=== PATIENT | female | born 1950 | race Asian ===

== ENCOUNTER 2019-09-11 14:54 | Outpatient (CLI) | payer MEDICARE, OTHER, SELFPAY ==
--- NOTE | ~2019-09-11 | MM_ITS ---
EXAMINATION: MM screening melanie BI w josse HISTORY: Screening mammogram, family history of breast cancer in her sister. TECHNIQUE: Craniocaudal and mediolateral oblique 3-D tomosynthesis images were obtained and synthetic 2-D images were generated. CAD analysis was submitted and interpreted. COMPARISON: 08/22/2018, 08/19/2017, 08/16/2016 BREAST PARENCHYMAL COMPOSITION: The breasts are heterogeneously dense, which may obscure small masses . FINDINGS: There is no evidence of suspicious mass, calcification, or architectural distortion to sugg est malignancy in either breast. There has been no suspicious interval change. IMPRESSION: 1. No mammographic evidence of malignancy. 2. Recommend routine screening mammography in one year. BI-RADS Category 1: Negative Reviewed, dictated and finalized at location A.
== END 2019-09-11 14:55 | disposition home or self-care (01) ==
LOC: ANHIMG 15:03
PROVIDERS: PCP Emergency Medicine; Visit Provider Emergency Medicine
DX: Z12.31 Encounter for screening mammogram for malignant neoplasm of breast (principal)
CPT/HCPCS: 77063; 77067

== ENCOUNTER 2019-12-09 12:55 | Emergency (ER) | payer MEDICARE, OTHER, SELFPAY ==
--- NOTE | 2019-12-09 13:00 | ED.ALLEREA ---
HPI - Allergic Reaction General Chief complaint: Anxiety Stated complaint: allegric reaction/weakness Time Seen by Provider: 12/09/19 13:00 Source: patient and RN notes reviewed History of Present Illness HPI narrative: Patient is a 6-year-old female who presents the urgent care with complaints of difficulty breathing, tight jaw, and palpitations. Patient appears to be in distress in the lobby. Patient was taken back to the room immediately and complaining of palpitations and feeling like she is going to pass out . states that she is allergic to multiple foods including all vegetables and fruits . Patient states prior to her arrival she made potato salad and is never had an allergy to potato salad . states that they have been trying to figure out all of her allergies and over the last few years it is been almost every food imaginable . Patient states that this is the worst episode she is ever had . Patient is talking without any difficulty. Patient has been aware of the plan of care. Related Data Home Medications Medication Instructions Recorded Confirmed cholecalciferol (vitamin D3) 25 1,000 unit PO DAILY 06/15/19 mcg (1,000 unit) tablet Allergies Allergy/AdvReac Type Severity Reaction Status Date / Time caffeine AdvReac Severe VERY Verified 11/04/17 07:13 SENSITIVE, HAS RAPID HEART BEAT Review of Systems Review of Systems: Narrative: CONSTITUTIONAL: Denies fever, chills, or sweats. EYES: Denies visual changes, redness, or discharge. ENT: Denies rhinorrhea, congestion, sore throat, or otalgia. CARDIOVASCULAR: Reports of palpitations RESPIRATORY: Reports of dyspnea GASTROINTESTINAL: Denies abdominal pain, nausea, vomiting, or diarrhea. GENITOURINARY: Denies dysuria or hematuria. SKIN: Denies rash or itching. MUSCULOSKELETAL: Denies back pain, joint pain, or myalgia. NEUROLOGIC: Reports of lightheadedness All other systems reviewed are negative, except as documented in HPI. [facility] Past Medical History Medical History (Updated 12/09/19 @ 15:58 by Adarsh Pedersen MD) Vitamin D deficiency disease Surgical History Surgical History (Updated 12/09/19 @ 15:55 by Adarsh Pedersen MD) H/O tubal ligation Social History Social History Smoking status: Former smoker Smoking end date: 07/04/96 Alcohol intake: never Comments At the time of my signature, I reviewed and agree with the nursing past medical, surgical, social, and family history. There is no relevant family history pertinent to the patient complaint. Exam Narrative: Exam Narrative: GENERAL: This is a well-nourished, well-developed patient, extremely anxious and hyperventilating HEAD: normocephalic, atraumatic. EYES: PERRL. Sclera clear/white. Vision is grossly intact. EARS: External ears normal NOSE: External nose normal with no obvious nasal discharge, nares without redness, no rhinorrhea. THROAT: Mucous membranes moist, posterior pharynx clear. NECK: Neck supple, non-tender without lymphadenopathy CARDIOVASCULAR: Tachycardic RESPIRATORY: Clear to auscultation. Breath sounds equal bilaterally. No wheezes, rales, or rhonchi. SKIN: warm, intact with no suspicious lesions or rash, good texture and turgor. NEURO: awake, alert, and oriented to person, place and time. There were no obvious focal neurologic abnormalities. EXTREMITIES: No clubbing, cyanosis, or edema. Course Vital Signs Vital signs: Vital Signs Temperature 98.2 F 12/09/19 13:04 Pulse Rate 101 H 12/09/19 13:04 Respiratory Rate 16 12/09/19 13:04 Blood Pressure 162/90 H 12/09/19 13:04 Pulse Oximetry 100 12/09/19 13:04 Temperature 98.2 F 12/09/19 13:04 Pulse Rate 101 H 12/09/19 13:04 Respiratory Rate 16 12/09/19 13:04 Blood Pressure 162/90 H 12/09/19 13:04 Pulse Oximetry 100 12/09/19 13:04 Reviewed?patient is informed that they may have pre-hypertensi
[2019-12-09 13:04] VITALS: BP 162/90; PULSE 101; RESP 16; TEMP 36.8; O2SAT 100
== END 2019-12-09 13:20 | disposition short-term general hospital (02) ==
LOC: EXPCOLL 13:03
PROVIDERS: Emergency Provider Nurse Practitioner Family
DX: R06.4 Hyperventilation (principal); R68.84 Jaw pain; R00.2 Palpitations; Z87.891 Personal history of nicotine dependence
CPT/HCPCS: 99215; G0463

== ENCOUNTER 2019-12-09 13:45 | Emergency (ER) | payer MEDICARE, OTHER, SELFPAY ==
[2019-12-09] VITALS (9 sets, daily range): BP systolic 126–157; BP diastolic 84–95; PULSE 59–95; RESP 14–31; TEMP 36.6; O2SAT 95–100
--- NOTE | 2019-12-09 14:30 | ECG_ITS ---
Measurements Intervals [place] Rate: 65 P: 59 NC: 166 QRS: 6 QRSD: 108 T: 45 QT: 400 QTc: 417 Interpretive Statements SINUS RHYTHM ATRIAL PREMATURE COMPLEX INCOMPLETE RIGHT BUNDLE BRANCH BLOCK BORDERLINE ECG Electronically Signed On 12-09-2019 16:17:00 CDT by Bertin Reynolds D.O.
[2019-12-09 15:07] LABS: Basophils Absolute Auto 0.1 K/mm3 (0.0-0.1); Basophils Percent Auto 0.9 % (0.2-1.2); Eosinophils Absolute Auto 0.1 K/mm3 (0-0.3); Eosinophils Percent Auto 0.9 % (0-4.4); Hematocrit 39.3 % (37.0-47.0); Hemoglobin 12.9 g/dL (12.0-15.0); Immature Granulocyte Absolute 0.01 K/mm3 (0.00-0.031); Immature Granulocyte Percent A 0.2 % (0-0.5); Lymphocytes Absolute Auto 1.03 K/mm3 (0.9-3.2); Lymphocytes Percent Auto 18.2 % (18.3-44.2); Mean Corpuscular HGB Conc 32.8 g/dl (32-36); Mean Corpuscular Hemoglobin 29.8 pg (26-34); Mean Corpuscular Volume 90.8 fl (80-100); Monocytes Absolute Auto 0.4 K/mm3 (0.1-0.6); Monocytes Percent Auto 6.9 % (2.6-8.5); Neutrophils Absolute Auto 4.1 K/mm3 (1.3-6.7); Neutrophils Percent Auto 72.9 % (45.5-73.1); Platelet Count Result 213 k/mm3 (150-375); Red Blood Count 4.33 M/mm3 (4.2-5.4); Red Cell Distribution Width 14.2 % (11.5-14.5); White Blood Count 5.7 K/mm3 (4.5-10.0)
--- NOTE | 2019-12-09 15:48 | ED.GENADULT ---
HPI - General Adult General Chief complaint: Allergic Reaction Stated complaint: ?allergic rxn vs anxiety Time Seen by Provider: 12/09/19 14:08 History of Present Illness HPI narrative: Patient is a 69-year-old female who presents ER with concerns for allergic reaction. Patient reports she ate some homemade potato salad and then started feeling like her heart was racing. She had no chest pain. She had some mild dyspnea. She thinks now that it may be related to an anxiety attack. Patient recently had an allergic reaction to toothpaste that caused swelling of her throat and lips. She has since discontinued that toothpaste. She will be seeing an car washer in the next week to have additional allergy testing performed. She reports she is sensitive to other foods. Other people of eaten the potato salad without having any side effects or illnesses related to it. Patient symptoms resolved on their own prior to arrival at an urgent care. Today she had no rash or itching. No difficulty swallowing. No swelling of the lips. Related Data Home Medications Medication Instructions Recorded Confirmed cholecalciferol (vitamin D3) 25 1,000 unit PO DAILY 06/15/19 mcg (1,000 unit) tablet Allergies Allergy/AdvReac Type Severity Reaction Status Date / Time caffeine AdvReac Severe VERY Verified 11/04/17 07:13 SENSITIVE, HAS RAPID HEART BEAT Review of Systems Review of Systems: All systems reviewed & are unremarkable except as noted in HPI and below Constitutional: Constitutional: Denies chills, Denies fever(s) and Denies weakness ENT: Denies dysphagia, Denies nasal congestion and Denies sore throat Cardiovascular: Cardiovascular: Denies chest pain and Denies radiating jaw, neck or arm pain Respiratory: Respiratory: Denies cough, Reports dyspnea and Denies wheezing Gastrointestinal: Gastrointestinal: Denies abdominal pain, Denies nausea and Denies vomiting Neurologic: Denies focal weakness and Denies numbness Psychiatric: Psychiatric: Reports anxiety and Denies depression [facility] Past Medical History Medical History (Updated 12/09/19 @ 15:58 by Adarsh Pedersen MD) Vitamin D deficiency disease Surgical History Surgical History (Updated 12/09/19 @ 15:55 by Adarsh Pedersen MD) H/O tubal ligation Social History Social History Smoking status: Former smoker Smoking end date: 07/04/96 Alcohol intake: never Exam Narrative: Exam Narrative: GENERAL: Well-appearing, well-nourished, and in no acute distress. HEAD: Normocephalic, atraumatic. ENT: Mucous membranes moist. Uvula midline, no edema of the lips or tongue. NECK: Supple. CHEST: Clear to auscultation. No respiratory distress. Clear speech. HEART: Regular rate and rhythm. Normal peripheral pulses. ABDOMEN: Soft, nontender, nondistendeds. EXTREMITIES: Normal range of motion. No edema. SKIN: Warm, dry, no rash. NEURO: Alert and oriented x3. Course Course Emergency Course: Patient may have had an anxiety attack. No symptoms while she was here. Recommend follow-up with her PCP. Vital Signs Vital signs: Vital Signs Temperature 97.9 F 12/09/19 13:45 Pulse Rate 95 12/09/19 13:45 Respiratory Rate 14 12/09/19 13:45 Blood Pressure 157/95 H 12/09/19 13:45 Pulse Oximetry 99 12/09/19 13:45 Temperature 97.9 F 12/09/19 13:45 Pulse Rate 67 12/09/19 14:46 Respiratory Rate 16 12/09/19 14:46 Blood Pressure 127/84 12/09/19 14:45 Pulse Oximetry 98 12/09/19 14:46 Medical Decision Making Vital Signs Vital Signs: Vital Signs Temperature 97.9 F 12/09/19 13:45 Pulse Rate 95 12/09/19 13:45 Respiratory Rate 14 12/09/19 13:45 Blood Pressure 157/95 H 12/09/19 13:45 Pulse Oximetry 99 12/09/19 13:45 Temperature 97.9 F 12/09/19 13:45 Pulse Rate 67 12/09/19 14:46 Respiratory Rate 16 12/09/19 14:46 Blood Pressure 127/84 06
[2019-12-09 15:58] LABS: Blood Urea Nitrogen 15 mg/dL (7-17); Calcium 8.8 mg/dL (8.4-10.2); Carbon Dioxide 30 mmol/L (22-30); Chloride 102 mmol/L (98-107); Estimated Glomerular Filt Rate > 60; Glucose 102 mg/dL (65-105); Sodium 136 mmol/L (137-145)
== END 2019-12-09 16:50 | disposition home or self-care (01) ==
PROVIDERS: Emergency Provider Emergency Medicine
DX: R00.2 Palpitations (principal); F41.9 Anxiety disorder, unspecified; E55.9 Vitamin D deficiency, unspecified; Z87.891 Personal history of nicotine dependence; I49.1 Atrial premature depolarization; I45.10 Unspecified right bundle-branch block
CPT/HCPCS: 36415; 80048; 85025; 93005; 99283

== ENCOUNTER 2019-12-14 22:58 | Emergency (ER) | payer MEDICARE, OTHER, SELFPAY ==
--- NOTE | ~2019-12-14 | XR_ITS ---
EXAMINATION: XR chest 2V DATE: 12/14/2019 23:56 INDICATION: Chest pain. TECHNIQUE: Frontal and lateral views of the chest were obtained. COMPARISON: None. FINDINGS: The chest demonstrates clear lungs without pneumonia, pleural effusion, or pneumothorax. Th e heart size is normal. There is mild chronic anterior wedging of L1 and T11 vertebral bodies. IMPRESSION: 1. No acute cardiopulmonary disease. Reviewed, dictated and finalized at location A.
[2019-12-14 23:06] VITALS: BP 164/100; PULSE 80; RESP 17; O2SAT 97
--- NOTE | 2019-12-14 23:15 | ED.CHESTPAIN ---
HPI - Chest Pain General Chief Complaint: Chest Pain Stated Complaint: cp, left arm pain Time Seen by Provider: 12/14/19 23:13 History of Present Illness HPI narrative: 69 yo female w/ h/o anxiety presents to the ED with chest pain. Started earlier this evening. Located in the center of the chest. Associated with posterior neck pain and stiffness radiating to the left shoulder. She has been having issues with anxiety ever since having a recent allergic reaction. She was seen in the ED for this a few days ago and followed up with her PCP. She was provided with prescriptions for anxiety. She has not taken any of them for fear that she may have a bad reaction. Related Data Home Medications Medication Instructions Recorded Confirmed cholecalciferol (vitamin D3) 25 1,000 unit PO DAILY 06/15/19 mcg (1,000 unit) tablet Allergies Allergy/AdvReac Type Severity Reaction Status Date / Time caffeine AdvReac Severe VERY Verified 12/14/19 23:12 SENSITIVE, HAS RAPID HEART BEAT Review of Systems Review of Systems: All systems reviewed & are unremarkable except as noted in HPI and below Constitutional: Constitutional: Denies fever(s) Cardiovascular: Cardiovascular: Reports chest pain and Reports radiating jaw, neck or arm pain Respiratory: Respiratory: Reports dyspnea Gastrointestinal: Gastrointestinal: Denies abdominal pain Psychiatric: Psychiatric: Reports anxiety [facility] Past Medical History Medical History Vitamin D deficiency disease Family History Family History Mother Family history of lung cancer, Onset Age: 76 Sibling Diabetes mellitus Family history of cardiovascular disease Family history of malignant neoplasm of breast in first degree relative, Onset Age: 64 Father Hypertension Social History Social History Smoking status: Former smoker Smoking end date: 07/04/96 Alcohol intake: never Exam Const: General: healthy appearing, no acute distress and alert Orientation/consciousness: patient oriented x3 HENMT: Head: normal to inspection Neck: Neck: normal visual inspection and no lymphadenopathy Chest: Chest palpation & inspection: no tenderness Resp: Effort & Inspection: normal respiratory effort Auscultation: clear to auscultation bilaterally, no rales, no rhonchi and no wheezes Cardio: Jugular venous distension: no JVD Rate: regular rate Rhythm: regular rhythm Heart sounds: no murmurs GI: Inspection: non-distended GI Palp: Yes Soft to palpation and No Tenderness to palpation present (GI) Back/Spine/Pelvis: Other: tender cervical paraspinal muscles and occiput on the left Skin: General skin exam: normal color Neuro: General: patient oriented x3 and moves all extremities Speech: normal speech Extrem: General: no edema Psych: Appearance: well kempt Affect: normal affect Course Vital Signs Vital signs: Vital Signs Pulse Rate 80 12/14/19 23:06 Respiratory Rate 17 12/14/19 23:06 Blood Pressure 164/100 H 12/14/19 23:06 Pulse Oximetry 97 12/14/19 23:06 Pulse Rate 60 12/15/19 03:25 Respiratory Rate 18 12/15/19 03:25 Blood Pressure 128/85 12/15/19 03:25 Pulse Oximetry 99 12/15/19 03:25 MDM - Chest Pain MDM Narrative Medical decision making narrative: symptoms seem most consistent with anxiety. EKG unchanged. Troponin negative x1. Drawn a few hours after onset of pain. Pain relieved with 0.5 mg of ativan. Medical Records Data Attestation: I reviewed the patient's medical records. Lab Data Attestation: I reviewed the patient's lab results. Result diagrams: 12/14/19 23:44 12/15/19 01:26 Labs: Lab Results 12/14/19 12/14/19 12/15/19 Range/Units 23:44 23:44 01:26 WBC 8.3 (4.5-10.0) K/mm3 RBC 4.2
--- NOTE | 2019-12-14 23:25 | ECG_ITS ---
Measurements Intervals [place] Rate: 74 P: 66 MD: 156 QRS: -7 QRSD: 98 T: 34 QT: 398 QTc: 442 Interpretive Statements SINUS RHYTHM ATRIAL PREMATURE COMPLEX POSSIBLE LEFT ATRIAL ENLARGEMENT LOW QRS VOLTAGE IN PRECORDIAL LEADS INCOMPLETE RIGHT BUNDLE BRANCH BLOCK BORDERLINE ST-T WAVE ABNORMALITY- ANT/INF LEADS BASELINE ARTIFACT- I, III, AVL BORDERLINE ECG Electronically Signed On 12-15-2019 7:22:33 CDT by Bertin Reynolds D.O.
[2019-12-14] MEDS: ASPIRIN 81 MG CHEWABLE TABLET 324 MG PO (23:34)
[2019-12-14] MEDS: LORAZEPAM INJ 2 MG/ML VIAL 0.5 MG IV PUSH (23:36)
[2019-12-14 23:54] LABS: Basophils Absolute Auto 0.1 K/mm3 (0.0-0.1); Basophils Percent Auto 0.8 % (0.2-1.2); Eosinophils Absolute Auto 0.1 K/mm3 (0-0.3); Eosinophils Percent Auto 1.2 % (0-4.4); Hematocrit 38.5 % (37.0-47.0); Hemoglobin 12.8 g/dL (12.0-15.0); Immature Granulocyte Absolute 0.02 K/mm3 (0.00-0.031); Immature Granulocyte Percent A 0.2 % (0-0.5); Lymphocytes Absolute Auto 2.78 K/mm3 (0.9-3.2); Lymphocytes Percent Auto 33.5 % (18.3-44.2); Mean Corpuscular HGB Conc 33.2 g/dl (32-36); Mean Corpuscular Hemoglobin 30.1 pg (26-34); Mean Corpuscular Volume 90.6 fl (80-100); Mean Platelet Volume 10.7 fl (7.4-10.4); Monocytes Absolute Auto 0.6 K/mm3 (0.1-0.6); Neutrophils Absolute Auto 4.7 K/mm3 (1.3-6.7); Neutrophils Percent Auto 57.3 % (45.5-73.1); Platelet Count Result 234 k/mm3 (150-375); Red Blood Count 4.25 M/mm3 (4.2-5.4); Red Cell Distribution Width 14.3 % (11.5-14.5); White Blood Count 8.3 K/mm3 (4.5-10.0)
[2019-12-15 00:11] LABS: Prothrombin Time 13.2 Seconds (11.1-14.7)
[2019-12-15 00:12] LABS: Partial Thromboplastin Time 23.7 SECONDS (22.3-36.8)
[2019-12-15 00:15] VITALS: BP 110/70; PULSE 70; RESP 15; O2SAT 97
[2019-12-15 00:39] VITALS: PULSE 64
[2019-12-15 01:46] VITALS: BP 125/83; PULSE 59; RESP 17; O2SAT 99
[2019-12-15 01:53] LABS: Blood Urea Nitrogen 21 mg/dL (7-17); Calcium 8.5 mg/dL (8.4-10.2); Carbon Dioxide 27 mmol/L (22-30); Chloride 102 mmol/L (98-107); Estimated Glomerular Filt Rate > 60; Glucose 100 mg/dL (65-105); Potassium 3.8 mmol/L (3.4-5.0); Sodium 135 mmol/L (137-145)
[2019-12-15 02:13] LABS: Troponin I < 0.012 ng/mL (0.000-0.034)
[2019-12-15 03:25] VITALS: BP 128/85; PULSE 60; RESP 18; O2SAT 99
== END 2019-12-15 03:25 | disposition home or self-care (01) ==
PROVIDERS: Emergency Provider Emergency Medicine; PCP Emergency Medicine
DX: R07.9 Chest pain, unspecified (principal); E55.9 Vitamin D deficiency, unspecified; Z87.891 Personal history of nicotine dependence; I49.1 Atrial premature depolarization; I45.10 Unspecified right bundle-branch block; R94.31 Abnormal electrocardiogram [ECG] [EKG]
CPT/HCPCS: 36415; 71046; 80048; 84484; 85025; 85610; 85730; 93005; 96374; 99284; A9270; J2060

== ENCOUNTER 2020-02-11 08:00 | Outpatient (CLI) | payer MEDICARE, OTHER, SELFPAY ==
[2020-02-11 08:26] LABS: Alanine Aminotransferase 26 U/L (4-35); Albumin Level 3.8 g/dL (3.5-5.1); Alkaline Phosphatase 52 U/L (38-126); Anion Gap 4 mmol/L (8-16); Aspartate Amino Transferase 35 U/L (14-36); Bilirubin,Total 0.5 mg/dL (0.2-1.3); Blood Urea Nitrogen 20 mg/dL (7-17); Calcium 8.6 mg/dL (8.4-10.2); Carbon Dioxide 31 mmol/L (22-30); Chloride 104 mmol/L (98-107); Cholesterol 207 mg/dL (0-200); Estimated Glomerular Filt Rate > 60; Glucose 92 mg/dL (65-105); HDL Direct 75 mg/dL; Sodium 139 mmol/L (137-145); Triglycerides 48 mg/dL (<150)
[2020-02-11 08:37] LABS: LDL Cholesterol Direct 108 mg/dL
[2020-02-11 09:15] LABS: Vitamin D 25 Hydroxy 41.2 ng/mL
== END 2020-02-11 08:01 | disposition home or self-care (01) ==
LOC: ANHLAB 08:03
PROVIDERS: PCP Emergency Medicine; Visit Provider Emergency Medicine
DX: E78.2 Mixed hyperlipidemia (principal); E55.9 Vitamin D deficiency, unspecified
CPT/HCPCS: 36415; 80053; 80061; 82306

== ENCOUNTER 2020-04-16 00:56 | Outpatient (CLI) | payer MEDICARE, OTHER, SELFPAY ==
[2020-04-16 18:39] LABS: SARS-CoV-2 RNA PCR Negative
== END 2020-04-16 00:57 | disposition home or self-care (01) ==
LOC: ANHCOVIDDT 00:57
PROVIDERS: PCP Emergency Medicine; Visit Provider Internal Medicine Gastroenterology
DX: Z01.812 Encounter for preprocedural laboratory examination (principal); Z20.828 Contact with and (suspected) exposure to other viral communicable diseases
CPT/HCPCS: 87635; C9803; U0003

== ENCOUNTER 2020-04-18 01:47 | Day surgery (SDC) | payer MEDICARE, OTHER, SELFPAY ==
[2020-04-10 14:42] VITALS: BMI 17.9
[2020-04-18 07:18] VITALS: BP 147/91; PULSE 72; RESP 20; TEMP 36.4; O2SAT 100
[2020-04-18] MEDS: LACTATED RINGERS 1,000 ML 150 ML IV CONT (07:32)
--- NOTE | 2020-04-18 07:46 | WPDANESEPPF ---
Anes - Initial Pre Proc Eval Procedure: Operation Date: 04/18/20 08:30 Proposed Procedures p Esophagogastroduodenoscopy - Lakhwinder Michaels MD Date/Time: 04/18/20 07:46 Surgeon: Lakhwinder Michaels MD Pre Op Diagnosis: GERD, Epigastric Pain Patient Data Age: 69 Gender: F Height: 4 ft 10 in Weight: 38.8 kg Last Vital Signs Temp 97.5 F L 04/18/20 07:18 Pulse 72 04/18/20 07:18 Resp 20 04/18/20 07:18 BP 147/91 H 04/18/20 07:18 Pulse Ox 100 04/18/20 07:18 Allergies Allergy/AdvReac Type Severity Reaction Status Date / Time caffeine AdvReac Severe VERY Verified 04/18/20 07:17 SENSITIVE, HAS RAPID HEART BEAT Home Medications Medication Instructions Recorded Confirmed Type cholecalciferol (vitamin D3) 25 1,000 unit PO DAILY 06/15/19 04/18/20 History mcg (1,000 unit) tablet famotidine 20 mg tablet 20 mg PO BID 02/06/20 04/10/20 History Patient hx anesthesia problems: none Family hx anesthesia problems: none PMFSH Past Medical History Medical History (Updated 04/18/20 @ 07:42 by Frank Duarte MD) Anxiety GERD (gastroesophageal reflux disease) Vitamin D deficiency disease Surgical History Surgical History H/O tubal ligation Family History Family History Mother Family history of lung cancer, Onset Age: 76 Sibling Diabetes mellitus Family history of cardiovascular disease Family history of malignant neoplasm of breast in first degree relative, Onset Age: 64 Father Hypertension Social History Social History Smoking packs per day: 1 Smoking cigarettes per day: 20.0 Years smoked: 10 Smoking pack-years: 10.00 Smoking status: Former smoker Smoking end date: 07/04/96 Alcohol intake: never Living arrangements: with family Gender identity (if verbalized by the patient): Female Spiritual care concerns: No Anes - Eval Final PreProcedure Day of Procedure 04/18/20 07:46 Patient weight: normal Heart: regular rate and rhythm Lungs: clear to auscultation Airway: Mallampati scale class II Neurological: alert and oriented Last oral intake: >/= 8 hours ASA classification: II Emergent: no Anesthetic plan: proceed Anesthesia type and monitoring: general and standard monitoring Informed Consent: The patient's anesthetic plan and its attendant risks and benefits were discussed with the patient/family/POA. Questions were solicited and answers provided to the satisfaction of the patient/family/POA.
--- NOTE | 2020-04-18 08:03 | WPDGICN ---
Assessment and Plan Assessment and plan (1) Epigastric abdominal pain: Code(s): R10.13 - Epigastric pain Status: Acute Assessment and Plan: Patient has persistent epigastric pain. This appears to be related to peptic disease. Plan is to continue Pepcid. Proceed with EGD consider proton pump inhibitors pending results of endoscopy. Additionally her throat pain appears to be related to acid reflux based on ENT evaluation further recommendations will be given after endoscopy. (2) Throat pain: Code(s): R07.0 - Pain in throat Status: Acute GI Consult Note Consult date/time: 04/18/20 08:03 HPI: Blanka Osborn is a 69 year old female Presents for evaluation of epigastric pain. Patient reports epigastric discomfort after eating over the last 4-5 months. This is worse after eating. Somewhat improved on taking Pepcid. She also notes a throat discomfort over 4-5 months that is burning. Symptoms worsened at night. Somewhat improve after drinking milk Septra. Patient had recent ENT evaluation that suggested acid reflux. Over the last 2 months she has been treated with Pepcid. Epigastric pain persists throat burning has also persisted. Review of Systems Review of Systems: All systems reviewed & are unremarkable except as noted in HPI and below PMFSH Past Medical History Medical History (Updated 04/18/20 @ 08:05 by Lakhwinder Michaels MD) Anxiety GERD (gastroesophageal reflux disease) Vitamin D deficiency disease Surgical History Surgical History H/O tubal ligation Family History Family History Mother Family history of lung cancer, Onset Age: 76 Sibling Diabetes mellitus Family history of cardiovascular disease Family history of malignant neoplasm of breast in first degree relative, Onset Age: 64 Father Hypertension Social History Social History Smoking packs per day: 1 Smoking cigarettes per day: 20.0 Years smoked: 10 Smoking pack-years: 10.00 Smoking status: Former smoker Smoking end date: 07/04/96 Alcohol intake: never Living arrangements: with family Gender identity (if verbalized by the patient): Female Spiritual care concerns: No Meds Home Medications and Allergies Home Medications Medication Instructions Recorded Confirmed Type cholecalciferol (vitamin D3) 25 1,000 unit PO DAILY 06/15/19 04/18/20 History mcg (1,000 unit) tablet famotidine 20 mg tablet 20 mg PO BID 02/06/20 04/10/20 History Allergies Allergy/AdvReac Type Severity Reaction Status Date / Time caffeine AdvReac Severe VERY Verified 04/18/20 07:17 SENSITIVE, HAS RAPID HEART BEAT Vital Signs Vital Signs - 24 hr 04/18/20 07:18 Temperature 97.5 F L Pulse Rate 72 Respiratory Rate 20 Blood Pressure 147/91 H Pulse Oximetry 100 Exam Narrative: Exam Narrative: Physical exam reveals patient to be alert. She was thin in appearance. Vital signs are stable. HEENT exam is unremarkable. Lungs are clear to auscultation and percussion. Heart is without murmur or extra sounds. Abdominal exam bowel sounds are present soft mild midepigastric tenderness is noted. There is no masses.
[2020-04-18] MEDS: BENZOCAINE (*SP) 60 ML SPRAY CAN (HURRICAINE) 1 SPRAY MUCOUS MEM (08:33)
[2020-04-18 08:46] VITALS: BP 113/72; PULSE 72; RESP 16; O2SAT 100
[2020-04-18 08:56] VITALS: BP 129/82; PULSE 64; RESP 16; O2SAT 100
[2020-04-18 09:06] VITALS: BP 132/74; PULSE 67; RESP 16; O2SAT 100
--- NOTE | 2020-04-18 14:30 | SUR.PHASEII ---
0915 H.Pylori positive. Showed test cartridge to Dr. Michaels. Received scripts to send with patient at discharge.
== END 2020-04-18 09:56 | disposition home or self-care (01) ==
PROVIDERS: PCP Emergency Medicine; Visit Provider Internal Medicine Gastroenterology
PROC: 0DJ08ZZ Inspection of Upper Intestinal Tract, Via Natural or Artificial Opening Endoscopic (ICD-10-PCS; CPT 43235; principal; 2020-04-18 08:30)
DX: R10.13 Epigastric pain (principal); R07.0 Pain in throat; K21.9 Gastro-esophageal reflux disease without esophagitis; E55.9 Vitamin D deficiency, unspecified; F41.9 Anxiety disorder, unspecified; Z87.891 Personal history of nicotine dependence
CPT/HCPCS: 43239; 87081; J2704; J7120

== ENCOUNTER 2020-05-10 09:35 | Outpatient (NON) | payer MEDICARE, OTHER, SELFPAY ==
[2020-05-12 00:53] LABS: SARS-CoV-2 RNA PCR Negative
== END 2020-05-10 09:36 ==
LOC: ANHCOVIDDT 09:37
PROVIDERS: PCP Emergency Medicine; Visit Provider Emergency Medicine
DX: R50.9 Fever, unspecified (principal); R51.9 Headache, unspecified; Z20.828 Contact with and (suspected) exposure to other viral communicable diseases
CPT/HCPCS: 87635; C9803; U0003

== ENCOUNTER 2020-05-10 11:17 | Emergency (ER) | payer MEDICARE, OTHER, SELFPAY ==
[2020-05-10 11:32] VITALS: BP 141/99; PULSE 97; RESP 16; TEMP 37.4; O2SAT 99
--- NOTE | 2020-05-10 11:45 | ED.URI ---
HPI - URI/Sore Throat General Chief Complaint: Upper Respiratory Infection Stated Complaint: Fever/Sore Throat/Rash Time Seen by Provider: 05/10/20 11:40 Source: patient Mode of arrival: ambulatory Limitations: no limitations History of Present Illness HPI Narrative: Blanka Osborn is a 69 yo female who has PMH of GERD [facility] that started on Tuesday. She completed 2 antibiotics, amoxicillin and clarithromycin for an intra-abdominal infection and was started on omeprazole yesterday.-Started between these medications. She has them on her chest and abdomen to her face; denies any change in soaps or perfumes, has some itching MD elicited complaint: rhinorrhea Related Data Home Medications Medication Instructions Recorded Confirmed cholecalciferol (vitamin D3) 25 1,000 unit PO DAILY 06/15/19 05/10/20 mcg (1,000 unit) tablet famotidine 20 mg tablet 20 mg PO BID 02/06/20 05/10/20 omeprazole 20 mg PO DAILY 05/10/20 05/10/20 Allergies Allergy/AdvReac Type Severity Reaction Status Date / Time caffeine AdvReac Severe VERY Verified 05/10/20 11:25 SENSITIVE, HAS RAPID HEART BEAT Review of Systems Review of Systems: Narrative: CONSTITUTIONAL: Denies fever, chills, sweats. EYES: Denies visual changes, redness, discharge. ENT: Denies rhinorrhea, congestion, sore throat, otalgia. CARDIOVASCULAR: Denies chest pain, palpitations, edema. RESPIRATORY: Denies dyspnea, wheezing, cough GASTROINTESTINAL: Denies abdominal pain, nausea, vomiting, diarrhea. GENITOURINARY: Denies dysuria, hematuria, abnormal discharge SKIN: Denies rash or itching. Hives on chest and face, NEUROLOGIC: Denies numbness, or focal weakness. PSYCHIATRIC: Denies anxiety or depression. [facility] Past Medical History Medical History Anxiety GERD (gastroesophageal reflux disease) Vitamin D deficiency disease Surgical History Surgical History H/O tubal ligation Family History Family History Mother Family history of lung cancer, Onset Age: 76 Sibling Diabetes mellitus Family history of cardiovascular disease Family history of malignant neoplasm of breast in first degree relative, Onset Age: 64 Father Hypertension Social History Social History Smoking packs per day: 1 Smoking cigarettes per day: 20.0 Years smoked: 10 Smoking pack-years: 10.00 Smoking status: Former smoker Smoking end date: 07/04/96 Alcohol intake: never Gender identity (if verbalized by the patient): Female Spiritual care concerns: No Comments At time of signature, I agree with nursing past medical, surgical, social and family history. There is no relevant family history pertinent to the presenting complaint. E Exam Narrative: Exam Narrative: GENERAL: This is a well-nourished, well-developed patient, in mild distress. Face neck red HEAD: normocephalic, atraumatic. EYES: Sclera clear/white. Vision is grossly intact. EARS: External ears normal, . Hearing grossly intact. NOSE: External nose normal without nasal discharge, nares without redness, no rhinorrhea. THROAT: Mucous membranes moist, posterior pharynx airway open able to speak without difficulty NECK: Neck supple, non-tender CARDIOVASCULAR: Regular rate and rhythm without murmurs, gallops, or rubs. RESPIRATORY: Clear to auscultation. Breath sounds equal bilaterally. No wheezes, rales, or rhonchi. GASTROINTESTINAL: Abdomen soft, non-tender, SKIN: warm, intact with raised hives on neck and face-mild swelling of eyelids NEURO: awake, alert, and oriented to person, place and time. There were no obvious focal neurologic abnormalities. Steady gait EXTREMITIES: Normal range of motion. BACK: Nontender without deformity Course Cours
[2020-05-10] MEDS: diphenhydrAMINE HCl CAP 25 MG CAPSULE PO (12:07)
== END 2020-05-10 12:35 | disposition home or self-care (01) ==
PROVIDERS: Emergency Provider Nurse Practitioner; PCP Emergency Medicine
DX: L50.9 Urticaria, unspecified (principal); Z87.891 Personal history of nicotine dependence; K21.9 Gastro-esophageal reflux disease without esophagitis; E55.9 Vitamin D deficiency, unspecified
CPT/HCPCS: 87081; 87635; 87880; 96372; 99213; A9270; C9803; G0463; J1100; U0003

== ENCOUNTER 2020-05-20 13:58 | Outpatient (CLI) | payer MEDICARE, OTHER, SELFPAY ==
[2020-05-20 14:32] LABS: Basophils Percent Auto 0.5 % (0.2-1.2); Eosinophils Absolute Auto 0.2 K/mm3 (0-0.3); Eosinophils Percent Auto 2.9 % (0-4.4); Hematocrit 40.9 % (37.0-47.0); Hemoglobin 13.7 g/dL (12.0-15.0); Immature Granulocyte Absolute 0.03 K/mm3 (0.00-0.031); Immature Granulocyte Percent A 0.5 % (0-0.5); Lymphocytes Absolute Auto 1.83 K/mm3 (0.9-3.2); Lymphocytes Percent Auto 27.6 % (18.3-44.2); Mean Corpuscular HGB Conc 33.5 g/dl (32-36); Mean Corpuscular Hemoglobin 30.9 pg (26-34); Mean Corpuscular Volume 92.1 fl (80-100); Mean Platelet Volume 10.2 fl (7.4-10.4); Monocytes Absolute Auto 0.4 K/mm3 (0.1-0.6); Monocytes Percent Auto 6.3 % (2.6-8.5); Neutrophils Absolute Auto 4.1 K/mm3 (1.3-6.7); Neutrophils Percent Auto 62.2 % (45.5-73.1); Platelet Count Result 232 k/mm3 (150-375); Red Blood Count 4.44 M/mm3 (4.2-5.4); Red Cell Distribution Width 15.3 % (11.5-14.5); White Blood Count 6.6 K/mm3 (4.5-10.0)
[2020-05-20 14:45] LABS: CRP < 0.5 mg/dL (<1.0)
[2020-05-20 15:04] LABS: Erythrocyte Sedimentation Rate 13 mm/hr (0-20)
[2020-05-20 15:13] LABS: Thyroid Stimulating Hormone 0.859 uIU/mL (0.465-4.680)
[2020-05-20 18:09] LABS: Hepatitis B Core IgM Result Negative (Negative)
[2020-05-22 12:43] LABS: Triiodothryronine T3 Uptake 35 % (22-35)
== END 2020-05-20 13:59 | disposition home or self-care (01) ==
PROVIDERS: PCP Emergency Medicine; Visit Provider Emergency Medicine
DX: R10.84 Generalized abdominal pain (principal); R68.89 Other general symptoms and signs; R63.4 Abnormal weight loss; R50.9 Fever, unspecified
CPT/HCPCS: 36415; 84439; 84443; 84479; 85025; 85652; 86140; 86705; 87522

== ENCOUNTER 2020-05-22 11:17 | Outpatient (CLI) | payer MEDICARE, OTHER, SELFPAY ==
[2020-05-22 12:14] LABS: IFOB Positive Control Positive; Immunochemical Fecal Occult Bl Negative (N)
== END 2020-05-22 11:18 | disposition home or self-care (01) ==
LOC: ANHLAB 11:19
PROVIDERS: PCP Emergency Medicine; Visit Provider Emergency Medicine
DX: R50.9 Fever, unspecified (principal); R63.4 Abnormal weight loss
CPT/HCPCS: 82274

== ENCOUNTER 2020-05-23 15:57 | Outpatient (CLI) | payer MEDICARE, OTHER, SELFPAY ==
--- NOTE | ~2020-05-23 | CT_ITS ---
EXAMINATION: CT chest abdomen pelvis wo con EXAM DATE: 05/23/2020 16:16 INDICATION: R10.84 - Generalized abdominal pain . Acid reflux. TECHNIQUE: Spiral CT of the chest, abdomen and pelvis was performed without contrast. Axial, britt l and sagittal images were reviewed. The dose-length product (DLP) for this examination was 246.33 m Gy-cm. The exposure was tailored according to patient size (auto mA exposure control), and iterative reconstruction (ASIR) was used as additional dose reduction technique. There is no prior study for comparison. FINDINGS: CHEST: The lungs are clear. There are no pleural or pericardial effusions. Tracheobronchial tree is patent. There is no mediastinal, hilar or axillary lymphadenopathy. There is no pneumothorax. Heart normal in size. No evidence of coronary arterial calcification. ABDOMEN PELVIS: There are multiple renal cysts. There is a lobular liver hypodensity which could be a proteinaceous cyst but is indeterminate on this noncontrast study measuring 3.1 cm in segment 7. Gal lbladder is unremarkable. No biliary obstruction. There is 2 mm right inferior calyceal stone. No ur eteral stones or hydronephrosis. The uterus is not identified and has likely been surgically resected . The bladder is unremarkable. There is no retroperitoneal or pelvic lymphadenopathy. The appendix is normal. The stomach and small bowel are unremarkable. There is colonic redundancy w ith moderate to large amount of colonic stool. No free intraperitoneal gas. There are no osteobla stic or osteolytic lesions identified. IMPRESSION: 1. Indeterminate lobular right liver dome mass, could be proteinaceous cyst, benign or malignant his tology. Liver MRI without and with contrast would be most specific for evaluating. 2. Colonic redundancy with moderate to large amount of colonic stool. 3. Small right nephrolithiasis. Reviewed, dictated and finalized at location A. NDER BATCHER IMPRESSION: 1. Indeterminate lobular right liver dome mass, could be proteinaceous cyst, b enign or malignant histology. Liver MRI without and with contrast would be most specific for evaluating. 2. Colonic redundancy with moderate to large amount of colonic stool. 3. Small right nephrolithiasis.
== END 2020-05-23 15:58 | disposition home or self-care (01) ==
PROVIDERS: PCP Emergency Medicine; Visit Provider Emergency Medicine
DX: R10.84 Generalized abdominal pain (principal); R63.4 Abnormal weight loss; N28.1 Cyst of kidney, acquired; N20.0 Calculus of kidney; R16.0 Hepatomegaly, not elsewhere classified
CPT/HCPCS: 71250; 74176; 99213; G0463

== ENCOUNTER 2020-05-23 16:52 | Emergency (ER) | payer MEDICARE, OTHER, SELFPAY ==
[2020-05-23 17:02] VITALS: BP 149/96; PULSE 79; RESP 18; TEMP 37.4; O2SAT 97
--- NOTE | 2020-05-23 17:17 | ED.SKABFB ---
HPI - Skin/Abscess/Foreign Bdy General Chief complaint: Skin/Abscess/Foreign Body Stated complaint: Redness of Face Time Seen by Provider: 05/23/20 17:06 Source: patient, RN notes reviewed and old records reviewed Mode of arrival: ambulatory Limitations: no limitations History of Present Illness HPI narrative: Patient presents today complaining of of pruritic and burning rash to her face since yesterday, but worse since this morning. States she had a similar rash occur to her face, but to a worse degree, on 05/10/2020, and was subsequently seen at [facility] at that time, diagnosed with hives, and given a dexamethasone taper. She did finish the steroids. Patient is being worked up for multiple food allergies. States she has Benadryl at home, but has not taken any for her current symptoms. Denies shortness of breath or difficulty swallowing. Denies swelling of the lips or tongue. complaint: rash Related Data Home Medications Medication Instructions Recorded Confirmed diphenhydramine HCl [Benadryl] 25 mg PO TID 05/23/20 05/23/20 omeprazole magnesium [Prilosec OTC] 20 mg PO DAILY 05/23/20 05/23/20 Allergies Allergy/AdvReac Type Severity Reaction Status Date / Time caffeine AdvReac Severe VERY Verified 05/23/20 17:10 SENSITIVE, HAS RAPID HEART BEAT food Allergy Other Uncoded 05/23/20 17:10 Review of Systems Review of Systems: Narrative: CONSTITUTIONAL: Denies body aches, fever, chills, or sweats. EYES: Denies visual changes, redness, or discharge. ENT: Denies rhinorrhea, congestion, sore throat, or otalgia. CARDIOVASCULAR: Denies chest pain, palpitations, or edema. RESPIRATORY: Denies cough or dyspnea. GASTROINTESTINAL: Denies abdominal pain, nausea, vomiting, or diarrhea. GENITOURINARY: Denies dysuria or hematuria. SKIN: Denies wounds.+ Rash to face MUSCULOSKELETAL: Denies back pain, joint pain, or myalgia. NEUROLOGIC: Denies headache, numbness, tingling, or weakness. PSYCH: Denies depression or anxiety. [facility] Past Medical History Medical History Anxiety GERD (gastroesophageal reflux disease) Vitamin D deficiency disease Surgical History Surgical History H/O tubal ligation Family History Family History Mother Family history of lung cancer, Onset Age: 76 Sibling Diabetes mellitus Family history of cardiovascular disease Family history of malignant neoplasm of breast in first degree relative, Onset Age: 64 Father Hypertension Social History Social History Smoking packs per day: 1 Smoking cigarettes per day: 20.0 Years smoked: 10 Smoking pack-years: 10.00 Smoking status: Former smoker Smoking end date: 07/04/96 Alcohol intake: never Gender identity (if verbalized by the patient): Female Spiritual care concerns: No Comments At time of signature, I have reviewed and agree with nursing past medical, surgical, social and family history unless otherwise noted. Please see nursing chart for further information. There is no relevant family history pertinent to the presenting complaint Exam Narrative: Exam Narrative: GENERAL: Well-appearing, well-nourished, and in no acute distress. HEAD: Normocephalic, atraumatic. EYES: EOMI. No redness or drainage. Conjunctivae normal. Mildly erythematous urticarial rash to forehead, bilateral cheeks, causing mild edema of same areas. ENT: Mucous membranes pink and moist. Nares clear. No rhinorrhea. TMs normal bilaterally. Throat normal. Uvula midline. Lips and tongue are normal. NECK: Normal AROM. CHEST: No respiratory distress. EXTREMITIES: Normal range of motion. No edema. SKIN: Warm, dry. Capillary refill normal. Normal skin turgor. NEURO: No focal deficits. Alert and oriente
== END 2020-05-23 17:27 | disposition home or self-care (01) ==
PROVIDERS: Emergency Provider Nurse Practitioner; PCP Emergency Medicine
DX: L50.9 Urticaria, unspecified (principal); Z87.891 Personal history of nicotine dependence; K21.9 Gastro-esophageal reflux disease without esophagitis
CPT/HCPCS: 99213; G0463

== ENCOUNTER 2020-05-30 08:59 | Outpatient (CLI) | payer MEDICARE, OTHER, SELFPAY ==
--- NOTE | ~2020-05-30 | MR_ITS ---
EXAMINATION: MR abdomen wo/w con DATE: 05/30/2020 10:39 INDICATION: Liver mass. TECHNIQUE: Magnetic resonance imaging (MRI) of the abdomen was performed without and with 7 mL MultiH ance intravenous contrast. Sequences included coronal T2-weighted FS FSE, coronal and axial FS FIESTA , axial T2-weighted FSE, coronal LAVA-flex, axial STIR FSE, axial DWI, axial dual-echo T1-weighted FS PGR, and axial LAVA. Postcontrast sequences included coronal LAVA-flex and a time course of axial LAV A. COMPARISON: CT abdomen and pelvis 05/23/2020 FINDINGS: There are cysts in the liver measuring up to 4.5 cm. There is a 3.5 cm mass in right hepatic lobe wit h interrupted peripheral puddling of contrast, consistent with a hemangioma. The spleen, gallbladder, pancreas, and adrenal glands are normal. There are cysts in the kidneys measuring up to 5 mm on the left. There are no dilated loops of bowel. There are no pathologically enlarged lymph nodes. There is no free intraperitoneal fluid. IMPRESSION: 1. 3.5 cm hemangioma in the liver correlating with the CT abnormality. Reviewed, dictated and finalized at location A. ATRIC ORTHODONTIST
[2020-05-30 09:56] LABS: Estimated Glomerular Filt Rate > 60
== END 2020-05-30 09:00 | disposition home or self-care (01) ==
LOC: ANHIMG 09:01
PROVIDERS: PCP Emergency Medicine; Visit Provider Emergency Medicine
DX: R16.0 Hepatomegaly, not elsewhere classified (principal); D18.09 Hemangioma of other sites; K76.89 Other specified diseases of liver
CPT/HCPCS: 74183; A9577

== ENCOUNTER 2020-08-26 15:07 | Outpatient (CLI) | payer MEDICARE, OTHER, SELFPAY ==
[2020-08-26 15:37] LABS: Alanine Aminotransferase 22 U/L (4-35); Albumin Level 4.1 g/dL (3.5-5.1); Alkaline Phosphatase 56 U/L (38-126); Anion Gap 4 mmol/L (8-16); Aspartate Amino Transferase 31 U/L (14-36); Bilirubin,Total 0.3 mg/dL (0.2-1.3); Blood Urea Nitrogen 24 mg/dL (7-17); Carbon Dioxide 31 mmol/L (22-30); Chloride 105 mmol/L (98-107); Estimated Glomerular Filt Rate > 60; Glucose 104 mg/dL (65-105); Potassium 4.4 mmol/L (3.4-5.0); Sodium 140 mmol/L (137-145)
== END 2020-08-26 15:08 | disposition home or self-care (01) ==
LOC: ANHLAB 15:10
PROVIDERS: PCP Emergency Medicine; Visit Provider Emergency Medicine
DX: E78.5 Hyperlipidemia, unspecified (principal)
CPT/HCPCS: 36415; 80053

== ENCOUNTER 2020-10-13 08:40 | Outpatient (CLI) | payer MEDICARE, OTHER, SELFPAY ==
--- NOTE | ~2020-10-13 | DEXA_ITS ---
Bone Density Report Name: Blanka Osborn Age: 70 Sex: Female Ethnicity: Date of : 1950 Indication: osteopenia; monitoring treatment; height loss; hysterectomy; Referring Provider: RASHAD DUNN Study: Bone densitometry was performed. Exam Date: October 13, 2020 Accession number: [id number] Bone Density: Region BMD T-score Z-score Classification AP Spine (L1, L2, L3) 0.785 -2.1 0.0 Osteopenia Femoral Neck (Left) 0.556 -2.6 -0.8 Osteoporosis Total Hip (Left) 0.698 -2.0 -0.4 Osteopenia Total Hip Bilateral Avg 0.724 -1.8 -0.2 Osteopenia Femoral Neck (Right) 0.568 -2.5 -0.7 Osteoporosis Total Hip (Right) 0.749 -1.6 0.0 Osteopenia World Health Organization criteria for BMD impression classify patients as: Normal (T-score at or above -1.0), Osteopenia (T-score between -1.0 and -2.5), or Osteoporosis (T-score at or below -2.5). 10-year Fracture Risk: FRAX not reported because: Some T-score for Spine Total or Hip Total or Femoral Neck at or below -2.5 Treated for osteoporosis Previous Exams: Region Exam Age BMD T-score BMD Change BMD Change Date g/cm2 vs Baseline vs Previous AP Spine(L1, L2, L3) 10/13/2020 70 0.785 -2.1 0.037(5.0%)# -0.011(-1.3%) 08/16/2016 66 0.796 -2.0 0.048(6.4%)# 0.041(5.4%)* 07/26/2014 64 0.755 -2.4 0.007(0.9%)# 0.007(0.9%)# 07/19/2011 61 0.748 -2.5 Total Hip(Left) 10/13/2020 70 0.698 -2.0 -0.032(-4.4%)# -0.114(-14.0%) 08/22/2018 68 0.811 -1.1 0.082(11.2%)# 0.141(21.0%)* 08/16/2016 66 0.670 -2.2 -0.059(-8.1%)# -0.062(-8.4%)* 07/26/2014 64 0.732 -1.7 0.003(0.3%)# 0.003(0.3%)# 07/19/2011 61 0.730 -1.7 Total Hip(Right) 10/13/2020 70 0.749 -1.6 -0.007(-0.9%)# -0.091(-10.9%) 08/22/2018 68 0.841 -0.8 0.085(11.2%)# 0.121(16.9%)* 08/16/2016 66 0.719 -1.8 -0.037(-4.9%)# -0.009(-1.2%) 07/26/2014 64 0.728 -1.8 -0.028(-3.7%)# -0.028(-3.7%)# 07/19/2011 61 0.756 -1.5 *Denotes significance at 95% confidence level, LSC for AP Spine = 0.022 g/cm2, LSC for Total Hip = 0.027 g/cm2 Clinical Information Provided by Patient: Is being treated for osteoporosis Has used the following medications: Actonel (i.e. risedronate), Fosamax (i.e. alendronate), Vitamin D, Calcium Has the following medical conditions: Hysterectomy Patient maximum height was 59 Menopause Age: 47 Does not regularly consume dairy products Onset of menses at age 12 Number of children 2
--- NOTE | ~2020-10-13 | MM_ITS ---
EXAMINATION: MM screening melanie BI w josse HISTORY: Screening TECHNIQUE: Craniocaudal and mediolateral oblique 3-D tomosynthesis images were obtained and synthetic 2-D images were generated. CAD analysis was submitted and interpreted. COMPARISON: Comparison to multiple prior studies sequentially, with oldest reviewed study dated 08/14. BREAST PARENCHYMAL COMPOSITION: The breasts are heterogeneously dense, which may obscure small masses . FINDINGS: There is no evidence of suspicious mass, calcification, or architectural distortion to sugg est malignancy in either breast. There has been no suspicious interval change. IMPRESSION: 1. No mammographic evidence of malignancy. 2. Recommend routine screening mammography in one year. BI-RADS Category 1: Negative Reviewed, dictated and finalized at location A.
== END 2020-10-13 08:41 | disposition home or self-care (01) ==
LOC: ANHIMG 08:43
PROVIDERS: PCP Emergency Medicine; Visit Provider Emergency Medicine
DX: Z12.31 Encounter for screening mammogram for malignant neoplasm of breast (principal); Z78.0 Asymptomatic menopausal state; M85.88 Other specified disorders of bone density and structure, other site; M85.852 Other specified disorders of bone density and structure, left thigh; M85.851 Other specified disorders of bone density and structure, right thigh; M81.0 Age-related osteoporosis without current pathological fracture
CPT/HCPCS: 77063; 77067; 77080

== ENCOUNTER 2020-12-08 13:22 | Inpatient (IN) | payer MEDICARE, OTHER, SELFPAY ==
[2020-12-08] VITALS (7 sets, daily range): BP systolic 136–147; BP diastolic 63–99; PULSE 63–86; RESP 14–18; TEMP 36.7–37; O2SAT 99–100; BMI 18.8
--- NOTE | ~2020-12-08 | US_ITS ---
EXAMINATION: US abdomen limited DATE: 12/08/2020 15:53 INDICATION: Abdominal pain. TECHNIQUE: Multiple grayscale and Doppler ultrasound images of the abdomen were obtained. COMPARISON: MRI 05/30/2020 FINDINGS: The visualized portions of the head, body, and tail of the pancreas are normal. There are c ysts in the liver measuring up to 2.5 cm. No liver surface nodularity. The gallbladder is normal in s ize. No gallstones or gallbladder wall thickening. There is no sonographic Sue sign. The common du ct is normal and measures 3 mm. IMPRESSION: 1. No etiology for the patient's symptoms. Reviewed, dictated and finalized at location A.
--- NOTE | ~2020-12-08 | XR_ITS ---
EXAMINATION: XR chest 2V DATE: 12/08/2020 16:03 INDICATION: Hematemesis. Vomiting with facet reflux. Central chest pain. TECHNIQUE: PA and lateral views of the chest were obtained. COMPARISON: Chest radiograph dated 12/14/[address] dated 05/23/2020 FINDINGS: The lungs remain clear with no focal airspace opacities, pulmonary edema, pleural effusion or pneumot horax. The cardiomediastinal silhouette is normal. Unchanged chronic mild anterior wedging of the T11 and L1 vertebral bodies. IMPRESSION: 1. No acute cardiopulmonary disease. Reviewed, dictated and finalized at location A.
--- NOTE | ~2020-12-08 | CT_ITS ---
EXAMINATION: CT abdomen pelvis w con DATE: 12/08/2020 15:59 INDICATION: Low abdominal pain. Constipation. TECHNIQUE: Computed tomography (CT) of the abdomen and pelvis was performed with 100 mL Omnipaque 350 intravenous contrast. Automated exposure control and iterative reconstruction technique were employe d. The dose-length product was 159.46 mGy-cm. COMPARISON: CT abdomen and pelvis 05/23/2020 FINDINGS: The visualized portions of the lung bases demonstrate mild atelectasis in the left. No pleu ral effusion. The heart size is normal. No pericardial effusion. There are cysts in the liver measuri ng up to 4.2 cm. There is a 3.1 cm mass in right hepatic lobe with interrupted peripheral puddling of contrast, consistent with a hemangioma. The gallbladder, spleen, and adrenal glands are normal. Ther e is fat stranding around the pancreas, consistent with acute interstitial pancreatitis. There are cy sts in the kidneys are negative to 5 mm on the right. There is wall thickening of the transverse colo n. There is wall thickening of the gastric antrum. The appendix is normal. There is a small volume of ascites. There are no pathologically enlarged lymph nodes. There are chronic bilateral L3 pars defec ts. There is a chronic compression fracture of L1. There is severe degenerative disease at L3-L4. IMPRESSION: 1. Acute interstitial pancreatitis. 2. Wall thickening of the transverse colon and gastric antrum, consistent with inflammation, likely s econdary to pancreatitis. 3. Small volume of ascites. Reviewed, dictated and finalized at location A. IMPRESSION: 1. Acute interstitial pancreatitis. 2. Wall thickening of the transverse colon and gastric antrum, consistent with inflammation, likely secondary to pancreatitis. 3. Small volume of ascites.
--- NOTE | ~2020-12-08 | MR_ITS ---
EXAMINATION: MR MRCP wo/w con/w 3D wo ind DATE: 12/09/2020 09:36 INDICATION: Pancreatitis. TECHNIQUE: Magnetic resonance imaging (MRI) of the abdomen was performed without and with 8 mL MultiH ance intravenous contrast. Sequences included coronal T2-weighted FS FSE, coronal T2-weighted FSE, ax ial T1-weighted LAVA, coronal FS FIESTA, axial dual-echo T1-weighted SPGR, coronal lava-FLEX, sagitta l T2-weighted FSE, axial T2-weighted FSE, and axial DWI. Thick-slab T2-weighted FSE images were obtai gerri for magnetic resonance cholangiopancreatography (MRCP). Maximum intensity projection 3-D reconstr uctions of the volumetric data were created by the technologist. Postcontrast sequences included jacki nal LAVA-flex and time course of axial T1-weighted LAVA. COMPARISON: Abdomen MRI 05/30/2020, CT abdomen and pelvis 12/08/2020 FINDINGS: ABDOMEN MRI: There are cysts in the liver measuring up to 4.3 cm. There is a 3.1 cm mass in right hep atic lobe with interrupted peripheral puddling of contrast, consistent with a hemangioma. The spleen and adrenal glands are normal. There are cysts in the kidneys measuring up to 5 mm on the right. The gallbladder is normal in size. There is edema in the peritoneum and retroperitoneum including around the pancreas, consistent with acute interstitial pancreatitis. There is wall thickening of the gastri c antrum and transverse colon. There is a small volume of ascites. ABDOMEN MRCP: The common duct is normal in size and measures 6 mm. No choledocholithiasis is identifi ed. IMPRESSION: 1. Acute interstitial pancreatitis. No choledocholithiasis. 2. Wall thickening of the transverse colon and gastric antrum, consistent with inflammation, likely s econdary to pancreatitis. 3. Small volume of ascites. Reviewed, dictated and finalized at location A. IMPRESSION: 1. Acute interstitial pancreatitis. No choledocholithiasis. 2. Wall thickening of the transverse colon and gastric antrum, consistent with inflammation, likely secondary to pancreatitis. 3. Small volume of ascites.
[2020-12-08 14:27] LABS: Basophils Percent Auto 0.4 % (0.2-1.2); Eosinophils Percent Auto 0.4 % (0-4.4); Hematocrit 43.3 % (37.0-47.0); Hemoglobin 14.1 g/dL (12.0-15.0); Immature Granulocyte Absolute 0.06 K/mm3 (0.00-0.031); Immature Granulocyte Percent A 0.6 % (0-0.5); Lymphocytes Absolute Auto 1.18 K/mm3 (0.9-3.2); Lymphocytes Percent Auto 10.9 % (18.3-44.2); Mean Corpuscular HGB Conc 32.6 g/dl (32-36); Mean Corpuscular Hemoglobin 29.8 pg (26-34); Mean Corpuscular Volume 91.5 fl (80-100); Mean Platelet Volume 10.2 fl (7.4-10.4); Monocytes Absolute Auto 0.6 K/mm3 (0.1-0.6); Monocytes Percent Auto 5.7 % (2.6-8.5); Neutrophils Absolute Auto 8.9 K/mm3 (1.3-6.7); Platelet Count Result 252 k/mm3 (150-375); Red Blood Count 4.73 M/mm3 (4.2-5.4); Red Cell Distribution Width 14.9 % (11.5-14.5); White Blood Count 10.8 K/mm3 (4.5-10.0)
--- NOTE | 2020-12-08 14:37 | ED.GENADULT ---
HPI - General Adult General Chief complaint: Abdominal Pain Stated complaint: abd pain Time Seen by Provider: 12/08/20 14:37 Source: patient and family Mode of arrival: ambulatory Limitations: no limitations History of Present Illness HPI narrative: Patient is a 70-year-old female with a history of acid reflux who presents for evaluation of epigastric abdominal pain. Pain is been constant over the past week and a half since she stopped taking her antiacid. Patient typically Follows with Dr. Michaels, states that she ran out of her antacid medication and since that time has had almost constant upper abdominal pain. Pain is described as sharp, cramping in nature. No radiation to the back. She does report a burning sensation in her chest and throat. She denies jaw pain, shoulder pain, diaphoresis. She does report nausea. She had an episode of emesis today that had some blood streaking in it which caused her to worry and wanted to seek care in the emergency department. She reports abdominal bloating and constipation. She does have history of abdominal hysterectomy. No history of bowel obstruction. Related Data Home Medications Medication Instructions Recorded Confirmed omeprazole magnesium [Prilosec OTC] 20 mg PO DAILY 05/23/20 05/23/20 cholecalciferol (vitamin D3) 25 1,000 unit PO DAILY tablet 06/11/20 mcg (1,000 unit) tablet Allergies Allergy/AdvReac Type Severity Reaction Status Date / Time caffeine AdvReac Severe VERY Verified 05/23/20 17:10 SENSITIVE, HAS RAPID HEART BEAT food Allergy Other Uncoded 05/23/20 17:10 Review of Systems Review of Systems: Narrative: CONSTITUTIONAL: Denies fever, chills, or sweats. EYES: Denies visual changes, redness, or discharge. ENT: Denies rhinorrhea, congestion, sore throat, or otalgia. CARDIOVASCULAR: Denies chest pain, palpitations, or edema. RESPIRATORY: Denies cough or dyspnea. GASTROINTESTINAL: Reports abdominal pain, nausea, episode of emesis earlier today, reports constipation GENITOURINARY: Denies dysuria or hematuria. SKIN: Denies rash or itching. MUSCULOSKELETAL: Denies back pain, joint pain, or myalgia. NEUROLOGIC: Denies headache, numbness, or weakness. [facility] Past Medical History Medical History Anxiety GERD (gastroesophageal reflux disease) Vitamin D deficiency disease Surgical History Surgical History H/O tubal ligation Family History Family History Mother Family history of lung cancer, Onset Age: 76 Sibling Diabetes mellitus Family history of cardiovascular disease Family history of malignant neoplasm of breast in first degree relative, Onset Age: 64 Father Hypertension Social History Social History Smoking packs per day: 1 Smoking cigarettes per day: 20.0 Years smoked: 10 Smoking pack-years: 10.00 Smoking status: Former smoker Smoking end date: 07/04/96 Alcohol intake: never Gender identity (if verbalized by the patient): Female Spiritual care concerns: No Exam Narrative: Exam Narrative: GENERAL: Awake, alert, conversant HEAD: Normocephalic, atraumatic. EYES: PERRLA and EOMI. ENT: Nares clear, no rhinorrhea or epistaxis. Mucous membranes moist. NECK: Supple. CHEST: No respiratory distress, breathing even and non labored HEART: Regular rate, sinus rhythm ABDOMEN: Mild distention, tenderness throughout, mostly periumbilical and epigastric tenderness EXTREMITIES: Normal range of motion. No edema. SKIN: Warm, dry, no rash. NEURO:No focal deficits. Alert and oriented x3 Course Vital Signs Vital signs: Vital Signs Temperature 37.0 C 12/08/20 13:28 Pulse Rate 74 12/08/20 13:28 Respiratory Rate 18 12/08/20 13:28 Blood Pressure 143/99 H 12/08/20 13:28
[2020-12-08 14:39] LABS: Add Urine Microscopic? YES; Appearance Urine Cloudy (Clear); Bilirubin Urine Negative (Negative); Blood Urine Negative (Negative); Calcium Oxalate Crystals Urine Present /hpf; Color Urine Yellow (Yellow); Glucose Urine UA Negative (Negative); Ketones Urine 1+ mg/dL (Negative); Leukocyte Esterase Ur Negative LEU/UL (Negative); Mucus Urine Rare /lpf; Nitrate Urine Negative (Negative); Protein Urine 2+ mg/dL (Negative); Specific Grav Ur 1.021 (1.001-1.035); Urobilinogen Urine Negative mg/dL (<2.0); WBC Urine 0-3 /hpf
[2020-12-08 14:41] LABS: Alanine Aminotransferase 38 U/L (4-35); Albumin Level 4.2 g/dL (3.5-5.1); Alkaline Phosphatase 61 U/L (38-126); Anion Gap 8 mmol/L (8-16); Aspartate Amino Transferase 92 U/L (14-36); Bilirubin,Total 0.5 mg/dL (0.2-1.3); Blood Urea Nitrogen 15 mg/dL (7-17); Calcium 9.2 mg/dL (8.4-10.2); Carbon Dioxide 27 mmol/L (22-30); Chloride 102 mmol/L (98-107); Estimated Glomerular Filt Rate > 60; Glucose 117 mg/dL (65-105); Potassium 3.9 mmol/L (3.4-5.0); Sodium 137 mmol/L (137-145)
--- NOTE | 2020-12-08 15:15 | ECG_ITS ---
Measurements Intervals [place] Rate: 80 P: 76 RI: 168 QRS: -58 QRSD: 94 T: -43 QT: 370 QTc: 427 Interpretive Statements SINUS RHYTHM INCOMPLETE RIGHT BUNDLE BRANCH BLOCK LOW QRS VOLTAGE IN PRECORDIAL LEADS LEFT ANTERIOR FASCICULAR BLOCK BORDERLINE ST-T WAVE ABNORMALITY- ANTEROLAT/INF LEADS BASELINE ARTIFACT- I, II, III, AVR, AVL, AVF ABNORMAL ECG Electronically Signed On 12-08-2020 21:08:53 CDT by Bertin Reynolds D.O.
[2020-12-08 15:32] LABS: Lipase 17301 U/L (23-300)
[2020-12-08] MEDS: ONDANSETRON INJ 4 MG/2 ML VIAL IV PUSH (16:11)
[2020-12-08] MEDS: MORPHINE SULFATE (*CRX) 4 MG/ML INJ IV PUSH (16:11)
[2020-12-08] MEDS: SODIUM CHLORIDE 0.9% IV 1,000 ML 999 ML IV CONT (16:11)
[2020-12-08] MEDS: FAMOTIDINE 20 MG/2 ML VIAL IV PUSH (16:32)
[2020-12-08 17:04] LABS: Troponin I < 0.012 ng/mL (0.000-0.034)
--- NOTE | 2020-12-08 21:00 | ADMGEN ---
This patient, Blanka Osborn, was admitted to Medical Room 347-01. Patient/family oriented to hospital policies and general routines including ID bracelet, bed and alarms, visiting hours, pain management, procedures, bathroom and other care routines, personal items, smoking policy, room service/diet, and visiting hours. Information on how to activate the Rapid Response Team has been discussed. Patient/Family are encouraged to report perceived risks to care and to ask questions if they do not understand what they are told or what they should do.
[2020-12-08] MEDS: SODIUM CHLORIDE 0.9% IV 1,000 ML 125 ML IV CONT (22:31)
--- NOTE | 2020-12-08 23:27 | PM.IMHP ---
H&P: HPI History of Present Illness Date/Time: 12/08/20 23:27Christina is a 70-year-old female patient who has a past medical history of a and GERD. The patient stated that she has seen a GI specialist here in the past. She has been taking omeprazole for 6 months and just recently ran out of her medication as she has completed a 6 month course. The patient still continues to complain of acid reflux. It looks like Dr. Gil did colonoscopy on 11/04/2017 and she had a polyp removed at that time. However the patient stated she has not been scoped since then. The patient stated that the abdominal pain that she had today is different from her acid reflux. The patient stated she has had abdominal pain That comes and goes. There is no relation to food or activity. The patient stated it was more of a crampy feeling. She had no emesis or diarrhea. The patient has some discomfort in her epigastric pain today. The patient was seen by Dr. alvarado in the past and therefore Dr. alvarado was consulted. No jaw pain or chest pain. There was a abnormal EKG and cardiology was also consulted as well. Her lipase was noted to be 17,301. the patient denies having any cholesterol problems or any alcohol history. The patient stated she does not drink any alcohol at all. Troponin was negative. Abdominal ultrasound shows no etiology for patient's symptoms. Abdominal pelvis CT shows acute interstitial pancreatitis. Wall thickening of the transverse colon and gastric atrum, consistent with inflammation, likely secondary to pancreatitis. Small volume of ascites. Chest x-ray shows no acute coronary pulmonary disease. EKG was showing sinus rhythm with some nonspecific ST changes inverted T-waves in V4, V5 V6 lead to 3 and borderline elevation aVL. Compared to previous EKG there changes present. This is per ED physician documentation. The patient was started on IV fluids Zosyn morphine and Pepcid. The patient is being admitted to inpatient services on the date of service 12/08/2020. Chief Complaint: Abdominal pain Review of Systems Review of Systems: All systems reviewed & are unremarkable except as noted in HPI and below Constitutional: Constitutional: Reports as per HPI and Reports no additional constitutional complaints Eyes: Eyes: Reports as per HPI and Reports no additional eye complaints ENT: Reports system reviewed and no additional complaints, except as documented and Reports Normal hearing present Cardiovascular: Cardiovascular: Reports no additional cardiovascular complaints Respiratory: Respiratory: Reports no additional respiratory complaints and Reports no additional respiratory complaints Gastrointestinal: Gastrointestinal: Reports as per HPI and Reports no additional gastrointestinal complaints Musculoskeletal: Musculoskeletal: Reports no additional musculoskeletal complaints Integumentary/Breasts: Skin/Breast: Reports system reviewed and no additional complaints, except as docu and Reports as per HPI Neurologic: Reports system reviewed and no additional complaints, except as documented, Reports as per HPI and Reports Normal hearing present Psychiatric: Psychiatric: Reports no additional psychiatric complaints and Reports as per HPI Endocrine: Endocrine: Reports no additional endocrine complaints Hematologic/Lymphatic: Hematologic/Lymphatic: Reports no additional hematologic/lymphatic complaints Allergic/Immunologic: Allergic/Immunologic: Reports no additional allergic/immunologic complaints [facility] Past Medical History Medical History (Updated 12/08/20 @ 23:36 by Shyla Choi NP) Anxiety Fever Food additives allergy status GERD (gastroesophageal reflux disease) Headache Macular edema left eye Multiple food allergies Other screening mammogram Palpitations Throat pain Trigger finger of left thumb Vitamin D deficiency disease Surgical History Surgical History (Updated 12/08/20 @ 23:37 by Shyla Choi NP) H/O cataract
[2020-12-09 05:56] LABS: Basophils Absolute Auto 0.1 K/mm3 (0.0-0.1); Basophils Percent Auto 0.7 % (0.2-1.2); Eosinophils Absolute Auto 0.1 K/mm3 (0-0.3); Hematocrit 40.8 % (37.0-47.0); Hemoglobin 13.3 g/dL (12.0-15.0); Immature Granulocyte Absolute 0.02 K/mm3 (0.00-0.031); Immature Granulocyte Percent A 0.2 % (0-0.5); Lymphocytes Absolute Auto 2.38 K/mm3 (0.9-3.2); Lymphocytes Percent Auto 29.6 % (18.3-44.2); Mean Corpuscular HGB Conc 32.6 g/dl (32-36); Mean Corpuscular Hemoglobin 29.3 pg (26-34); Mean Corpuscular Volume 89.9 fl (80-100); Mean Platelet Volume 10.4 fl (7.4-10.4); Monocytes Absolute Auto 0.5 K/mm3 (0.1-0.6); Monocytes Percent Auto 6.2 % (2.6-8.5); Neutrophils Percent Auto 62.3 % (45.5-73.1); Platelet Count Result 234 k/mm3 (150-375); Red Blood Count 4.54 M/mm3 (4.2-5.4)
[2020-12-09 06:06] LABS: Alanine Aminotransferase 27 U/L (4-35); Albumin Level 3.8 g/dL (3.5-5.1); Alkaline Phosphatase 53 U/L (38-126); Anion Gap 7 mmol/L (8-16); Aspartate Amino Transferase 42 U/L (14-36); Bilirubin,Total 0.7 mg/dL (0.2-1.3); Blood Urea Nitrogen 11 mg/dL (7-17); Calcium 8.3 mg/dL (8.4-10.2); Carbon Dioxide 25 mmol/L (22-30); Chloride 110 mmol/L (98-107); Cholesterol 216 mg/dL (0-200); Estimated Glomerular Filt Rate > 60; Glucose 81 mg/dL (65-105); HDL Direct 78 mg/dL; Lipase 1858 U/L (23-300); Sodium 142 mmol/L (137-145); Triglycerides 72 mg/dL (<150)
[2020-12-09 06:16] LABS: LDL Cholesterol Direct 95 mg/dL
[2020-12-09 06:20] VITALS: BP 118/68; PULSE 101; RESP 16; TEMP 36.8; O2SAT 95
[2020-12-09] MEDS: SODIUM CHLORIDE 0.9% IV 1,000 ML 125 ML IV CONT (06:31)
[2020-12-09] MEDS: FAMOTIDINE 20 MG/2 ML VIAL IV PUSH ×2 (08:29→20:44)
--- NOTE | 2020-12-09 09:00 | PM.CNCAR ---
Assessment and Plan Assessment and plan (1) Abnormal EKG: Code(s): R94.31 - Abnormal electrocardiogram [ECG] [EKG] <DEVON Sanchez - Last Filed: 12/09/20 17:45> Status: Acute <DEVON Sanchez - Last Filed: 12/09/20 17:45> Assessment and Plan: EKG upon admission showed nonspecific ST abnormalities - somewhat worse when compared to EKG from December 2019. Initial troponin was negative She is not currently experiencing any chest pain and her abdominal pain is improving. Will obtain troponin with a.m. labs and repeat a 12 lead EKG. Will obtain echocardiogram <DEVON Sanchez - Last Filed: 12/09/20 17:45> Additional Plan Attending addendum: I have personally seen and examined this patient at bedside. Agree with above documented plan of care as outlined. Patient is a pleasant 70-year-old female with a history of GERD presented with worsening abdominal pain and acid reflux symptoms with complaint of brain discomfort primarily noted with meals slightly improved with omeprazole which she took for 6 months then discontinued 1 week prior to admission. day prior to admission she noted a burning heaviness sensation typical of her GERD symptoms with a burning discomfort in her throat not worse with activity, position. This has resolved without recurrence. Initial troponins were negative. EKG revealed subtle nonspecific ST abnormalities slightly worse compared to prior tracings. She denies exertional dyspnea, chest pain. She has no history of CAD, hypertension, CHF. She had a treadmill stress EKG study performed 2016 she exercised over 7 minutes with a [place] treadmill score +7 no ischemic EKG changes or symptoms. 2D echo at that time was also unremarkable without significant valvular pathology, preserved EF of 71%. She is feeling much better overall as she presented with marked elevation in amylase and lipase consistent with idiopathic pancreatitis. MRCP revealed acute interstitial pancreatitis, etiology remains unclear. She has no complaints at this time. Exam: Thin female no apparent distress alert and oriented x3 breathing comfortably speaking full sentences. Exam nonfocal. Neck is supple no JVD or carotid bruits. Lungs clear to auscultation bilaterally. Cardiac exam regular rate and rhythm normal S1-S2, physiologic split S2 with respirations, grade 1/6 early systolic murmur. Abdominal exam soft nontender nondistended. Positive bowel sounds throughout. Extremities no edema clubbing or cyanosis neurologic cranial nerves grossly intact psychiatric mood, appropriate musculoskeletal muscle strength and tone intact. impression/plan of care: Atypical chest pain most likely secondary to GERD negative troponin, abnormal EKG with further subtle nonspecific changes. GERD symptoms resolved, pancreatitis improving with supportive therapy. Check troponin in a.m. with morning labs. Repeat 12 lead EKG tomorrow morning. 2D echocardiogram to assess LV function, wall motion. If no recurrent symptoms and above workup negative may follow up with her PCP. If recurrent chest discomfort thought not to related to GERD and or not responsive to PPI or H2 blockers consider outpatient ischemic evaluation and follow-up with us in the office. patient verbalized understanding and agreed with the plan of care. All questions answered to her satisfaction. <Bertin Rojo MD - Last Filed: 12/09/20 17:02> History of Present Illness History of Present Illness Consult date/time: 12/09/20 09:00 This is 70-year-old female with a medical history of GERD diagnosed in 2019 and anxiety. She comes to the hospital with complaints abdominal pain. She states that she has had acid reflux for some time and was taking a six-month course of omeprazole that ended about 1 week ago. She states that this is when she began noticing upper stomach pain. She describes the pain as a general discomfort, bloating and
--- NOTE | 2020-12-09 12:27 | WPDGICN ---
Assessment and Plan Assessment and plan (1) Acute pancreatitis: Qualifiers: Acute pancreatitis complication: no infection or necrosis Pancreatitis type: other Qualified Code(s): K85.80 - Other acute pancreatitis without necrosis or infection Code(s): K85.90 - Acute pancreatitis without necrosis or infection, unspecified Status: Acute Assessment and Plan: Patient with pancreatitis elevated by elevated lipase, patient also with interstitial pancreatitis evident on CT scan. This appears to be idiopathic. Patient has no alcohol use, and no evidence for gallstone. This is unlikely to be related to current medication use. Enzymes have already begun to increase patient be has begun to feel better with an increased appetite. Plan is to slowly implemented diet to begin with liquids and advance slowly to a low-fat diet. Pain control will continue we will continue to monitor her conservatively. (2) GERD (gastroesophageal reflux disease): Qualifiers: Esophagitis presence: without esophagitis Qualified Code(s): K21.9 - Gastro-esophageal reflux disease without esophagitis Code(s): K21.9 - Gastro-esophageal reflux disease without esophagitis Status: Acute Assessment and Plan: Patient with a history of GE reflux disease EGD last fall was unremarkable. Patient now on omeprazole but feels that this may be making her constipated. Will try pantoprazole or Pepcid in the interim. (3) History of colon polyps: Code(s): Z86.010 - Personal history of colonic polyps Status: Acute Assessment and Plan: Patient has a history of colon polyps by endoscopy in 2018. Plan is for follow-up colonoscopy anticipate this to be done 2022. (4) Liver mass: Code(s): R16.0 - Hepatomegaly, not elsewhere classified Status: Acute Assessment and Plan: CT scan performed in the emergency room suggest hemangioma of the liver. This should not be biopsied. Likely incidental no additional workup felt warranted at this time. GI Consult Note Consult date/time: 12/09/20 12:27 HPI: Blanka Osborn is a 70 year old female Seen in evaluation at the request of the hospitalist. Patient reports 3-4 day history abdominal pain predominantly the epigastric area. Pain has intensified along with poor appetite prompting her to come to the emergency room yesterday. CT scan of the abdomen was performed consistent with pancreatitis. Marked elevation of serum lipase was identified. Ultrasound revealed no evidence of gallstones. Patient denies alcohol intake. Patient has never had pancreatitis before. She reports no recent change in medications. No dietary indiscretion. Her family history is noncontributory. Patient does report prior colonoscopy that showed colon polyps 2018. She has been treated for GE reflux disease. Prior EGD suggested this with no other pathology performed last year. She has done well on omeprazole since time. She states today the pain is improved quite a bit since yesterday. her appetite is beginning to improve. Review of Systems Review of Systems: All systems reviewed & are unremarkable except as noted in HPI and below PMFSH Past Medical History Medical History (Updated 12/09/20 @ 12:30 by Lakhwinder Michaels MD) Anxiety Fever Food additives allergy status GERD (gastroesophageal reflux disease) Headache Macular edema left eye Multiple food allergies Other screening mammogram Palpitations Throat pain Trigger finger of left thumb Vitamin D deficiency disease Surgical History Surgical History (Updated 12/08/20 @ 23:37 by Shyla Choi NP) H/O cataract removal with insertion of prosthetic lens left eye H/O colonoscopy with polypectomy H/O: hysterectomy Family History Family History Mother Family history of lung cancer, Onset Age: 76 Sibling Diabetes mellitus Family hi
[2020-12-09 14:00] VITALS: BP 120/67; PULSE 92; RESP 18; TEMP 36.8; O2SAT 95
--- NOTE | 2020-12-09 14:15 | PM.IMPN ---
Progress Note: A&P Assessment and Plan (1) Acute pancreatitis: Qualifiers: Acute pancreatitis complication: no infection or necrosis Pancreatitis type: other Qualified Code(s): K85.80 - Other acute pancreatitis without necrosis or infection Code(s): K85.90 - Acute pancreatitis without necrosis or infection, unspecified Status: Acute Assessment and Plan: Differential includes idiopathic pancreatitis verses pancreatitis from her omeprazole -lipase is trending down and the pain is improving -will start clear liquids tonight -MRCP does not show any stones to be the cause. Patient does not drink alcohol -will decrease IV fluids and increase diet as tolerated -GI consulted, I appreciate their additional recommendations (2) Abnormal EKG: Code(s): R94.31 - Abnormal electrocardiogram [ECG] [EKG] Status: Acute Assessment and Plan: Noted by the ER physician - Cardiology has been consulted. -The patient does not have any chest pain. (3) GERD (gastroesophageal reflux disease): Qualifiers: Esophagitis presence: without esophagitis Qualified Code(s): K21.9 - Gastro-esophageal reflux disease without esophagitis Code(s): K21.9 - Gastro-esophageal reflux disease without esophagitis Status: Acute Assessment and Plan: Continue Pepcid Time Spent With Patient Time with patient: 25 - 35 minutes Subjective Date/time seen: 12/09/20 14:15 Interval history: Pt is a 70-year-old female here for pancreatitis. Patient was seen today and states her pain is much better. She is now having pain in her lower quadrants but thinks it has improved. She is ready to try clear liquids. She has not been passing gas or having bowel movements. She feels a bit constipated. She denies nausea, vomiting, fevers, chills, chest pain, shortness of breath, cough, or leg swelling. She does not drink alcohol. Review of Systems Review of Systems: All systems reviewed & are unremarkable except as noted in HPI and below Exam Narrative: Exam Narrative: General: Well developed well nourished patient in NAD HEENT: normocephalic Neck: supple Neuro: Alert and oriented x4 CV:RRR Resp:CTA Abd: Soft, non distended. Pain to palpation to the umbilicus area. No pain to the epigastric area. Positive bowel sounds Extremities: No swelling, erythema, or pain to palpation. Objective Data Vital Signs Vital Signs: Vital Signs - 24 hr 06/07/21 16:16 12/08/20 17:18 12/08/20 18:59 Temperature Pulse Rate 86 78 65 Respiratory Rate 14 18 18 Blood Pressure 145/92 H 147/88 H 137/81 Pulse Oximetry 99 99 99 12/08/20 19:45 12/08/20 20:45 12/08/20 22:42 Temperature 98.1 F Pulse Rate 63 63 77 Respiratory Rate 16 18 14 Blood Pressure 145/71 H 137/63 136/72 Pulse Oximetry 99 99 100 12/09/20 06:20 Temperature 98.2 F Pulse Rate 101 H Respiratory Rate 16 Blood Pressure 118/68 Pulse Oximetry 95 Intake/Output Intake/Output: Intake & Output 12/06/20 12/07/20 12/08/20 12/09/20 23:59 23:59 23:59 23:59 Intake Total 1000 1000 Output Total 600 Balance 1000 400 Meds/Results Medications: Active Medications Generic Name Dose Route Start Last Admin Trade Name Freq PRN Reason Stop Dose Admin Acetaminophen 650 mg 12/09/20 14:10 Acetaminophen 325 Mg Tablet PO Q6H PRN Mild Pain (1-3) or Fever Hydrocodone Bitart/Acetaminophen 1 tab 12/09/20 14:10 Hydrocodone/Acetaminophen (*Crx) 5-325 Mg Tablet PO Q6H PRN Pain Rated 4-6 Famotidine 20 mg 12/09/20 09:00 12/09/20 08:29 Famotidine 20 Mg/2 Ml Vial IV PUSH 20 mg Q12HR SAMUEL Administration Sodium Chloride 1,000 mls @ 75 mls/hr 12/08/20 16:40 12/09/20 06:31 Normal Saline Iv IV CONT 125 mls/hr .[id number] SAMUEL Administration Morphine Sulfate 2 mg 12/09/20 14:12 Morphine Sulfate (*Crx) 4 Mg/Ml Inj IV PUSH Q2H PRN Pain Rated 7-10 Ondansetron H
[2020-12-09] MEDS: SODIUM CHLORIDE 0.9% IV 1,000 ML 75 ML IV CONT (16:44)
[2020-12-09 20:39] VITALS: BP 134/84; PULSE 71; RESP 18; TEMP 36.6; O2SAT 98
[2020-12-10] MEDS: ACETAMINOPHEN 325 MG TABLET 650 MG PO ×2 (03:37→19:29)
[2020-12-10 05:45] VITALS: BP 107/63; PULSE 61; RESP 16; TEMP 36.4; O2SAT 98
[2020-12-10 06:01] LABS: Alanine Aminotransferase 17 U/L (4-35); Albumin Level 2.9 g/dL (3.5-5.1); Alkaline Phosphatase 40 U/L (38-126); Aspartate Amino Transferase 29 U/L (14-36); Bilirubin,Total 0.8 mg/dL (0.2-1.3); Lipase 233 U/L (23-300)
[2020-12-10 06:09] LABS: Troponin I < 0.012 ng/mL (0.000-0.034)
--- NOTE | 2020-12-10 07:00 | ECG_ITS ---
Measurements Intervals [place] Rate: 70 P: 69 [place]: 161 QRS: 2 QRSD: 91 T: 49 QT: 395 QTc: 428 Interpretive Statements SINUS RHYTHM LOW QRS VOLTAGE IN PRECORDIAL LEADS INCOMPLETE RIGHT BUNDLE BRANCH BLOCK BORDERLINE T WAVE ABNORMALITY- ANTEROLAT/INF LEADS BORDERLINE ECG Electronically Signed On 12-10-2020 8:17:43 CDT by Bertin Reynolds D.O.
[2020-12-10] MEDS: SODIUM CHLORIDE 0.9% IV 1,000 ML 75 ML IV CONT (07:24)
--- NOTE | 2020-12-10 08:04 | WPDGIPROGNO ---
Progress Note: A&P Assessment and Plan (1) Acute pancreatitis: Qualifiers: Acute pancreatitis complication: no infection or necrosis Pancreatitis type: other Qualified Code(s): K85.80 - Other acute pancreatitis without necrosis or infection Code(s): K85.90 - Acute pancreatitis without necrosis or infection, unspecified Status: Acute Assessment and Plan: Patient has acute pancreatitis. Lipase has returned to normal. Most likely this is idiopathic. I do not believe it is related to omeprazlle. (2) History of colon polyps: Code(s): Z86.010 - Personal history of colonic polyps Status: Acute Assessment and Plan: Because of history of colon polyps follow-up colonoscopy at 5 year intervals advised. Patient has recent colonoscopy performed (3) Abdominal pain: Qualifiers: Abdominal location: generalized Qualified Code(s): R10.84 - Generalized abdominal pain Code(s): R10.9 - Unspecified abdominal pain Status: Acute Assessment and Plan: abdominal pain initially from pancreatitis may have a component related to her constipation. (4) Constipation: Code(s): K59.00 - Constipation, unspecified Status: Acute Assessment and Plan: Constipation noted etiology unclear. She relates that to omeprazole for this reason meds will be changed Pepcid. I doubt if omeprazole as he explanation however. Continue she has not tried laxatives. Suggest milk a magnesia or MiraLax on a regular basis. Subjective Date/time seen: 12/10/20 08:04 Patient alert this morning. Complains of constipation. She no longer has upper abdominal pain. She states she has been constipated for several months since starting omeprazole. Now on Pepcid intravenously. Review of Systems Review of Systems: All systems reviewed & are unremarkable except as noted in HPI and below Exam Narrative: Exam Narrative: Physical exam reveals patient be alert. Afebrile. Anicteric. Vital signs stable. Lungs are clear. Heart without murmur. Abdomen bowel sounds present soft she notices discomfort in the low abdomen. Objective Data Vital Signs Vital Signs: Vital Signs - 24 hr 12/09/20 14:00 12/09/20 20:39 12/10/20 05:45 Temperature 98.2 F 98 F 97.5 F L Pulse Rate 92 71 61 Respiratory Rate 18 18 16 Blood Pressure 120/67 134/84 107/63 Pulse Oximetry 95 98 98 Intake/Output Intake/Output: Intake & Output 12/07/20 12/08/20 12/09/20 12/10/20 23:59 23:59 23:59 23:59 Intake Total 1000 2700 1400 Output Total 1000 600 Balance 1000 1700 800 Meds/Results Medications: Active Medications Generic Name Dose Route Start Last Admin Trade Name Freq PRN Reason Stop Dose Admin Acetaminophen 650 mg 12/09/20 14:10 12/10/20 03:37 Acetaminophen 325 Mg Tablet PO 650 mg Q6H PRN Administration Mild Pain (1-3) or Fever Hydrocodone Bitart/Acetaminophen 1 tab 12/09/20 14:10 Hydrocodone/Acetaminophen (*Crx) 5-325 Mg Tablet PO Q6H PRN Pain Rated 4-6 Famotidine 20 mg 12/09/20 09:00 12/09/20 20:44 Famotidine 20 Mg/2 Ml Vial IV PUSH 20 mg Q12HR SAMUEL Administration Sodium Chloride 1,000 mls @ 75 mls/hr 12/08/20 16:40 12/10/20 07:24 Normal Saline Iv IV CONT 75 mls/hr .[id number] SAMUEL Administration Morphine Sulfate 2 mg 12/09/20 14:12 Morphine Sulfate (*Crx) 4 Mg/Ml Inj IV PUSH Q2H PRN Pain Rated 7-10 Ondansetron HCl 4 mg 12/08/20 16:37 Ondansetron Inj 4 Mg/2 Ml Vial IV PUSH Q4H PRN Nausea Radiology Results: ITS Impressions Abdomen Ultrasound 12/08/20 15:56 IMPRESSION: 1. No etiology for the patient's symptoms. Abdomen/Pelvis CT 12/08/20 16:01 IMPRESSION: 1. Acute interstitial pancreatitis. 2. Wall thickening of the transverse colon and gastric antrum, consistent with inflammation, likely secondary to pancreatitis. 3. Small volume of ascites. Chest X-Ray 12/08/20 16:0
[2020-12-10] MEDS: polyethylene glycoL 3350 17 GM POWD.PACK PO (08:19)
[2020-12-10] MEDS: FAMOTIDINE 20 MG/2 ML VIAL IV PUSH ×2 (08:19→20:14)
[2020-12-10 14:00] VITALS: BP 148/79; PULSE 70; RESP 18; TEMP 36.2; O2SAT 98
--- NOTE | 2020-12-10 14:34 | PM.IMPN ---
Progress Note: A&P Assessment and Plan (1) Acute pancreatitis: Qualifiers: Acute pancreatitis complication: no infection or necrosis Pancreatitis type: other Qualified Code(s): K85.80 - Other acute pancreatitis without necrosis or infection Code(s): K85.90 - Acute pancreatitis without necrosis or infection, unspecified Status: Acute Assessment and Plan: Differential includes idiopathic pancreatitis verses pancreatitis from her omeprazole -patient was improving but her low-fat diet caused her to have more pain today. I will refer back down to a full liquid diet and see how she does -she has no fevers or tachycardia and her WBC was normal yesterday. i'll see how she does overnight and if she continues to worsen may consider re-scanning. I think she just didn't tolerate the advancement in her diet. -lipase is actually normal today but was drawn before her pain started -MRCP does not show any stones to be the cause. Patient does not drink alcohol -will stop IV fluids -GI consulted, I appreciate their additional recommendations -nelly's criteria 1 on admission and still 1 (although not complete since no abg but pt has not been hypoxic) (2) Abnormal EKG: Code(s): R94.31 - Abnormal electrocardiogram [ECG] [EKG] Status: Acute Assessment and Plan: Noted by the ER physician - Cardiology has been consulted. -The patient does not have any chest pain -echo pending (3) GERD (gastroesophageal reflux disease): Qualifiers: Esophagitis presence: without esophagitis Qualified Code(s): K21.9 - Gastro-esophageal reflux disease without esophagitis Code(s): K21.9 - Gastro-esophageal reflux disease without esophagitis Status: Acute Assessment and Plan: Continue Pepcid Subjective Date/time seen: 12/10/20 14:34 Interval history: Pt is a 70-year-old female here for pancreatitis. Patient was seen today and was doing well and advance to a low-fat diet (consisting of mashed potatoes and fish) for lunch but then started having epigastric pain again. She states this feels exactly like what brought her into the emergency room. She says the pain is a 4/10 and does not want pain medications at this time but will let us know if she changes her mind. She has some mild nausea but does not want Zofran. She is still not had a bowel movement and feels constipated. She denies shortness of breath, chest pain, fevers or chills. Exam Narrative: Exam Narrative: General: Well developed well nourished patient in NAD HEENT: normocephalic Neck: supple Neuro: Alert and oriented x4 CV:RRR Resp:Crackles to the bases Abd: Soft, non distended. Pain to palpation to the epigastric area. Positive bowel sounds. No ecchymosis of the umbilicus or flanks. Extremities: No swelling, erythema, or pain to palpation. Objective Data Vital Signs Vital Signs: Vital Signs - 24 hr 12/09/20 20:39 12/10/20 05:45 Temperature 98 F 97.5 F L Pulse Rate 71 61 Respiratory Rate 18 16 Blood Pressure 134/84 107/63 Pulse Oximetry 98 98 Intake/Output Intake/Output: Intake & Output 12/07/20 12/08/20 12/09/20 12/10/20 23:59 23:59 23:59 23:59 Intake Total 1000 2700 2150 Output Total 1000 600 Balance 1000 1700 1550 Meds/Results Medications: Active Medications Generic Name Dose Route Start Last Admin Trade Name Freq PRN Reason Stop Dose Admin Acetaminophen 650 mg 12/09/20 14:10 12/10/20 03:37 Acetaminophen 325 Mg Tablet PO 650 mg Q6H PRN Administration Mild Pain (1-3) or Fever Hydrocodone Bitart/Acetaminophen 1 tab 12/09/20 14:10 Hydrocodone/Acetaminophen (*Crx) 5-325 Mg Tablet PO Q6H PRN Pain Rated 4-6 Famotidine 20 mg 12/09/20 09:00 12/10/20 08:19 Famotidine 20 Mg/2 Ml Vial IV PUSH 20 mg Q12HR SAMUEL Administration Magnesium Hydroxide 30 ml 12/10/20 14:33 Magnesium Hydroxide Susp 30 Ml Udc PO 12/10/20 14:34 ONCE
[2020-12-10] MEDS: MAGNESIUM HYDROXIDE SUSP 30 ML UDC PO (15:11)
--- NOTE | 2020-12-10 15:46 | PM.PNCARD ---
Progress Note: A&P Assessment and Plan (1) Abnormal EKG: Code(s): R94.31 - Abnormal electrocardiogram [ECG] [EKG] <DEVON Sanchez - Last Filed: 12/10/20 15:53> Status: Acute <DEVON Sanchez - Last Filed: 12/10/20 15:53> Assessment and Plan: EKG upon admission showed nonspecific ST abnormalities - somewhat worse when compared to EKG from December 2019. Initial troponin was negative She is not currently experiencing any chest pain. troponin with a.m. labs - negative Will obtain echocardiogram - results pending <DEVON Sanchez - Last Filed: 12/10/20 15:53> Additional Plan Attending addendum: I have personally seen and examined this patient at bedside. Agree with above documented plan of care as outlined. Patient was feeling well earlier today but developed some nausea and abdominal discomfort after lunch. Patient will not be discharged as a result. Echocardiogram has yet to be obtained. Repeat troponin negative, repeat EKG similar to previous tracing. No recurrent chest pain. This has resolved without recurrence. She is feeling much better overall as she presented with marked elevation in amylase and lipase consistent with idiopathic pancreatitis. MRCP revealed acute interstitial pancreatitis, etiology remains unclear. She has no complaints at this time. Exam: Thin female no apparent distress alert and oriented x3 breathing comfortably speaking full sentences. Exam nonfocal. Lungs clear to auscultation bilaterally. Cardiac exam regular rate and rhythm normal S1-S2, physiologic split S2 with respirations, grade 1/6 early systolic murmur. Abdominal exam soft nontender nondistended. Positive bowel sounds throughout. Extremities no edema clubbing or cyanosis neurologic cranial nerves grossly intact psychiatric mood, appropriate musculoskeletal muscle strength and tone intact. impression/plan of care: Resolved atypical chest pain most likely secondary to GERD negative troponin, abnormal EKG with further subtle nonspecific changes. GERD symptoms resolved, pancreatitis improving with supportive therapy. Trop I neg, EKG abnormal largely unchanged. Echo pending. Will review Echo when available. Anticipate outpatient follow up. Do not plan on ischemic evaluation at this time. <Bertin Rojo MD - Last Filed: 12/10/20 17:42> Subjective Date/time seen: 12/10/20 15:46 <DEVON Sanchez - Last Filed: 12/10/20 15:53> Interval history: Cardiology follow-up for chest pain Date of service 12/10/2020: Patient is feeling much worse today. She states that after she ate this morning she began having abdominal pain and has been nauseous and vomiting this afternoon. She denies any chest pain but she says she just feels like she needs to throw up. <DEVON Sanchez - Last Filed: 12/10/20 15:53> Review of Systems Review of Systems: All systems reviewed & are unremarkable except as noted in HPI and below <DEVON Sanchez - Last Filed: 12/10/20 15:53> Constitutional: Constitutional: Denies fatigue, Denies lethargy, Denies weakness and Reports weight loss <DEVON Sanchez - Last Filed: 12/10/20 15:53> Eyes: Eyes: Denies change in vision <DEVON Sanchez - Last Filed: 12/10/20 15:53> ENT: Reports Normal hearing present <DEVON Sanchez - Last Filed: 12/10/20 15:53> Cardiovascular: Cardiovascular: Denies chest pain, Denies pedal edema, Denies palpitations and Denies dyspnea <DEVON Sanchez - Last Filed: 12/10/20 15:53> Respiratory: Respiratory: Denies dyspnea <DEVON Sanchez - Last Filed: 12/10/20 15:53> Gastrointestinal: Gastrointestinal: Reports abdominal pain, Reports bloating, Reports constipation, Reports heartburn and Reports hematemesis <DEVON Sanchez - Last Filed: 12/10/20 15:53> Musculoskeletal: Musculoskeletal: Denies abnormal gait and Reports back pain <Rebeca Cordero APN
[2020-12-10 20:16] VITALS: BP 138/75; PULSE 66; RESP 16; TEMP 37.2; O2SAT 99
[2020-12-11 06:06] LABS: Hemoglobin 11.5 g/dL (12.0-15.0); Mean Corpuscular HGB Conc 32.9 g/dl (32-36); Mean Corpuscular Hemoglobin 29.4 pg (26-34); Mean Corpuscular Volume 89.5 fl (80-100); Mean Platelet Volume 10.5 fl (7.4-10.4); Platelet Count Result 198 k/mm3 (150-375); Red Blood Count 3.91 M/mm3 (4.2-5.4); Red Cell Distribution Width 14.6 % (11.5-14.5); White Blood Count 8.3 K/mm3 (4.5-10.0)
[2020-12-11 06:15] LABS: Alanine Aminotransferase 16 U/L (4-35); Albumin Level 3.2 g/dL (3.5-5.1); Alkaline Phosphatase 43 U/L (38-126); Anion Gap 5 mmol/L (8-16); Aspartate Amino Transferase 31 U/L (14-36); Bilirubin,Total 0.7 mg/dL (0.2-1.3); Blood Urea Nitrogen 6 mg/dL (7-17); Calcium 7.9 mg/dL (8.4-10.2); Carbon Dioxide 30 mmol/L (22-30); Chloride 105 mmol/L (98-107); Estimated Glomerular Filt Rate > 60; Glucose 83 mg/dL (65-105); Lipase 1387 U/L (23-300); Potassium 3.1 mmol/L (3.4-5.0); Sodium 140 mmol/L (137-145)
--- NOTE | 2020-12-11 07:46 | WPDGIPROGNO ---
Progress Note: A&P Assessment and Plan (1) Acute pancreatitis: Qualifiers: Acute pancreatitis complication: no infection or necrosis Pancreatitis type: other Qualified Code(s): K85.80 - Other acute pancreatitis without necrosis or infection Code(s): K85.90 - Acute pancreatitis without necrosis or infection, unspecified Status: Acute Assessment and Plan: Pancreatitis improving appears to be idiopathic. Had slight relapse yesterday on restarting diet. Would once again goes slow with advancing diet. (2) History of colon polyps: Code(s): Z86.010 - Personal history of colonic polyps Status: Acute Assessment and Plan: Colon polyps by endoscopy several years ago. Follow-up colonoscopy at 5 year intervals advise long-term. (3) GERD (gastroesophageal reflux disease): Qualifiers: Esophagitis presence: without esophagitis Qualified Code(s): K21.9 - Gastro-esophageal reflux disease without esophagitis Code(s): K21.9 - Gastro-esophageal reflux disease without esophagitis Status: Acute Assessment and Plan: Patient has GE reflux symptoms appears stable at present. We will maintain her on Pepcid. Family maintained his omeprazole contributed to her constipation. (4) Liver mass: Code(s): R16.0 - Hepatomegaly, not elsewhere classified Status: Acute Assessment and Plan: Hemangioma suggested by CT scanning. No additional workup warranted at this time. (5) Constipation: Code(s): K59.00 - Constipation, unspecified Status: Acute Assessment and Plan: Constipation improved on taking laxatives yesterday. Patient advised to take milk of magnesia or MiraLax on an as-needed basis. She had not previously tried any laxatives. Subjective Date/time seen: 12/11/20 07:46 Patient feels better today. Yesterday had increased abdominal pain on trying solid diet. Lipase noted to increase again. Apparently did not tolerate more solid food. Patient had good bowel movement after taking laxatives. She feels much improved once again today. Would suggest advancing slowly to a low-fat diet. Will leave this to the discretion of primary care service. Review of Systems Review of Systems: All systems reviewed & are unremarkable except as noted in HPI and below Exam Narrative: Exam Narrative: Patient comfortable at rest. Vital signs stable. HEENT exam reveals no icterus. Lungs are clear. Heart without murmur. Abdomen bowel sounds present soft no nontender with no organomegaly evident. Objective Data Vital Signs Vital Signs: Vital Signs - 24 hr 12/10/20 14:00 12/10/20 20:16 Temperature 97.2 F L 98.9 F Pulse Rate 70 66 Respiratory Rate 18 16 Blood Pressure 148/79 H 138/75 Pulse Oximetry 98 99 Intake/Output Intake/Output: Intake & Output 12/08/20 12/09/20 12/10/20 12/11/20 23:59 23:59 23:59 23:59 Intake Total 1000 2700 3230 500 Output Total 1000 1600 Balance 1000 1700 1630 500 Meds/Results Medications: Active Medications Generic Name Dose Route Start Last Admin Trade Name Freq PRN Reason Stop Dose Admin Acetaminophen 650 mg 12/09/20 14:10 12/10/20 19:29 Acetaminophen 325 Mg Tablet PO 650 mg Q6H PRN Administration Mild Pain (1-3) or Fever Hydrocodone Bitart/Acetaminophen 1 tab 12/09/20 14:10 Hydrocodone/Acetaminophen (*Crx) 5-325 Mg Tablet PO Q6H PRN Pain Rated 4-6 Famotidine 20 mg 12/09/20 09:00 12/10/20 20:14 Famotidine 20 Mg/2 Ml Vial IV PUSH 20 mg Q12HR SAMUEL Administration Morphine Sulfate 2 mg 12/09/20 14:12 Morphine Sulfate (*Crx) 4 Mg/Ml Inj IV PUSH Q2H PRN Pain Rated 7-10 Ondansetron HCl 4 mg 12/08/20 16:37 Ondansetron Inj 4 Mg/2 Ml Vial IV PUSH Q4H PRN Nausea Polyethylene Glycol 17 gm 12/10/20 09:00 12/10/20 08:19 Polyethylene Glycol 3350 17 Gm Powd.Pack PO 17 gm QAM SAMUEL Administration Radiology
--- NOTE | 2020-12-11 08:00 | ECHO_ITS ---
Patient Info Name: Blanka Osborn Age: 70 years : 1950 Gender: Female Ht: 58 in Wt: 90 lbs BSA: 1.29 m2 HR: 62 bpm BP: 138 / 75 mmHg Heart Rhythm: Sinus Rhythm Technical Quality: Good Exam Date: 12/11/2020 10:09 AM Exam Location: [facility] Patient Status: Inpatient Admit Date: 12/08/2020 Staff Ordering Physician: Bertin Rojo MD Director [employer]: Alex Sue RDCS, RT Attending Provider: Ximena Eduardo PA-C Referring Physician: Alia NORRIS; Exam Type: CA echo doppler color flow Study Info Indications R07.9 - Chest pain, unspecified Complete two-dimensional, color flow and Doppler transthoracic echocardiogram is performed. Strain analysis performed. Summary 1. Complete two-dimensional, color flow and Doppler transthoracic echocardiogram is performed. 2. Left ventricular systolic function is normal, estimated at 65-70%. 3. There is no increased left ventricular wall thickness. 4. The left ventricular diastolic function is grade I diastolic dysfunction. 5. There is no mitral valve regurgitation. 6. There is mild tricuspid valve regurgitation. 7. No pulmonary hypertension, estimated pulmonary arterial systolic pressure is 29 mmHg. Left Ventricle Left ventricular chamber dimension is normal. Left ventricular systolic function is normal, estimated at 65-70%. There is no increased left ventricular wall thickness. The left ventricular diastolic function is grade I diastolic dysfunction. Global longitudinal strain is normal at -21 %. Right Ventricle Right ventricular chamber dimension is normal. Right ventricular systolic function is normal. Left Atria Left atrial chamber dimension is normal. Right Atria Right atrial chamber dimension is normal. Aortic Valve The aortic valve is trileaflet. There is mild aortic valve sclerosis. There is no aortic valve stenosis. There is no aortic valve regurgitation. Pulmonic Valve The pulmonic valve is not well visualized. Mitral Valve The mitral valve has normal leaflets. There is no mitral valve regurgitation. The mitral valve annulus is mildly calcified. Tricuspid Valve The tricuspid valve leaflets are normal. There is mild tricuspid valve regurgitation. No pulmonary hypertension, estimated pulmonary arterial systolic pressure is 29 mmHg. Pericardium/Pleural The pericardium appears normal. There is no pericardial effusion. Inferior Vena Cava Normal inferior vena cava with >50% collapse upon inspiration consistent with normal right atrial pressure, 5 mmHg. Aorta The aortic root size at the sinus of Valsalva is normal. Left Ventricular Outflow Tract Name Value Normal LVOT 2D LVOT Diameter 1.8 cm LVOT Doppler LVOT Peak Gradient 4 mmHg LVOT Mean Gradient 2 mmHg LVOT VTI 21 cm LVOT VTI/AV VTI Ratio 0.8 LVOT Stroke Volume 54 ml LVOT CO 3.5 l/min LVOT CI 2.7 l/min/m2 Mitral Valve
[2020-12-11] MEDS: polyethylene glycoL 3350 17 GM POWD.PACK PO (08:48)
[2020-12-11] MEDS: FAMOTIDINE 20 MG/2 ML VIAL IV PUSH (08:48)
[2020-12-11] MEDS: POTASSIUM CHLORIDE 20 MEQ TABLET 40 MEQ PO (11:34)
--- NOTE | 2020-12-11 13:20 | PM.DS ---
DS: Admitting Diagnosis Admitting Diagnosis Admitting Diagnosis: pancreatitis DS: Discharge Diagnosis Discharge Diagnosis (1) Acute pancreatitis: Qualifiers: Acute pancreatitis complication: no infection or necrosis Pancreatitis type: other Qualified Code(s): K85.80 - Other acute pancreatitis without necrosis or infection Code(s): K85.90 - Acute pancreatitis without necrosis or infection, unspecified Status: Acute Assessment and Plan: Differential includes idiopathic pancreatitis verses pancreatitis from her omeprazole -patient's pain had improved the day of discharge and she was able to tolerate a low-fat diet -lipase was elevated the day of discharge but I suspect these will return normal as the patient is improving -she has no fevers or tachycardia and her WBC is normal. No signs of worsening pancreatitis -MRCP 12/09/20 does not show any stones to be the cause. Patient does not drink alcohol -nelly's criteria 1 on admission and still 1 day of discharge (although not complete since no abg but pt has not been hypoxic) (2) Abnormal EKG: Code(s): R94.31 - Abnormal electrocardiogram [ECG] [EKG] Status: Acute Assessment and Plan: Noted by the ER physician - Cardiology has been consulted. -The patient does not have any chest pain -echo monitored -follow-up cardiology outpatient (3) GERD (gastroesophageal reflux disease): Qualifiers: Esophagitis presence: without esophagitis Qualified Code(s): K21.9 - Gastro-esophageal reflux disease without esophagitis Code(s): K21.9 - Gastro-esophageal reflux disease without esophagitis Status: Acute Assessment and Plan: Continue Pepcid DS: Summary Hospital Course Hospital Course: Patient is 70-year-old female who presented emergency room for epigastric pain with vomiting. Vitals in the ER were temperature 37.0? C, pulse 74, respiratory rate 18, blood pressure 143/99, pulse ox 100 on room air. Initial white blood cell count 10.8. BMP relatively within normal limits. Troponin negative. Lipase 17,301. UA not suggestive of urinary tract infection. Abdominal pelvis CT showed acute interstitial pancreatitis with wall thickening of the transverse colon and gastric antrum consistent with inflammation likely secondary to pancreatitis. She has had a small volume of ascites. Chest x-ray was negative. Abdominal ultrasound showed no etiology for patient's symptoms. Patient was admitted to the hospital service and started on IV fluids and monitored. Her abdominal pain initially improved pretty quickly and her diet was advanced. During that time, she got sick with the low-fat diet and her lipase, which was trending down, actually went up. She was taken back down to full liquids and had bowel rest throughout that night. The next day she was able to eat a low-fat diet without any pain. She was walking around the room and felt ready to go home. She did have some constipation which was relieved with MiraLax as well as milk a magnesia. She did have new EKG findings (compared to an old EKG) with flipped T-waves in the lateral leads without any chest pain and her troponins were negative x3. Echocardiogram was done which did not show any acute pathology but did show grade 1 diastolic dysfunction and a normal EF. Cardiology was consulted and are planning on following up with her outpatient. Patient was educated about the worrisome signs and symptoms come back to emergency room for and was discharged in stable condition. She plans to follow-up with her primary care physician 1-2 weeks about this stay. Status at Discharge Functional status at discharge: independent ambulation Overall status at discharge: patient is back to baseline Time Spent with Patient Time attestation: Total time spent providing and/or coordinating discharge services:36 min Time spent: Greater than 30 minutes Exam Narrative: Exam Narrative: Gen
== END 2020-12-11 16:40 | disposition home or self-care (01) | DRG 440 ==
LOC: ANHED 17:17 → ANH3MED 23:02 → ANH3MEDSUR 12-12 15:09
PROVIDERS: Internal Medicine Cardiovascular Disease; Nurse Practitioner; Admitting Provider Family Medicine; Emergency Provider Emergency Medicine; PCP Emergency Medicine; Visit Provider Physician Assistant
DX: K85.80 Other acute pancreatitis without necrosis or infection (principal); K21.9 Gastro-esophageal reflux disease without esophagitis; K59.00 Constipation, unspecified; R07.89 Other chest pain; R94.31 Abnormal electrocardiogram [ECG] [EKG]; R16.0 Hepatomegaly, not elsewhere classified; Z79.899 Other long term (current) drug therapy; Z86.010 Personal history of colon polyps; Z87.891 Personal history of nicotine dependence
CPT/HCPCS: 36415; 71046; 74177; 74183; 76376; 76705; 80048; 80053; 80061; 80076; 81001; 83690; 84484; 85025; 85027; 93005; 93306; 96374; 96375; 99285; A9270; A9577; J2270; J2405; J7030; Q9967

== ENCOUNTER 2020-12-14 23:33 | Inpatient (IN) | payer MEDICARE, OTHER, SELFPAY ==
--- NOTE | ~2020-12-14 | CT_ITS ---
EXAMINATION: CT abdomen pelvis w con EXAM DATE: 12/15/2020 00:38 INDICATION: Epigastric abdominal pain history of pancreatitis . TECHNIQUE: Spiral CT of the abdomen and pelvis was performed following intravenous injection of 100 m L Omnipaque 350. Axial, coronal and sagittal images of the abdomen and pelvis were reviewed. The do se-length product (DLP) for this examination was 169.00 mGy-cm. The exposure was tailored according to patient size (auto mA exposure control), and iterative reconstruction (ASIR) was used as additiona l dose reduction technique. Comparison is made to prior examination from 12/08/2020. FINDINGS: There is inflammation within the retroperitoneum, mesentery and portal triad. The pancreas has homogeneous enhancement. Small amount of pericholecystic and perihepatic fluid. There is a liver lesion with peripheral nodular enhancement, hemangioma measuring up to about 4 cm. Numerous liver cys ts. Spleen and adrenal glands are unremarkable. Gallbladder is moderately distended. No calcified cho lelithiasis. Portal and splenic veins are patent. Kidneys enhance symmetrically. There is no hydro nephrosis. The uterus is not identified and has likely been surgically resected. The bladder is un remarkable. There is no retroperitoneal or pelvic lymphadenopathy. There is mild scattered arterio sclerotic disease. There are no findings to suggest appendicitis. Patient has moderately distended stomach with air-flu id level and gastroesophageal reflux, There is moderate amount of colonic stool. There is mild sigmo id colonic diverticulosis. There is no adjacent inflammatory change to suggest diverticulitis. Prev iously seen transverse colonic edema remains, consistent with colitis. No free intraperitoneal gas. The heart is normal in size. There are no pericardial or pleural effusions. The lung bases are u nremarkable. There are no osteoblastic or osteolytic lesions identified. Chronic bilateral L3 pars d efects with grade 1 anterolisthesis L3 on L4. IMPRESSION: 1. Progression of retroperitoneal, mesenteric, periportal inflammation. Small perihepatic, perichole cystic ascites. Probably sequela from acute pancreatitis. 2. Persistent transverse colonic wall edema, could be reactive from pancreatic inflammation or colit is. 3. Distended but otherwise unremarkable gallbladder. 4. Distended stomach with gastroesophageal reflux, esophagitis. 5. Liver hemangioma. Reviewed, dictated and finalized at location B. IMPRESSION: 1. Progression of retroperitoneal, mesenteric, periportal inflammation. Small perihepatic, pericholecystic ascites. Probably sequela from acute pancreatitis. 2. Persistent transverse colonic wall edema, could be reactive from pancreatic inflammation or colitis. 3. Distended but otherwise unremarkable gallbladder. 4. Distended stomach with gastroesophageal reflux, esophagitis. 5. Liver hemangioma.
[2020-12-14 23:41] VITALS: BP 167/97; PULSE 86; RESP 18; TEMP 37; O2SAT 99
[2020-12-14 23:58] LABS: Basophils Percent Auto 0.4 % (0.2-1.2); Eosinophils Absolute Auto 0.1 K/mm3 (0-0.3); Eosinophils Percent Auto 1.5 % (0-4.4); Hematocrit 41.1 % (37.0-47.0); Hemoglobin 13.6 g/dL (12.0-15.0); Immature Granulocyte Absolute 0.03 K/mm3 (0.00-0.031); Immature Granulocyte Percent A 0.4 % (0-0.5); Lymphocytes Absolute Auto 2.19 K/mm3 (0.9-3.2); Lymphocytes Percent Auto 25.9 % (18.3-44.2); Mean Corpuscular HGB Conc 33.1 g/dl (32-36); Mean Corpuscular Hemoglobin 29.9 pg (26-34); Mean Corpuscular Volume 90.3 fl (80-100); Mean Platelet Volume 10.2 fl (7.4-10.4); Monocytes Absolute Auto 0.6 K/mm3 (0.1-0.6); Monocytes Percent Auto 6.5 % (2.6-8.5); Neutrophils Absolute Auto 5.5 K/mm3 (1.3-6.7); Neutrophils Percent Auto 65.3 % (45.5-73.1); Platelet Count Result 260 k/mm3 (150-375); Red Blood Count 4.55 M/mm3 (4.2-5.4); Red Cell Distribution Width 14.6 % (11.5-14.5); White Blood Count 8.4 K/mm3 (4.5-10.0)
[2020-12-15] VITALS (7 sets, daily range): BP systolic 107–132; BP diastolic 67–93; PULSE 56–117; RESP 16–18; TEMP 36.2–36.6; O2SAT 96–100; BMI 18.6; BMI 19.3
[2020-12-15] MEDS: ONDANSETRON INJ 4 MG/2 ML VIAL IV PUSH (00:08)
[2020-12-15] MEDS: SODIUM CHLORIDE 0.9% IV 1,000 ML 999 ML IV CONT (00:08)
[2020-12-15] MEDS: PANTOPRAZOLE SODIUM IV 40 MG VIAL IV PUSH (00:08)
[2020-12-15] MEDS: MORPHINE SULFATE (*CRX) 4 MG/ML INJ IV PUSH (00:09)
[2020-12-15 00:10] LABS: Lactic Acid Reflex 1.2 mmol/L (0.7-2.1)
[2020-12-15 00:19] LABS: Alanine Aminotransferase 22 U/L (4-35); Albumin Level 4.2 g/dL (3.5-5.1); Alkaline Phosphatase 52 U/L (38-126); Anion Gap 8 mmol/L (8-16); Aspartate Amino Transferase 47 U/L (14-36); Bilirubin,Total 0.4 mg/dL (0.2-1.3); Blood Urea Nitrogen 18 mg/dL (7-17); Calcium 9.6 mg/dL (8.4-10.2); Carbon Dioxide 34 mmol/L (22-30); Chloride 98 mmol/L (98-107); Estimated Glomerular Filt Rate > 60; Glucose 138 mg/dL (65-105); Potassium 3.2 mmol/L (3.4-5.0); Sodium 140 mmol/L (137-145)
[2020-12-15 00:41] LABS: Lipase 18703 U/L (23-300)
--- NOTE | 2020-12-15 00:41 | ED.GENADULT ---
HPI - General Adult General Chief complaint: Abdominal Pain Stated complaint: abd pain/ n/v Time Seen by Provider: 12/14/20 23:35 History of Present Illness HPI narrative: Patient 70-year-old female presents emerged department chief complaint of epigastric pain. The patient reports she was recently admitted to the hospital for pancreatitis was discharged home states has been home for couple days now started to slowly advance her diet and now started having severe epigastric pain similar to whenever her pancreatitis was flared up the other day. Patient denies fever denies chills reports she has nausea with this denies diarrhea. Related Data Home Medications Medication Instructions Recorded Confirmed cholecalciferol (vitamin D3) 25 1,000 unit PO DAILY tablet 06/11/20 12/08/20 mcg (1,000 unit) tablet Allergies Allergy/AdvReac Type Severity Reaction Status Date / Time caffeine AdvReac Severe VERY Verified 12/15/20 00:12 SENSITIVE, HAS RAPID HEART BEAT food Allergy Other Uncoded 12/15/20 00:12 Review of Systems Review of Systems: Narrative: A 10 system review of systems was completed on the patient and is negative except for what is stated in the HPI. Nursing and ancillary documentation was reviewed. [facility] [place] Past Medical History Medical History Anxiety Fever Food additives allergy status GERD (gastroesophageal reflux disease) Headache Macular edema left eye Multiple food allergies Other screening mammogram Palpitations Throat pain Trigger finger of left thumb Vitamin D deficiency disease Surgical History Surgical History H/O cataract removal with insertion of prosthetic lens left eye H/O colonoscopy with polypectomy H/O: hysterectomy Family History Family History Mother Family history of lung cancer, Onset Age: 76 Sibling Diabetes mellitus Family history of cardiovascular disease Family history of malignant neoplasm of breast in first degree relative, Onset Age: 64 Father Hypertension Social History Social History Social History: the patient lives with her . She has 2 children. 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 She is to smoke many years ago. No alcohol or illicit drugs. 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 The patient is a full code. Smoking packs per day: 1 Smoking cigarettes per day: 20.0 Years smoked: 10 Smoking pack-years: 10.00 Smoking status: Former smoker Tobacco type: cigarettes Alcohol intake: never Substance use: never Gender identity (if verbalized by the patient): Female Spiritual care concerns: No Exam Narrative: Exam Narrative: GENERAL: Well-appearing, well-nourished, and in no acute distress. HEAD: Normocephalic, atraumatic. EYES: PERRLA and EOMI. ENT: Nares clear, no rhinorrhea or epistaxis. Mucous membranes moist. NECK: Supple. CHEST: Clear to auscultation. No respiratory distress. HEART: Regular rate and rhythm. No murmur heard. Normal peripheral pulses. ABDOMEN: Soft, tender to palpation in the epigastric region, nondistended, normal active bowel sounds. EXTREMITIES: Normal range of motion. No edema. SKIN: Warm, dry, no rash. NEURO: No focal deficits. Alert and oriented x3. PSYCH: Normal mood and affect. Course Vital Signs Vital signs: Vital Signs Temperature 37.0 C 12/14/20 23:41 Pulse Rate 86 12/14/20 23:41 Respiratory Rate 18 12/14/20 23:41 Blood Pressure 167/97 H 12/14/20 23:41 Pulse Oximetry 99 12/14/20 23:41 Temperature 37.0 C 12/14/20 23:41 Pulse Rate 86 12/14/20 23:41 Respiratory Rate 18 12/14/20 23:41 Blood Pressure 167/97 H 12/14/20 23:41 Pulse Oximetry
[2020-12-15 00:58] LABS: Add Urine Microscopic? YES; Appearance Urine Clear (Clear); Bacteria Urine Trace /hpf; Bilirubin Urine Negative (Negative); Blood Urine Negative (Negative); Color Urine Yellow (Yellow); Glucose Urine UA Negative (Negative); Ketones Urine Negative (Negative); Leukocyte Esterase Ur 3+ LEU/UL (Negative); Mucus Urine Rare /lpf; Nitrate Urine Negative (Negative); Protein Urine 1+ mg/dL (Negative); Squamous Epithelial Cell Urine Rare /hpf (Few); Urobilinogen Urine Negative mg/dL (<2.0); WBC Urine 21-30 /hpf
[2020-12-15 01:02] LABS: Specific Grav Ur 1.057 (1.001-1.035)
--- NOTE | 2020-12-15 02:22 | PM.IMHP ---
H&P: HPI History of Present Illness Date/Time: 12/15/20 02:22 Chief Complaint: NAUSEA AND VOMITING Narrative: This is a 70-year-old female with known significant past medical history however patient was recently discharged from [facility] where she was admitted for acute pancreatitis and discharged home patient has been doing well up until today when after suppertime she had nausea and vomiting with severe epigastric pain burning sensation in the retrosternal area as well, has been having diarrhea once a day for the last 2 days or so, she denies any fevers chills or rigors however has been feeling cold, she denies any pain or burning with urination, no cough no sputum production no shortness of breath. [place] [address], urinalysis was significant for numerous wbc's present. Patient has been admitted to general medical floor. Review of Systems Review of Systems: Narrative: Nausea vomiting epigastric pain heartburn diarrhea Constitutional: Constitutional: Denies chills, Denies fever(s) and Denies malaise Eyes: Eyes: Denies change in vision ENT: Denies nasal congestion, Denies nasal discharge and Denies nasal obstruction Cardiovascular: Cardiovascular: Denies irregular heart rhythm, Denies radiating jaw, neck or arm pain, Denies palpitations and Denies dyspnea on exertion Respiratory: Respiratory: Denies cough and Denies dyspnea Gastrointestinal: Gastrointestinal: Reports abdominal pain, Reports heartburn, Reports diarrhea, Reports nausea and Reports vomiting Genitourinary: Genitourinary: Denies dysuria Musculoskeletal: Musculoskeletal: Reports no additional musculoskeletal complaints Integumentary/Breasts: Skin/Breast: Reports system reviewed and no additional complaints, except as docu Neurologic: Reports system reviewed and no additional complaints, except as documented Psychiatric: Psychiatric: Reports no additional psychiatric complaints Endocrine: Endocrine: Reports no additional endocrine complaints Hematologic/Lymphatic: Hematologic/Lymphatic: Reports no additional hematologic/lymphatic complaints Allergic/Immunologic: Allergic/Immunologic: Reports no additional allergic/immunologic complaints PMFSH Past Medical History Medical History Anxiety Fever Food additives allergy status GERD (gastroesophageal reflux disease) Headache Macular edema left eye Multiple food allergies Other screening mammogram Palpitations Throat pain Trigger finger of left thumb Vitamin D deficiency disease Surgical History Surgical History H/O cataract removal with insertion of prosthetic lens left eye H/O colonoscopy with polypectomy H/O: hysterectomy Family History Family History Mother Family history of lung cancer, Onset Age: 76 Sibling Diabetes mellitus Family history of cardiovascular disease Family history of malignant neoplasm of breast in first degree relative, Onset Age: 64 Father Hypertension Social History Social History Social History: the patient lives with her . She has 2 children. 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 She is to smoke many years ago. No alcohol or illicit drugs. No marijuana patient's is a durable power tax attorney for healthcare. The patient is a full code. Smoking packs per day: 1 Smoking cigarettes per day: 20.0 Years smoked: 10 Smoking pack-years: 10.00 Smoking status: Former smoker Tobacco type: cigarettes Alcohol intake: never Substance use: never Gender identity (if verbalized by the patient): Female Spiritual care concerns: No Meds Home Medications and Allergies Home Medications Medication Instructions Recorde
--- NOTE | 2020-12-15 02:41 | PC.NURSE ---
This patient, Blanka Osborn, was admitted to 3 Med Surg Room 302-01 @02:42. Report taken from Edwin GARNER in ED. Patient/family oriented to hospital policies and general routines including ID bracelet, bed and alarms, visiting hours, pain management, procedures, bathroom and other care routines, personal items, smoking policy, room service/diet, and visiting hours. Information on how to activate the Rapid Response Team has been discussed. Patient/Family are encouraged to report perceived risks to care and to ask questions if they do not understand what they are told or what they should do.
[2020-12-15] MEDS: LACTATED RINGERS 1,000 ML 75 ML IV CONT ×2 (03:04→18:14)
[2020-12-15 06:33] LABS: Basophils Percent Auto 0.4 % (0.2-1.2); Eosinophils Absolute Auto 0.1 K/mm3 (0-0.3); Hematocrit 31.6 % (37.0-47.0); Hemoglobin 10.6 g/dL (12.0-15.0); Immature Granulocyte Absolute 0.02 K/mm3 (0.00-0.031); Immature Granulocyte Percent A 0.3 % (0-0.5); Lymphocytes Absolute Auto 1.55 K/mm3 (0.9-3.2); Lymphocytes Percent Auto 22.6 % (18.3-44.2); Mean Corpuscular HGB Conc 33.5 g/dl (32-36); Mean Corpuscular Hemoglobin 29.9 pg (26-34); Mean Platelet Volume 10.6 fl (7.4-10.4); Monocytes Absolute Auto 0.3 K/mm3 (0.1-0.6); Monocytes Percent Auto 4.4 % (2.6-8.5); Neutrophils Absolute Auto 4.9 K/mm3 (1.3-6.7); Neutrophils Percent Auto 71.3 % (45.5-73.1); Platelet Count Result 213 k/mm3 (150-375); Red Blood Count 3.55 M/mm3 (4.2-5.4); Red Cell Distribution Width 14.7 % (11.5-14.5); White Blood Count 6.9 K/mm3 (4.5-10.0)
[2020-12-15 06:51] LABS: Anion Gap 7 mmol/L (8-16); Blood Urea Nitrogen 15 mg/dL (7-17); Calcium 7.9 mg/dL (8.4-10.2); Carbon Dioxide 26 mmol/L (22-30); Chloride 106 mmol/L (98-107); Estimated Glomerular Filt Rate > 60; Glucose 101 mg/dL (65-105); Sodium 139 mmol/L (137-145)
[2020-12-15 06:52] LABS: Magnesium 1.9 mg/dL (1.6-2.3); Triglycerides 61 mg/dL (<150)
[2020-12-15 07:20] LABS: Lipase 5179 U/L (23-300)
[2020-12-15] MEDS: FAMOTIDINE 20 MG/2 ML VIAL IV PUSH (08:33)
--- NOTE | 2020-12-15 13:14 | PCNSR ---
On 12/15/20, the student,Venessa Maddxo, provided care and completed [facility] documentation on this patient. I have reviewed the student's documentation and agree with the findings.
[2020-12-15] MEDS: ENOXAPARIN 40 MG/0.4 ML SYRINGE SUB-Q (13:15)
--- NOTE | 2020-12-15 13:34 | PM.IMPN ---
Progress Note: A&P Assessment and Plan (1) Acute pancreatitis: Qualifiers: Acute pancreatitis complication: unspecified Pancreatitis type: other Qualified Code(s): K85.80 - Other acute pancreatitis without necrosis or infection Code(s): K85.90 - Acute pancreatitis without necrosis or infection, unspecified Status: Acute Assessment and Plan: CT shows progression of retroperitoneal, mesenteric, and periportal inflammation with small perihepatic and pericholecystic ascites, likely sequela from acute pancreatitis. LFTs reviewed and are unremarkable with the exception of mildly elevated AST at 47. MRCP and RUQ US at last hospitalization [place]. [place] [address] at presentation, improved today at 5000. Tolerating clear liquids. Will place consult to gastroenterology given recurrence of acute pancreatitis Continue clear liquid diet as tolerated Continue gentle IV fluids Analgesics and antiemetics available as needed. Trend lipase (2) Acute UTI: Code(s): N39.0 - Urinary tract infection, site not specified Status: Acute Assessment and Plan: Urinalysis abnormal at presentation and she is symptomatic. No fever or leukocytosis. Continue IV Rocephin Urine cultures pending. Await results and tailor antibiotics accordingly (3) Hematemesis: Code(s): K92.0 - Hematemesis Status: Acute Assessment and Plan: New onset hematemesis as of 12/14. No episodes today. Concern for duodenal ulcer vs carlos-anton tear given recent N/V. Appreciate gastroenterology consultation. She will likely benefit from EGD Switch to protonix BID (4) GERD (gastroesophageal reflux disease): Qualifiers: Esophagitis presence: without esophagitis Qualified Code(s): K21.9 - Gastro-esophageal reflux disease without esophagitis Code(s): K21.9 - Gastro-esophageal reflux disease without esophagitis Status: Acute Assessment and Plan: Currently asymptomatic but with new onset hematemesis Protonix bid as above (5) Normocytic anemia: Code(s): D64.9 - Anemia, unspecified Status: Acute Assessment and Plan: Hgb was 13.6 at presentation with decline down to 10.6. Suspect acute blood loss given recent hematemesis as noted above. Also suspect dilutional component given IV fluid hydration. Vital signs are stable and no evidence of ongoing blood loss Will repeat H&H this afternoon to ensure remaining stable. Transfuse as needed to stable Hgb >7.0 (6) Liver mass: Code(s): R16.0 - Hepatomegaly, not elsewhere classified Status: Acute Assessment and Plan: Hemangioma noted on CT a/p. This has been imaged previously with MRI in May 2020. Subjective Date/time seen: 12/15/20 13:34 Interval history: Date of service: 12/15/20 Blanka Osborn is a 70 year old female with a history of GERD, anxiety, and recent hospitalization from 12/08-12/11 for pancreatitis who is seen in follow up for recurrent episode of pancreatitis. She is feeling better today. Her abdominal pain has improved. She denies nausea or vomiting today. She is doing fine with clear liquids. She notes that yesterday she had 4 episodes of dark bloody emesis and estimates approximately 5 tsp of blood. She has not had any further episodes today. She denies GERD symptoms. She has been having diarrhea the past few days with her last episode last night. She denies melena or hematochezia. She denies SOB, cough, chest pain. No dizziness or lightheadedness. Denies headache or body aches. She also endorses suprapubic discomfort and low back pain. She is no longer having dysuria and denies urgency, frequency, or hematuria. Review of Systems Review of Systems: All systems reviewed & are unremarkable except as noted in HPI and below Exam Narrative: Exam Narrative: Ms. Osborn is a well-nourished, well-appearing 70-year-old female who is lying supine in bed.
[2020-12-15 15:35] LABS: Hematocrit 32.4 % (37.0-47.0); Hemoglobin 10.5 g/dL (12.0-15.0)
--- NOTE | 2020-12-15 16:12 | WPDGICN ---
Assessment and Plan Assessment and plan (1) Acute pancreatitis: Qualifiers: Acute pancreatitis complication: unspecified Pancreatitis type: other Qualified Code(s): K85.80 - Other acute pancreatitis without necrosis or infection Code(s): K85.90 - Acute pancreatitis without necrosis or infection, unspecified Status: Acute Assessment and Plan: Patient appears to have a relapse of acute pancreatitis. No specific precipitating factors identified. She does not drink and no gallstones have been identified. Plan is for supportive care. An EGD will be performed to exclude ulcer disease contributing to her pancreatitis. (2) Hematemesis: Code(s): K92.0 - Hematemesis Status: Acute Assessment and Plan: Patient notes that she vomited small clot of blood. Plan is for EGD to assess more thoroughly. She does have a known history of esophagitis. EGD will assess the status of this as well as exclude ulcers that may contribute to pancreatitis. (3) History of colon polyps: Code(s): Z86.010 - Personal history of colonic polyps Status: Acute Assessment and Plan: Patient has a history of colon polyps. Recent colonoscopy was performed plan is for follow-up colonoscopy at 5 year intervals. (4) GERD (gastroesophageal reflux disease): Qualifiers: Esophagitis presence: without esophagitis Qualified Code(s): K21.9 - Gastro-esophageal reflux disease without esophagitis Code(s): K21.9 - Gastro-esophageal reflux disease without esophagitis Status: Acute (5) Liver mass: Code(s): R16.0 - Hepatomegaly, not elsewhere classified Status: Acute Assessment and Plan: Benign hemangioma identified by CT scan. No additional workup warranted at this time. GI Consult Note Consult date/time: 12/15/20 16:12 HPI: Blanka Osborn is a 70 year old female Seen in evaluation at the request of hospitalist service. Patient recently hospitalized with idiopathic pancreatitis. She was allowed to go home. Over the last 3 days however began to develop upper abdominal pain associated with vomiting. She presented the emergency room last evening noted once again have very large elevated lipase level. CT scan consistent with pancreatitis patient has had several episodes of pancreatitis. MRCP performed last week revealed no evidence of choledocholithiasis no evidence of gallstones and a normal appearing gallbladder. Patient reports that emesis included blood clots. Patient does have past medical history of GE reflux disease for which she has been on proton pump inhibitor therapy. At the time of admission significant pyuria raise the question of underlying urinary tract infection. Patient has been treated for acid reflux and has felt constipated on starting omeprazole therefore she was discharged on Pepcid. Review of Systems Review of Systems: All systems reviewed & are unremarkable except as noted in HPI and below PMFSH Past Medical History Medical History Anxiety Fever Food additives allergy status GERD (gastroesophageal reflux disease) Headache Macular edema left eye Multiple food allergies Other screening mammogram Palpitations Throat pain Trigger finger of left thumb Vitamin D deficiency disease Surgical History Surgical History H/O cataract removal with insertion of prosthetic lens left eye H/O colonoscopy with polypectomy H/O: hysterectomy Family History Family History Mother Family history of lung cancer, Onset Age: 76 Sibling Diabetes mellitus Family history of cardiovascular disease Family history of malignant neoplasm of breast in first degree relative, Onset Age: 64 Father Hypertension Social History Social History (Reviewed 12/15/20 @
[2020-12-15] MEDS: PANTOPRAZOLE 40 MG TABLET PO (20:09)
[2020-12-15 22:40] LABS: Hematocrit 35.2 % (37.0-47.0); Hemoglobin 11.4 g/dL (12.0-15.0)
[2020-12-16] VITALS (7 sets, daily range): BP systolic 118–145; BP diastolic 76–89; PULSE 54–76; RESP 16–20; TEMP 36.3–36.9; O2SAT 98–100
[2020-12-16] MEDS: LACTATED RINGERS 1,000 ML 75 ML IV CONT ×2 (05:20→20:57)
[2020-12-16 06:15] LABS: Basophils Percent Auto 0.7 % (0.2-1.2); Eosinophils Absolute Auto 0.2 K/mm3 (0-0.3); Eosinophils Percent Auto 5.2 % (0-4.4); Hematocrit 32.4 % (37.0-47.0); Hemoglobin 10.5 g/dL (12.0-15.0); Immature Granulocyte Absolute 0.01 K/mm3 (0.00-0.031); Immature Granulocyte Percent A 0.2 % (0-0.5); Lymphocytes Absolute Auto 1.43 K/mm3 (0.9-3.2); Lymphocytes Percent Auto 32.3 % (18.3-44.2); Mean Corpuscular HGB Conc 32.4 g/dl (32-36); Mean Corpuscular Hemoglobin 29.8 pg (26-34); Mean Platelet Volume 10.5 fl (7.4-10.4); Monocytes Absolute Auto 0.4 K/mm3 (0.1-0.6); Monocytes Percent Auto 8.8 % (2.6-8.5); Neutrophils Absolute Auto 2.3 K/mm3 (1.3-6.7); Neutrophils Percent Auto 52.8 % (45.5-73.1); Platelet Count Result 190 k/mm3 (150-375); Red Blood Count 3.52 M/mm3 (4.2-5.4); Red Cell Distribution Width 14.8 % (11.5-14.5); White Blood Count 4.4 K/mm3 (4.5-10.0)
[2020-12-16 06:32] LABS: Anion Gap 4 mmol/L (8-16); Blood Urea Nitrogen 5 mg/dL (7-17); Calcium 8.5 mg/dL (8.4-10.2); Carbon Dioxide 30 mmol/L (22-30); Chloride 106 mmol/L (98-107); Estimated Glomerular Filt Rate > 60; Glucose 87 mg/dL (65-105); Lipase 321 U/L (23-300); Potassium 3.4 mmol/L (3.4-5.0); Sodium 140 mmol/L (137-145)
--- NOTE | 2020-12-16 08:02 | WPDANESEPPF ---
Anes - Initial Pre Proc Eval Procedure: Operation Date: 12/16/20 13:30 Proposed Procedures p Esophagogastroduodenoscopy - Lakhwinder Michaels MD Date/Time: 12/16/20 08:02 Surgeon: Rosita Ontiveros PA-C Pre Op Diagnosis: Acute Pancreatitis, UTI Patient Data Age: 70 Gender: F Height: 1.47 m Weight: 41.9 kg Last Vital Signs Temp 36.4 C L 12/16/20 05:49 Pulse 54 L 12/16/20 05:49 Resp 18 12/16/20 05:49 BP 129/76 12/16/20 05:49 Pulse Ox 99 12/16/20 05:49 Allergies Allergy/AdvReac Type Severity Reaction Status Date / Time caffeine AdvReac Severe VERY Verified 12/16/20 12:02 SENSITIVE, HAS RAPID HEART BEAT food Allergy Other Uncoded 12/16/20 12:02 Home Medications Medication Instructions Recorded Confirmed Type cholecalciferol (vitamin D3) 25 1,000 unit PO DAILY tablet 06/11/20 12/15/20 History mcg (1,000 unit) tablet famotidine [Pepcid] 20 mg PO DAILY #30 tablet 12/11/20 12/15/20 Rx polyethylene glycol 3350 [Miralax] 17 g PO QAM PRN 12/15/20 12/15/20 History Laboratory Tests 12/15/20 12/15/20 12/16/20 15:02 22:21 05:55 WBC 4.4 K/mm3 L K/mm3 (4.5-10.0) RBC 3.52 M/mm3 L M/mm3 (4.2-5.4) Hgb 10.5 g/dL L g/dL 11.4 g/dL L g/dL 10.5 g/dL L g/dL (12.0-15.0) (12.0-15.0) (12.0-15.0) Hct 32.4 % L % 35.2 % L % 32.4 % L % (37.0-47.0) (37.0-47.0) (37.0-47.0) MCV 92.0 fl fl (80-100) MCH 29.8 pg pg (26-34) MCHC 32.4 g/dl g/dl (32-36) RDW 14.8 % H % (11.5-14.5) Plt Count 190 k/mm3 k/mm3 (150-375) MPV 10.5 fl H fl (7.4-10.4) Immature Gran % (Auto) 0.2 % % (0-0.5) Neut % (Auto) 52.8 % % (45.5-73.1) Lymph % (Auto) 32.3 % % (18.3-44.2) [place] % (Auto) 8.8 % H % (2.6-8.5) Eos % (Auto) 5.2 % H % (0-4.4) Baso % (Auto) 0.7 % % (0.2-1.2) Lymph # (Auto) 1.43 K/mm3 K/mm3 (0.9-3.2) [place] # (Auto) 0.4 K/mm3 K/mm3 (0.1-0.6) Eos # (Auto) 0.2 K/mm3 K/mm3 (0-0.3) Baso # (Auto) 0.0 K/mm3 K/mm3 (0.0-0.1) Abs Immat Gran (auto) 0.01 K/mm3 K/mm3 (0.00-0.031) Absolute Neuts (auto) 2.3 K/mm3 K/mm3 (1.3-6.7) Absolute Nucleated RBC 0.0 K/mm3 K/mm3 (0.0-0.012) Nucleated RBC % 0.0 % % (0.0-0.2) Sodium Potassium Chloride Carbon Dioxide Anion Gap BUN Creatinine Estim Creat Clear Calc Estimated GFR Glucose Calcium Lipase 12/16/20 05:55 WBC RBC Hgb Hct MCV MCH MCHC RDW Plt Count MPV Immature Gran % (Auto) Neut % (Auto) Lymph % (Auto) [place] % (Auto) Eos % (Auto) Baso % (Auto) Lymph # (Auto) [place] # (Auto) Eos # (Auto) Baso # (Auto) Abs Immat Gran (auto) Absolute Neuts (auto) Absolute Nucleated RBC Nucleated RBC % Sodium 140 mmol/L mmol/L (137-145) Potassium 3.4 mmol/L mmol/L (3.4-5.0) Chloride 106 mmol/L mmol/L (98-107) Carbon Dioxide 30 mmol/L mmol/L (22-30) Anion Gap 4 mmol/L L mmol/L (8-16) BUN 5 mg/dL L D mg/dL (7-17) Creatinine 0.70 mg/dL mg/dL (0.7-1.0) Estim Creat Clear Calc Not Reportable Estimated GFR > 60 (59 - ) Glucose 87 mg/dL mg/dL (65-105) Calcium 8.5 mg/dL mg/dL (8.4-10.2) Lipase 321 U/L H U/L (23-300) Patient hx anesthesia problems: none Family hx anesthesia problems: none PMFSH Past Medical History Medical History Anxiety Fever Food additives allergy status GERD (gastroesophageal reflux disease) Headache Macular edema left eye Multiple food allergies Other screening mammogram
--- NOTE | 2020-12-16 11:47 | PC.NURSE ---
To GI lab per maty. IV #20 RT FA, SL. Report given via telephone to PATSY Hernandez @ [id number].
[2020-12-16] MEDS: LACTATED RINGERS 1,000 ML 150 ML IV CONT (12:11)
[2020-12-16] MEDS: SIMETHICONE ORAL SUSPENSION 20 MG/0.3 ML 30 ML BOTTLE 0.6 ML PO (13:12)
[2020-12-16] MEDS: PANTOPRAZOLE 40 MG TABLET PO ×2 (14:20→20:57)
--- NOTE | 2020-12-16 14:33 | PC.NURSE ---
Report from PATSY Mansfield @ [id number]. Patient return to room @ 3975.
--- NOTE | 2020-12-16 15:49 | PM.IMPN ---
Progress Note: A&P Assessment and Plan (1) Acute pancreatitis: Qualifiers: Acute pancreatitis complication: unspecified Pancreatitis type: other Qualified Code(s): K85.80 - Other acute pancreatitis without necrosis or infection Code(s): K85.90 - Acute pancreatitis without necrosis or infection, unspecified Status: Acute Assessment and Plan: CT shows progression of retroperitoneal, mesenteric, and periportal inflammation with small perihepatic and pericholecystic ascites, likely sequela from acute pancreatitis. LFTs reviewed and are unremarkable with the exception of mildly elevated AST at 47. MRCP and RUQ US at last hospitalization [place]. [place] [address] at presentation, improved today at 321. Tolerating clear liquids. Will place consult to gastroenterology given recurrence of acute pancreatitis EGD showed gastic ulcer and gastritis Continue clear liquid diet as tolerated Continue gentle IV fluids Analgesics and antiemetics available as needed. Trend lipase (2) Acute UTI: Code(s): N39.0 - Urinary tract infection, site not specified Status: Acute Assessment and Plan: Urinalysis abnormal at presentation and she is symptomatic. No fever or leukocytosis. Continue IV Rocephin Urine cultures showed growth of normal lyly indicating contamination No complaints of urinary dysfunction (3) Hematemesis: Code(s): K92.0 - Hematemesis Status: Acute Assessment and Plan: New onset hematemesis as of 12/14. No episodes today. Concern for duodenal ulcer vs carlos-anton tear given recent N/V. Appreciate gastroenterology consultation. EGD Today Switch to protonix BID (4) GERD (gastroesophageal reflux disease): Qualifiers: Esophagitis presence: without esophagitis Qualified Code(s): K21.9 - Gastro-esophageal reflux disease without esophagitis Code(s): K21.9 - Gastro-esophageal reflux disease without esophagitis Status: Acute Assessment and Plan: Currently asymptomatic but with new onset hematemesis Protonix bid as above (5) Normocytic anemia: Code(s): D64.9 - Anemia, unspecified Status: Acute Assessment and Plan: Hgb was 13.6 at presentation with decline down to 10.6. Suspect acute blood loss given recent hematemesis as noted above. Also suspect dilutional component given IV fluid hydration. Vital signs are stable and no evidence of ongoing blood loss Will repeat H&H this afternoon to ensure remaining stable. Transfuse as needed to stable Hgb >7.0 (6) Liver mass: Code(s): R16.0 - Hepatomegaly, not elsewhere classified Status: Acute Assessment and Plan: Hemangioma noted on CT a/p. This has been imaged previously with MRI in May 2020. Subjective Date/time seen: 12/16/20 15:49 Blanka Osborn is a 70 year old female with a history of GERD, anxiety, and recent hospitalization from 12/08-12/11 for pancreatitis who is seen in follow up for recurrent episode of pancreatitis. Patient is better today, however, she is complaining of being hungry but she had an EGD done today that showed gastritis and a gastric ulcer. Patient is to start on pantoprazole 40mg BID. Patient stated that she is having a little bit of pain but not as bad as before. She did say that she has not had a BM in 2-3 days, but stated that she thinks it is because she has not had anything to eat. She denies chest pain, shortness of breath, nausea, vomiting, numbness and tingling, headache, lightheadedness, dizziness, and syncope or falls. Review of Systems Review of Systems: All systems reviewed & are unremarkable except as noted in HPI and below Exam Const: General: cooperative, healthy appearing, no acute distress, well developed, alert and awake Nutritional Appearance: well nourished Orientation/consciousness: patient oriented x3 Limitations: no limitations HENMT: Head: kain
[2020-12-17 05:31] VITALS: BP 121/68; PULSE 84; RESP 20; TEMP 36.7; O2SAT 97
[2020-12-17 06:08] LABS: Basophils Percent Auto 0.6 % (0.2-1.2); Eosinophils Absolute Auto 0.2 K/mm3 (0-0.3); Eosinophils Percent Auto 4.3 % (0-4.4); Hematocrit 32.6 % (37.0-47.0); Immature Granulocyte Absolute 0.01 K/mm3 (0.00-0.031); Immature Granulocyte Percent A 0.2 % (0-0.5); Lymphocytes Percent Auto 33.1 % (18.3-44.2); Mean Corpuscular HGB Conc 33.7 g/dl (32-36); Mean Corpuscular Hemoglobin 30.1 pg (26-34); Mean Corpuscular Volume 89.1 fl (80-100); Mean Platelet Volume 10.5 fl (7.4-10.4); Monocytes Absolute Auto 0.4 K/mm3 (0.1-0.6); Monocytes Percent Auto 7.9 % (2.6-8.5); Neutrophils Absolute Auto 2.6 K/mm3 (1.3-6.7); Neutrophils Percent Auto 53.9 % (45.5-73.1); Platelet Count Result 215 k/mm3 (150-375); Red Blood Count 3.66 M/mm3 (4.2-5.4); Red Cell Distribution Width 14.5 % (11.5-14.5); White Blood Count 4.8 K/mm3 (4.5-10.0)
[2020-12-17 06:29] LABS: Alanine Aminotransferase 14 U/L (4-35); Albumin Level 2.9 g/dL (3.5-5.1); Alkaline Phosphatase 36 U/L (38-126); Anion Gap 4 mmol/L (8-16); Aspartate Amino Transferase 24 U/L (14-36); Bilirubin,Total 0.2 mg/dL (0.2-1.3); Blood Urea Nitrogen 5 mg/dL (7-17); Calcium 8.4 mg/dL (8.4-10.2); Carbon Dioxide 30 mmol/L (22-30); Chloride 105 mmol/L (98-107); Estimated Glomerular Filt Rate > 60; Glucose 87 mg/dL (65-105); Lipase 207 U/L (23-300); Potassium 3.5 mmol/L (3.4-5.0); Sodium 139 mmol/L (137-145)
[2020-12-17] MEDS: PANTOPRAZOLE 40 MG TABLET PO ×2 (08:38→20:50)
--- NOTE | 2020-12-17 10:40 | WPDGIPROGNO ---
Progress Note: A&P Assessment and Plan (1) Acute pancreatitis: Qualifiers: Acute pancreatitis complication: unspecified Pancreatitis type: other Qualified Code(s): K85.80 - Other acute pancreatitis without necrosis or infection Code(s): K85.90 - Acute pancreatitis without necrosis or infection, unspecified Status: Acute Assessment and Plan: Patient with acute pancreatitis. lipase improving. CT scan suggests some additional inflammation at the time of admission to the hospital plate. Plan to slowly advance diet. (2) Constipation: Code(s): K59.00 - Constipation, unspecified Status: Acute Assessment and Plan: Patient complains of constipation. She may benefit from suppositories to assess with bowel movements. Otherwise MiraLax is suggested when she can tolerate a diet. (3) Gastric peptic ulcer: Code(s): K25.9 - Gastric ulcer, unspecified as acute or chronic, without hemorrhage or perforation Status: Acute Assessment and Plan: Gastric ulcerations are newly identified since 6 months ago when she had her last EGD. Histology pending. Plan is to continue proton pump inhibitor pending histology. Follow-up EGD in 2 months is suggested if Ulcers are benign. Patient should avoid nonsteroidal anti-inflammatory agents. When she is able to tolerate a diet a bland diet would be preferred. (4) Acute UTI: Code(s): N39.0 - Urinary tract infection, site not specified Status: Acute Subjective Date/time seen: 12/17/20 10:40 Patient continues to note some epigastric discomfort. Complains of constipation. No bleeding described. Poor appetite. Review of Systems Review of Systems: All systems reviewed & are unremarkable except as noted in HPI and below Exam Narrative: Exam Narrative: Physical exam reveals her to be alert. HEENT exam reveals no icterus. Lungs are clear. Heart without murmur. Abdomen Flat scaphoid bowel sounds present mild epigastric tenderness. No masses noted. Objective Data Vital Signs Vital Signs: Vital Signs - 24 hr 12/16/20 12:07 12/16/20 13:21 12/16/20 13:31 Temperature 97.4 F L Pulse Rate 62 64 62 Respiratory Rate 16 20 18 Blood Pressure 145/80 H 132/88 141/89 H Pulse Oximetry 98 100 100 12/16/20 13:41 12/16/20 14:00 12/16/20 21:57 Temperature 98.2 F 98.5 F Pulse Rate 60 60 76 Respiratory Rate 18 18 18 Blood Pressure 130/87 142/84 H 118/78 Pulse Oximetry 100 100 98 12/17/20 05:31 Temperature 98.0 F Pulse Rate 84 Respiratory Rate 20 Blood Pressure 121/68 Pulse Oximetry 97 Intake/Output Intake/Output: Intake & Output 12/14/20 12/15/20 12/16/20 12/17/20 23:59 23:59 23:59 23:59 Intake Total 3560 3000 350 Output Total 1100 Balance 3560 1900 350 Meds/Results Medications: Active Medications Generic Name Dose Route Start Last Admin Trade Name Freq PRN Reason Stop Dose Admin Ceftriaxone Sodium/Dextrose 1 gm in 50 mls @ 100 mls/hr 12/15/20 21:00 12/16/20 21:27 Rocephin 1 Gm/D5w 50 Ml IVPB Infused HS SAMUEL Infusion Lactated Ringer's 1,000 mls @ 75 mls/hr 12/15/20 02:55 12/16/20 20:57 Lr - Lactated Ringers Iv IV CONT 75 mls/hr .[id number] SAMUEL Administration Ondansetron HCl 4 mg 12/15/20 01:23 Ondansetron Inj 4 Mg/2 Ml Vial IV PUSH Q4H PRN Nausea Pantoprazole Sodium 40 mg 12/15/20 21:00 12/17/20 08:38 Pantoprazole 40 Mg Tablet PO 40 mg Q12HR SAMUEL Administration Simethicone 0.6 ml 12/16/20 13:12 12/16/20 13:12 Simethicone Oral Suspension 20 Mg/0.3 Ml 30 Ml Bottle PO 0.6 ml ONCE PRN Administration Gas Discomfort Radiology Results: ITS Impressions Abdomen/Pelvis CT 12/15/20 08:48 IMPRESSION: 1. Progression of retroperitoneal, mesenteric, periportal inflammation. Small perihepatic, pericholecystic ascites. Probably sequela from acute pancreatitis. 2. Persistent transverse colonic wall edema, could be reactive from p
[2020-12-17 14:00] VITALS: BP 109/73; PULSE 71; RESP 16; TEMP 36.8; O2SAT 91
--- NOTE | 2020-12-17 15:01 | PM.IMPN ---
Progress Note: A&P Assessment and Plan (1) Acute pancreatitis: Qualifiers: Acute pancreatitis complication: unspecified Pancreatitis type: other Qualified Code(s): K85.80 - Other acute pancreatitis without necrosis or infection Code(s): K85.90 - Acute pancreatitis without necrosis or infection, unspecified Status: Acute Assessment and Plan: CT shows progression of retroperitoneal, mesenteric, and periportal inflammation with small perihepatic and pericholecystic ascites, likely sequela from acute pancreatitis. LFTs reviewed and are unremarkable with the exception of mildly elevated AST at 47. MRCP and RUQ US at last hospitalization [place]. [place] [address] at presentation, improved today at 207. Diet advanced to bland diet. Tolerating ok Will place consult to gastroenterology given recurrence of acute pancreatitis EGD showed gastic ulcer and gastritis Continue clear liquid diet as tolerated Continue gentle IV fluids Analgesics and antiemetics available as needed. Trend lipase (2) Acute UTI: Code(s): N39.0 - Urinary tract infection, site not specified Status: Acute Assessment and Plan: Urinalysis abnormal at presentation and she is symptomatic. No fever or leukocytosis. Continue IV Rocephin Urine cultures showed growth of normal lyly indicating contamination No complaints of urinary dysfunction (3) Hematemesis: Code(s): K92.0 - Hematemesis Status: Acute Assessment and Plan: New onset hematemesis as of 12/14. No episodes today. Concern for duodenal ulcer vs carlos-anton tear given recent N/V. Appreciate gastroenterology consultation. EGD Today Switch to protonix BID (4) GERD (gastroesophageal reflux disease): Qualifiers: Esophagitis presence: without esophagitis Qualified Code(s): K21.9 - Gastro-esophageal reflux disease without esophagitis Code(s): K21.9 - Gastro-esophageal reflux disease without esophagitis Status: Acute Assessment and Plan: Currently asymptomatic but with new onset hematemesis Protonix bid as above (5) Normocytic anemia: Code(s): D64.9 - Anemia, unspecified Status: Acute Assessment and Plan: Hgb was 13.6 at presentation with decline down to 10.6. Suspect acute blood loss given recent hematemesis as noted above. Also suspect dilutional component given IV fluid hydration. Vital signs are stable and no evidence of ongoing blood loss Will repeat H&H this afternoon to ensure remaining stable. Transfuse as needed to stable Hgb >7.0 (6) Liver mass: Code(s): R16.0 - Hepatomegaly, not elsewhere classified Status: Acute Assessment and Plan: Hemangioma noted on CT a/p. This has been imaged previously with MRI in May 2020. Subjective Date/time seen: 12/17/20 13:45 Blanka Osborn is a 70 year old female with a history of GERD, anxiety, and recent hospitalization from 12/08-12/11 for pancreatitis who is seen in follow up for recurrent episode of pancreatitis. Patient is better today, her diet was tolerated and she is tolerating it so-so. She did eat a good amount of the tray, but she did have episodes of nausea and felt that the food was coming back up. She did ask about more frequent small meals. It was explained that she would need to order the food that she wants then keep some of it back to eat later. She still has not had a bowel movement and she said that her pain is a bit worse today, which she described as cramping and rates it about a 6. She denies chest pain, shortness of breath, nausea, vomiting, numbness and tingling, headache, lightheadedness, dizziness, and syncope or falls. Review of Systems Review of Systems: All systems reviewed & are unremarkable except as noted in HPI and below Exam Const: General: cooperative, healthy appearing, comfortable, no acute distress, well developed, alert, awake
[2020-12-17] MEDS: polyethylene glycoL 3350 17 GM POWD.PACK PO (18:35)
[2020-12-17] MEDS: LACTATED RINGERS 1,000 ML 75 ML IV CONT (18:38)
[2020-12-17] MEDS: ONDANSETRON INJ 4 MG/2 ML VIAL IV PUSH (19:29)
[2020-12-17 22:00] VITALS: BP 112/82; PULSE 77; RESP 16; TEMP 36.7; O2SAT 99
[2020-12-18] MEDS: BELLADONNA ALK/PHENOB ELIX 10 ML, MAG HYDROX/ALUMINUM HYD/SIMETH 30 ML, LIDOCAINE HCL 2... PO (01:46)
[2020-12-18 06:00] VITALS: BP 124/72; PULSE 60; RESP 18; TEMP 36.8; O2SAT 100
[2020-12-18 06:07] LABS: Basophils Percent Auto 0.3 % (0.2-1.2); Eosinophils Absolute Auto 0.1 K/mm3 (0-0.3); Eosinophils Percent Auto 1.4 % (0-4.4); Hematocrit 33.6 % (37.0-47.0); Hemoglobin 11.2 g/dL (12.0-15.0); Immature Granulocyte Absolute 0.01 K/mm3 (0.00-0.031); Immature Granulocyte Percent A 0.2 % (0-0.5); Lymphocytes Absolute Auto 1.91 K/mm3 (0.9-3.2); Lymphocytes Percent Auto 29.1 % (18.3-44.2); Mean Corpuscular HGB Conc 33.3 g/dl (32-36); Mean Corpuscular Hemoglobin 29.9 pg (26-34); Mean Corpuscular Volume 89.6 fl (80-100); Mean Platelet Volume 10.3 fl (7.4-10.4); Monocytes Absolute Auto 0.4 K/mm3 (0.1-0.6); Monocytes Percent Auto 6.6 % (2.6-8.5); Neutrophils Absolute Auto 4.1 K/mm3 (1.3-6.7); Neutrophils Percent Auto 62.4 % (45.5-73.1); Platelet Count Result 231 k/mm3 (150-375); Red Blood Count 3.75 M/mm3 (4.2-5.4); Red Cell Distribution Width 14.6 % (11.5-14.5); White Blood Count 6.6 K/mm3 (4.5-10.0)
[2020-12-18 06:38] LABS: Alanine Aminotransferase 14 U/L (4-35); Albumin Level 3.3 g/dL (3.5-5.1); Alkaline Phosphatase 38 U/L (38-126); Anion Gap 7 mmol/L (8-16); Aspartate Amino Transferase 25 U/L (14-36); Bilirubin,Total 0.2 mg/dL (0.2-1.3); Blood Urea Nitrogen 10 mg/dL (7-17); Calcium 8.6 mg/dL (8.4-10.2); Carbon Dioxide 30 mmol/L (22-30); Chloride 104 mmol/L (98-107); Estimated Glomerular Filt Rate > 60; Glucose 96 mg/dL (65-105); Potassium 3.3 mmol/L (3.4-5.0); Sodium 141 mmol/L (137-145)
[2020-12-18 07:39] LABS: Lipase 4031 U/L (23-300)
[2020-12-18] MEDS: PANTOPRAZOLE 40 MG TABLET PO (08:29)
[2020-12-18] MEDS: LACTATED RINGERS 1,000 ML 75 ML IV CONT ×2 (08:32→21:31)
--- NOTE | 2020-12-18 11:14 | WPDGIPROGNO ---
Progress Note: A&P Assessment and Plan (1) Gastric ulcer: Code(s): K25.9 - Gastric ulcer, unspecified as acute or chronic, without hemorrhage or perforation Status: Acute Assessment and Plan: I discussed histology of the gastric ulcerations with pathology. Pathology reports cancer cells in this biopsy specimen. Additional stains to be performed to determine whether gastric primary versus metastatic disease. CT scan reveals progression of what appears to be pancreatitis. I wonder if this could really be tumor. She has had 3 CT scans over the last 6 months in new finding identified. No thickening in the upper part of the stomach where the ulcerations were identified. Plan is to seek consultation from Oncology. (2) Acute pancreatitis: Qualifiers: Acute pancreatitis complication: unspecified Pancreatitis type: other Qualified Code(s): K85.80 - Other acute pancreatitis without necrosis or infection Code(s): K85.90 - Acute pancreatitis without necrosis or infection, unspecified Status: Acute Assessment and Plan: Lipase elevated again this morning. Had normalized yesterday. This appears to correlate with patient's increased abdominal pain. (3) Acute UTI: Code(s): N39.0 - Urinary tract infection, site not specified Status: Acute Assessment and Plan: Patient remains on ceftriaxone antibiotic therapy (4) Constipation: Code(s): K59.00 - Constipation, unspecified Status: Acute Assessment and Plan: Patient has had some complaints of constipation. Bowel habits appear improved with current laxative therapy. Subjective Date/time seen: 12/18/20 1 Patient reports that additional pain throughout the night last night. Relieved with GI cocktail. Review of Systems Review of Systems: All systems reviewed & are unremarkable except as noted in HPI and below Exam Narrative: Exam Narrative: Physical exam reveals patient be alert. Abdomen is soft mild discomfort in the upper abdomen. No masses palpable. Objective Data Vital Signs Vital Signs: Vital Signs - 24 hr 12/17/20 14:00 12/17/20 22:00 12/18/20 06:00 Temperature 98.2 F 98.1 F 98.3 F Pulse Rate 71 77 60 Respiratory Rate 16 16 18 Blood Pressure 109/73 112/82 124/72 Pulse Oximetry 91 99 100 Intake/Output Intake/Output: Intake & Output 12/15/20 12/16/20 12/17/20 12/18/20 23:59 23:59 23:59 23:59 Intake Total 3560 3000 1840 1440 Output Total 1100 Balance 3560 1900 1840 1440 Meds/Results Medications: Active Medications Generic Name Dose Route Start Last Admin Trade Name Freq PRN Reason Stop Dose Admin Ceftriaxone Sodium/Dextrose 1 gm in 50 mls @ 100 mls/hr 12/15/20 21:00 12/17/20 21:21 Rocephin 1 Gm/D5w 50 Ml IVPB Infused HS SAMUEL Infusion Lactated Ringer's 1,000 mls @ 75 mls/hr 12/15/20 02:55 12/18/20 08:32 Lr - Lactated Ringers Iv IV CONT 75 mls/hr .[id number] SAMUEL Administration Ondansetron HCl 4 mg 12/15/20 01:23 12/17/20 19:29 Ondansetron Inj 4 Mg/2 Ml Vial IV PUSH 4 mg Q4H PRN Administration Nausea Pantoprazole Sodium 40 mg 12/15/20 21:00 12/18/20 08:29 Pantoprazole 40 Mg Tablet PO 40 mg Q12HR SAMUEL Administration Polyethylene Glycol 17 gm 12/17/20 10:48 12/17/20 18:35 Polyethylene Glycol 3350 17 Gm Powd.Pack PO 17 gm QAM PRN Administration Constipation Simethicone 0.6 ml 12/16/20 13:12 12/16/20 13:12 Simethicone Oral Suspension 20 Mg/0.3 Ml 30 Ml Bottle PO 0.6 ml ONCE PRN Administration Gas Discomfort Radiology Results: ITS Impressions Abdomen/Pelvis CT 12/15/20 08:48 IMPRESSION: 1. Progression of retroperitoneal, mesenteric, periportal inflammation. Small perihepatic, pericholecystic ascites. Probably sequela from acute pancreatitis. 2. Persistent transverse colonic wall edema, could be reactive from pancreatic inflammation or colitis. 3. Distended but otherwise unremarkable g
--- NOTE | 2020-12-18 11:24 | PCNFU ---
Nutrition Follow-Up Complete: Nutrition Diagnosis: Altered GI function related to stomach pains as evidenced by a diagnosis of acute pancreatitis. Nutrition Goal: Have patient meet estimated nutritional needs. Goal is in progress, patient is currently trying to find foods that does not upset her stomach. Nutrition recommendation: Continue easing into the [place], Low Fiber diet. Recommend trying the Ensure clear once per day. Last recorded weight is 41.9 kg. Bowel Motility: Last documented on 12/15. Labs Reviewed: Hgb (11.2), Hct (33.6), Alb (3.3), K (3.3) Meds Noted: Miralax, Protonix, Simethicone, Lactated Ringer @75, Zofran Additional Notes: Skin is within normal limits, no causes of concern documented. Patient has been on the [place] diet since yesterday (12/17) and dinner did not go well. Patient has had stomach issues and pain since. Patient did not eat breakfast today, she will try having some food for lunch. Recommend trying the Ensure clear (240 calories and 8 grams of protein) once per day. Will follow up in 5 days.
--- NOTE | 2020-12-18 11:43 | PCNSR ---
On 12/18/20, the student, Venessa Maddox, provided care and completed [facility] documentation on this patient. I have reviewed the student's documentation and agree with the findings.
--- NOTE | 2020-12-18 12:18 | PM.IMPN ---
Progress Note: A&P Assessment and Plan (1) Acute pancreatitis: Qualifiers: Acute pancreatitis complication: unspecified Pancreatitis type: other Qualified Code(s): K85.80 - Other acute pancreatitis without necrosis or infection Code(s): K85.90 - Acute pancreatitis without necrosis or infection, unspecified Status: Acute Assessment and Plan: CT shows progression of retroperitoneal, mesenteric, and periportal inflammation with small perihepatic and pericholecystic ascites, likely sequela from acute pancreatitis. LFTs reviewed and are unremarkable with the exception of mildly elevated AST at 25. MRCP and RUQ US at last hospitalization [place]. [place] [address] consult to gastroenterology given recurrence of acute pancreatitis EGD showed gastic ulcer and gastritis Lipase is back up to [address] patient back to NPO Continue gentle IV fluids Analgesics and antiemetics available as needed. Trend lipase (2) Acute UTI: Code(s): N39.0 - Urinary tract infection, site not specified Status: Acute Assessment and Plan: Urinalysis abnormal at presentation and she is symptomatic. No fever or leukocytosis. Continue IV Rocephin Urine cultures showed growth of normal lyly indicating contamination No complaints of urinary dysfunction (3) Hematemesis: Code(s): K92.0 - Hematemesis Status: Acute Assessment and Plan: New onset hematemesis as of 12/14. No episodes today. Concern for duodenal ulcer vs carlos-anton tear given recent N/V. Appreciate gastroenterology consultation. EGD Today Switch to protonix BID (4) GERD (gastroesophageal reflux disease): Qualifiers: Esophagitis presence: without esophagitis Qualified Code(s): K21.9 - Gastro-esophageal reflux disease without esophagitis Code(s): K21.9 - Gastro-esophageal reflux disease without esophagitis Status: Acute Assessment and Plan: Currently asymptomatic but with new onset hematemesis Protonix bid as above (5) Normocytic anemia: Code(s): D64.9 - Anemia, unspecified Status: Acute Assessment and Plan: Hgb was 13.6 at presentation with decline down to 10.6. Suspect acute blood loss given recent hematemesis as noted above. Also suspect dilutional component given IV fluid hydration. Vital signs are stable and no evidence of ongoing blood loss Will repeat H&H this afternoon to ensure remaining stable. Transfuse as needed to stable Hgb >7.0 (6) Liver mass: Code(s): R16.0 - Hepatomegaly, not elsewhere classified Status: Acute Assessment and Plan: Hemangioma noted on CT a/p. This has been imaged previously with MRI in May 2020. (7) Stomach cancer: Code(s): C16.9 - Malignant neoplasm of stomach, unspecified Status: Acute Assessment and Plan: Biopsy and pathology found possible cancer cells Dr. Green consulted thank you Pathology still pending Subjective Date/time seen: 12/18/20 11:45 Blanka Osborn is a 70 year old female with a history of GERD, anxiety, and recent hospitalization from 12/08-12/11 for pancreatitis who is seen in follow up for recurrent episode of pancreatitis. Patient stated that she had a rough night. She stated that she was up vomiting, and was very nauseous throughout the night. She said that it was yellow and all of the food that she ate. She also stated that she still has not had a bowel movement. The oxygen therapy teacher did order her a GI cocktail which she did get. She did say that it helped a little bit. She also stated that she is having pain in her stomach that she rated about a 7 that was crampy in nature. She did say that her appetite is declining and that she has lost a lot of weight since she has been in the hospital for all this time. Her stated that she has lived a healthy lifestyle for all of her life an
[2020-12-18] MEDS: BISACODYL 5 MG TABLET EC PO (12:30)
[2020-12-18] MEDS: POTASSIUM CHLORIDE 20 MEQ TABLET 40 MEQ PO (12:31)
--- NOTE | 2020-12-18 12:39 | PDONCCN ---
HPI - Date of Consult Date/Time: 12/18/20 12:39 Requesting Physician: DEVON Barros Primary Care Provider: Robert Aguirre MD - Consult Narrative Reason for consult: Likely gastric cancer Narrative: Blanka Osborn is a 70 year old female who has a migraine from [place] and had been in good health except history of gastro oesophageal reflux disease. Patient has been dealing with 6 months history of heartburn. She was taking omeprazole was today without much relief in her symptoms. She has been eating poorly due to heartburn and lost maybe 5-10 lb weight. She also has some constipation and abdominal discomfort. CT scan done on December 15 showed progression of retroperitoneal, mesenteric and periportal inflammation and small perihepatic ascites. These findings were worrisome for acute pancreatitis. Serum lipase was found to be elevated. EGD was performed on December 15 that showed multiple superficial acute ulceration in the gastric cardia and the body of the stomach. Biopsies were taken and pathology is pending. Review of Systems - Review of Systems All systems reviewed & are unremarkable except as noted in HPI and bel - Neurologic Reports system reviewed and no additional complaints, except as documented PMFSH Medical History: Medical History (Last Reviewed 12/15/20 @ 16:14 by Lakhwinder Michaels MD) Anxiety Fever Food additives allergy status GERD (gastroesophageal reflux disease) Headache Macular edema left eye Multiple food allergies Other screening mammogram Palpitations Throat pain Trigger finger of left thumb Vitamin D deficiency disease Surgical History: Surgical History (Last Reviewed 12/15/20 @ 00:42 by Nacho Francis MD) H/O cataract removal with insertion of prosthetic lens left eye H/O colonoscopy with polypectomy H/O: hysterectomy Family History: Family History (Last Reviewed 12/15/20 @ 02:54 by Flower Gonzalez RN) Mother Family history of lung cancer, Onset Age: 76 Sibling Diabetes mellitus Family history of cardiovascular disease Family history of malignant neoplasm of breast in first degree relative, Onset Age: 64 Father Hypertension - Social History Social History: Social History (Last Reviewed 12/15/20 @ 00:42 by Nacho Francis MD) Gender Identity: Gender identity (if verbalized by the patient): Female Alcohol Use: Alcohol intake: never Substance Use: Substance use: never Others: Spiritual care concerns: No Smoking Status: Smoking status: Former smoker Tobacco type: cigarettes Smoking Pack-years: Smoking packs per day: 1 Smoking cigarettes per day: 20.0 Years smoked: 10 Smoking pack-years: 10.00 Comments: Additional smoking assessment comments: quit 25 years ago Meds Home Medications Medication Instructions Recorded Confirmed Type cholecalciferol (vitamin D3) 25 1,000 unit PO DAILY tablet 06/11/20 12/15/20 History mcg (1,000 unit) tablet famotidine [Pepcid] 20 mg PO DAILY #30 tablet 12/11/20 12/15/20 Rx polyethylene glycol 3350 [Miralax] 17 g PO QAM PRN 12/15/20 12/15/20 History Allergies Allergy/AdvReac Type Severity Reaction Status Date / Time caffeine AdvReac Severe VERY Verified 12/16/20 12:02 SENSITIVE, HAS RAPID HEART BEAT food Allergy Other Uncoded 12/16/20 12:02 Results - Labs CBC & Chem 7: 12/18/20 05:31 12/18/20 05:31 Labs: Short CBC 12/18/20 Range/Units 05:31 WBC 6.6 (4.5-10.0) K/mm3 Hgb 11.2 L (12.0-15.0) g/dL Hct 33.6 L (37.0-47.0) % Plt Count 231 (150-375) k/mm3 BMP 12/18/20 05:31 Sodium 141 Potassium 3.3 L Chloride 104 Carbon Dioxide 30 BUN 10 D Creatinine 0.70 Glucose 96 Calcium 8.6 Liver Function 12/18/20 Range/Units 05:31 Total Bilirubin 0.2 (0.2-1.3) mg/dL AST 25 (14-36) U/L ALT 14 (4-35) U/L Alkaline Phosphat
[2020-12-18 14:00] VITALS: BP 109/79; PULSE 64; RESP 20; TEMP 37.1; O2SAT 97
[2020-12-18] MEDS: PANTOPRAZOLE SODIUM IV 40 MG VIAL IV PUSH (21:31)
[2020-12-18 21:58] VITALS: BP 132/80; PULSE 56; RESP 16; TEMP 36.9; O2SAT 100
[2020-12-19 06:00] VITALS: BP 121/77; PULSE 60; RESP 14; TEMP 36.6; O2SAT 100
[2020-12-19] MEDS: PANTOPRAZOLE SODIUM IV 40 MG VIAL IV PUSH ×2 (08:05→23:27)
[2020-12-19 08:48] LABS: Hematocrit 35.8 % (37.0-47.0); Hemoglobin 11.5 g/dL (12.0-15.0); Mean Corpuscular HGB Conc 32.1 g/dl (32-36); Mean Corpuscular Hemoglobin 29.6 pg (26-34); Mean Platelet Volume 10.4 fl (7.4-10.4); Platelet Count Result 225 k/mm3 (150-375); Red Blood Count 3.89 M/mm3 (4.2-5.4); Red Cell Distribution Width 14.7 % (11.5-14.5)
[2020-12-19 08:58] LABS: Alanine Aminotransferase 18 U/L (4-35); Albumin Level 3.3 g/dL (3.5-5.1); Alkaline Phosphatase 44 U/L (38-126); Anion Gap 10 mmol/L (8-16); Aspartate Amino Transferase 34 U/L (14-36); Bilirubin,Total 0.5 mg/dL (0.2-1.3); Blood Urea Nitrogen 9 mg/dL (7-17); Calcium 8.5 mg/dL (8.4-10.2); Carbon Dioxide 24 mmol/L (22-30); Chloride 104 mmol/L (98-107); Estimated Glomerular Filt Rate > 60; Glucose 60 mg/dL (65-105); Lipase 282 U/L (23-300); Potassium 3.9 mmol/L (3.4-5.0); Sodium 138 mmol/L (137-145)
--- NOTE | 2020-12-19 09:28 | P.PNIM_ITS ---
Progress Note: A&P Assessment and Plan (1) Acute pancreatitis: Qualifiers: Acute pancreatitis complication: unspecified Pancreatitis type: other Qualified Code(s): K85.80 - Other acute pancreatitis without necrosis or infection Code(s): K85.90 - Acute pancreatitis without necrosis or infection, unspecified Status: Acute Assessment and Plan: CT shows progression of retroperitoneal, mesenteric, and periportal inflammation with small perihepatic and pericholecystic ascites, likely sequela from acute pancreatitis. LFTs reviewed and are unremarkable with the exception of mildly elevated AST at 25. MRCP and RUQ US at last hospitalization [place] [address] at presentation. * Will place consult to gastroenterology given recurrence of acute pancreatitis * EGD showed gastic ulcer and gastritis * Lipase has decreased to 282 * Will place patient back to clear liquids * Continue gentle IV fluids * Analgesics and antiemetics available as needed. * Trend lipase (2) Acute UTI: Code(s): N39.0 - Urinary tract infection, site not specified Status: Acute Assessment and Plan: Urinalysis abnormal at presentation and she is symptomatic. No fever or leukocytosis. * Continue IV Rocephin day 4, will consider stopping tomorrow as she will have completed a five day course * Urine cultures showed growth of normal lyly indicating contamination * No complaints of urinary dysfunction (3) Hematemesis: Code(s): K92.0 - Hematemesis Status: Acute Assessment and Plan: New onset hematemesis as of 12/14. No episodes today. Concern for duodenal ulcer vs carlos-anton tear given recent N/V. * Appreciate gastroenterology consultation. * EGD Today * Switch to protonix BID (4) GERD (gastroesophageal reflux disease): Qualifiers: Esophagitis presence: without esophagitis Qualified Code(s): K21.9 - Gastro-esophageal reflux disease without esophagitis Code(s): K21.9 - Gastro-esophageal reflux disease without esophagitis Status: Acute Assessment and Plan: Currently asymptomatic but with new onset hematemesis * Protonix bid as above (5) Normocytic anemia: Code(s): D64.9 - Anemia, unspecified Status: Acute Assessment and Plan: Hgb was 13.6 at presentation with decline down to 10.6. Suspect acute blood loss given recent hematemesis as noted above. Also suspect dilutional component given IV fluid hydration. Vital signs are stable and no evidence of ongoing blood loss * Will repeat H&H this afternoon to ensure remaining stable. * Transfuse as needed to stable Hgb >7.0 (6) Liver mass: Code(s): R16.0 - Hepatomegaly, not elsewhere classified Status: Acute Assessment and Plan: Hemangioma noted on CT a/p. This has been imaged previously with MRI in May 2020. (7) Stomach cancer: Code(s): C16.9 - Malignant neoplasm of stomach, unspecified Status: Acute Assessment and Plan: * Biopsy and pathology found possible cancer cells * Dr. Green consulted thank you * Pathology still pending (8) Coping style affecting medical condition: Code(s): F54 - Psychological and behavioral factors associated with disorders or diseases classified elsewhere Status: Acute Assessment and Plan: * Patient was found to be crying yesterday * Lipase tending up * Wants to be transferred to [facility] * Pt not getting any sleep
--- NOTE | 2020-12-19 09:28 | PM.IMPN ---
Progress Note: A&P Assessment and Plan (1) Acute pancreatitis: Qualifiers: Acute pancreatitis complication: unspecified Pancreatitis type: other Qualified Code(s): K85.80 - Other acute pancreatitis without necrosis or infection Code(s): K85.90 - Acute pancreatitis without necrosis or infection, unspecified Status: Acute Assessment and Plan: CT shows progression of retroperitoneal, mesenteric, and periportal inflammation with small perihepatic and pericholecystic ascites, likely sequela from acute pancreatitis. LFTs reviewed and are unremarkable with the exception of mildly elevated AST at 25. MRCP and RUQ US at last hospitalization [place] [address] consult to gastroenterology given recurrence of acute pancreatitis EGD showed gastic ulcer and gastritis Lipase has decreased to [address] patient back to clear liquids Continue gentle IV fluids Analgesics and antiemetics available as needed. Trend lipase (2) Acute UTI: Code(s): N39.0 - Urinary tract infection, site not specified Status: Acute Assessment and Plan: Urinalysis abnormal at presentation and she is symptomatic. No fever or leukocytosis. Continue IV Rocephin day 4, will consider stopping tomorrow as she will have completed a five day course Urine cultures showed growth of normal lyly indicating contamination No complaints of urinary dysfunction (3) Hematemesis: Code(s): K92.0 - Hematemesis Status: Acute Assessment and Plan: New onset hematemesis as of 12/14. No episodes today. Concern for duodenal ulcer vs carlos-anton tear given recent N/V. Appreciate gastroenterology consultation. EGD Today Switch to protonix BID (4) GERD (gastroesophageal reflux disease): Qualifiers: Esophagitis presence: without esophagitis Qualified Code(s): K21.9 - Gastro-esophageal reflux disease without esophagitis Code(s): K21.9 - Gastro-esophageal reflux disease without esophagitis Status: Acute Assessment and Plan: Currently asymptomatic but with new onset hematemesis Protonix bid as above (5) Normocytic anemia: Code(s): D64.9 - Anemia, unspecified Status: Acute Assessment and Plan: Hgb was 13.6 at presentation with decline down to 10.6. Suspect acute blood loss given recent hematemesis as noted above. Also suspect dilutional component given IV fluid hydration. Vital signs are stable and no evidence of ongoing blood loss Will repeat H&H this afternoon to ensure remaining stable. Transfuse as needed to stable Hgb >7.0 (6) Liver mass: Code(s): R16.0 - Hepatomegaly, not elsewhere classified Status: Acute Assessment and Plan: Hemangioma noted on CT a/p. This has been imaged previously with MRI in May 2020. (7) Stomach cancer: Code(s): C16.9 - Malignant neoplasm of stomach, unspecified Status: Acute Assessment and Plan: Biopsy and pathology found possible cancer cells Dr. Green consulted thank you Pathology still pending (8) Coping style affecting medical condition: Code(s): F54 - Psychological and behavioral factors associated with disorders or diseases classified elsewhere Status: Acute Assessment and Plan: Patient was found to be crying yesterday Lipase tending up Wants to be transferred to [facility] not getting any sleep Subjective Date/time seen: 12/19/20 08:15 Interval history: Date of service: 12/15/20 Blanka Osborn is a 70 year old female with a history of GERD, anxiety, and recent hospitalization from 12/08-12/11 for pancreatitis who is seen in follow up for recurrent episode of pancreatitis. Today she stated that she is doing better. She did not have any episodes of nausea or vomiting over night. She did state that she was having some pain in the lower abdomen. She also s
[2020-12-19 10:29] LABS: Glucose Point of Care 60 mg/dl (65-105)
--- NOTE | 2020-12-19 10:52 | WPDGIPROGNO ---
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 Appreciate Oncology input. Patient has less pain with current medications plan is to continue PPI and Carafate. Advance diet as tolerated. Discharge with oncology follow-up. (2) Acute pancreatitis: Qualifiers: Acute pancreatitis complication: unspecified Pancreatitis type: other Qualified Code(s): K85.80 - Other acute pancreatitis without necrosis or infection Code(s): K85.90 - Acute pancreatitis without necrosis or infection, unspecified Status: Acute Assessment and Plan: Patient with acute pancreatitis. She appears to have had several relapses over last several months. Agree with CA 19-9 level. We want to ensure this is not related to her carcinoma. Lipase normal again today. Hopefully we can advance diet. (3) Acute UTI: Code(s): N39.0 - Urinary tract infection, site not specified Status: Acute Assessment and Plan: Patient treated with antibiotics no residual symptoms noted. (4) Constipation: Code(s): K59.00 - Constipation, unspecified Status: Acute Assessment and Plan: Patient has had some constipation recently stool softeners MiraLax suggested as needed. Subjective Date/time seen: 12/19/20 10:52 Patient states that abdominal pain has improved today. Has started clear liquid diet. She would like to advance diet as tolerated. Review of Systems Review of Systems: All systems reviewed & are unremarkable except as noted in HPI and below Exam Narrative: Exam Narrative: Physical exam patient is alert comfortable sitting in bed. HEENT exam reveals no icterus. Lungs are clear. Heart without murmur. Abdomen bowel sounds present soft nontender no organomegaly evident. Objective Data Vital Signs Vital Signs: Vital Signs - 24 hr 12/18/20 14:00 12/18/20 21:58 12/19/20 06:00 Temperature 98.7 F 98.4 F 98 F Pulse Rate 64 56 L 60 Respiratory Rate 20 16 14 Blood Pressure 109/79 132/80 121/77 Pulse Oximetry 97 100 100 Intake/Output Intake/Output: Intake & Output 12/16/20 12/17/20 12/18/20 12/19/20 23:59 23:59 23:59 23:59 Intake Total 3000 1840 3065 0 Output Total 1100 780 Balance 1900 1840 2285 0 Meds/Results Medications: Active Medications Generic Name Dose Route Start Last Admin Trade Name Freq PRN Reason Stop Dose Admin Ceftriaxone Sodium/Dextrose 1 gm in 50 mls @ 100 mls/hr 12/15/20 21:00 12/18/20 22:01 Rocephin 1 Gm/D5w 50 Ml IVPB Infused HS SAMUEL Infusion Lactated Ringer's 1,000 mls @ 75 mls/hr 12/15/20 02:55 12/18/20 21:31 Lr - Lactated Ringers Iv IV CONT 75 mls/hr .[id number] SAMUEL Administration Ondansetron HCl 4 mg 12/15/20 01:23 12/17/20 19:29 Ondansetron Inj 4 Mg/2 Ml Vial IV PUSH 4 mg Q4H PRN Administration Nausea Pantoprazole Sodium 40 mg 12/18/20 21:00 12/19/20 08:05 Pantoprazole Sodium Iv 40 Mg Vial IV PUSH 40 mg Q12HR SAMUEL Administration Simethicone 0.6 ml 12/16/20 13:12 12/16/20 13:12 Simethicone Oral Suspension 20 Mg/0.3 Ml 30 Ml Bottle PO 0.6 ml ONCE PRN Administration Gas Discomfort Radiology Results: ITS Impressions Abdomen/Pelvis CT 12/15/20 08:48 IMPRESSION: 1. Progression of retroperitoneal, mesenteric, periportal inflammation. Small perihepatic, pericholecystic ascites. Probably sequela from acute pancreatitis. 2. Persistent transverse colonic wall edema, could be reactive from pancreatic inflammation or colitis. 3. Distended but otherwise unremarkable gallbladder. 4. Distended stomach with gastroesophageal reflux, esophagitis. 5. Liver hemangioma. Labs Labs: Laboratory Results - last 24 hr 12/19/20 12/19/20 12/19/20 08:21 08:21 10:27 WBC 6.0 RBC 3.89 L Hgb 11.5 L Hct 35.8
[2020-12-19] MEDS: DEXTROSE 50% 25 GM/50 ML SYRINGE IV PUSH (11:39)
[2020-12-19 12:43] LABS: Glucose Point of Care 175 mg/dl (65-105)
[2020-12-19 14:00] VITALS: BP 123/76; PULSE 73; RESP 14; TEMP 36.4; O2SAT 98
[2020-12-19] MEDS: LACTATED RINGERS 1,000 ML 75 ML IV CONT (15:14)
[2020-12-19 21:00] VITALS: PULSE 59; RESP 18; O2SAT 100
[2020-12-19 22:00] VITALS: BP 126/76; PULSE 59; RESP 18; TEMP 36.7; O2SAT 100
[2020-12-20 05:46] VITALS: BP 124/77; PULSE 60; RESP 18; TEMP 36.7; O2SAT 99
[2020-12-20 06:11] LABS: Hematocrit 32.9 % (37.0-47.0); Hemoglobin 10.7 g/dL (12.0-15.0); Mean Corpuscular HGB Conc 32.5 g/dl (32-36); Mean Corpuscular Hemoglobin 29.3 pg (26-34); Mean Corpuscular Volume 90.1 fl (80-100); Mean Platelet Volume 10.2 fl (7.4-10.4); Platelet Count Result 214 k/mm3 (150-375); Red Blood Count 3.65 M/mm3 (4.2-5.4); Red Cell Distribution Width 14.6 % (11.5-14.5); White Blood Count 5.5 K/mm3 (4.5-10.0)
[2020-12-20 06:22] LABS: Alanine Aminotransferase 15 U/L (4-35); Albumin Level 2.9 g/dL (3.5-5.1); Alkaline Phosphatase 38 U/L (38-126); Anion Gap 6 mmol/L (8-16); Aspartate Amino Transferase 26 U/L (14-36); Bilirubin,Total 0.2 mg/dL (0.2-1.3); Blood Urea Nitrogen 5 mg/dL (7-17); Calcium 8.3 mg/dL (8.4-10.2); Carbon Dioxide 27 mmol/L (22-30); Chloride 105 mmol/L (98-107); Estimated Glomerular Filt Rate > 60; Glucose 86 mg/dL (65-105); Lipase 204 U/L (23-300); Potassium 3.6 mmol/L (3.4-5.0); Sodium 138 mmol/L (137-145)
[2020-12-20] MEDS: PANTOPRAZOLE SODIUM IV 40 MG VIAL IV PUSH ×2 (07:53→21:54)
[2020-12-20 08:00] VITALS: O2SAT 100
--- NOTE | 2020-12-20 09:20 | WPDGIPROGNO ---
Progress Note: A&P Assessment and Plan (1) Stomach cancer: Code(s): C16.9 - Malignant neoplasm of stomach, unspecified Status: Acute Assessment and Plan: she is aware of the diagnosis of gastric cancer. Awaiting follow-up of Oncology input (2) Acute pancreatitis: Qualifiers: Acute pancreatitis complication: unspecified Pancreatitis type: other Qualified Code(s): K85.80 - Other acute pancreatitis without necrosis or infection Code(s): K85.90 - Acute pancreatitis without necrosis or infection, unspecified Status: Acute Assessment and Plan: her lipase remains normal. She is not having any pain this morning that is new. She wants to be cautious about advancing her diet Subjective Date/time seen: 12/20/20 09:20 She is feeling pretty good today. Last night his stomach was upset and she did not want to eat. She is going to try clear liquids this morning. I asked her about advancing the diet she would like to try full liquids this evening. Denies any new abdominal pain or other symptoms Review of Systems Review of Systems: All systems reviewed & are unremarkable except as noted in HPI and below Exam Const: General: cooperative and alert GI: GI Palp: No abdominal tenderness and Yes Soft to palpation Objective Data Vital Signs Vital Signs: Vital Signs - 24 hr 12/19/20 14:00 12/19/20 21:00 12/19/20 22:00 Temperature 36.4 C 36.7 C Pulse Rate 73 59 L 59 L Respiratory Rate 14 18 18 Blood Pressure 123/76 126/76 Pulse Oximetry 98 100 100 12/20/20 05:46 Temperature 36.7 C Pulse Rate 60 Respiratory Rate 18 Blood Pressure 124/77 Pulse Oximetry 99 Intake/Output Intake/Output: Intake & Output 12/17/20 12/18/20 12/19/20 12/20/20 23:59 23:59 23:59 23:59 Intake Total 1840 3065 1720 1250 Output Total 780 Balance 1840 2285 1720 1250 Meds/Results Medications: Active Medications Generic Name Dose Route Start Last Admin Trade Name Freq PRN Reason Stop Dose Admin Ceftriaxone Sodium/Dextrose 1 gm in 50 mls @ 100 mls/hr 12/15/20 21:00 12/20/20 00:05 Rocephin 1 Gm/D5w 50 Ml IVPB Infused HS SAMUEL Infusion Lactated Ringer's 1,000 mls @ 75 mls/hr 12/15/20 02:55 12/20/20 07:53 Lr - Lactated Ringers Iv IV CONT 75 mls/hr .[id number] SAMUEL Administration Ondansetron HCl 4 mg 12/15/20 01:23 12/17/20 19:29 Ondansetron Inj 4 Mg/2 Ml Vial IV PUSH 4 mg Q4H PRN Administration Nausea Pantoprazole Sodium 40 mg 12/18/20 21:00 12/20/20 07:53 Pantoprazole Sodium Iv 40 Mg Vial IV PUSH 40 mg Q12HR SAMUEL Administration Simethicone 0.6 ml 12/16/20 13:12 12/16/20 13:12 Simethicone Oral Suspension 20 Mg/0.3 Ml 30 Ml Bottle PO 0.6 ml ONCE PRN Administration Gas Discomfort Radiology Results: ITS Impressions Abdomen/Pelvis CT 12/15/20 08:48 IMPRESSION: 1. Progression of retroperitoneal, mesenteric, periportal inflammation. Small perihepatic, pericholecystic ascites. Probably sequela from acute pancreatitis. 2. Persistent transverse colonic wall edema, could be reactive from pancreatic inflammation or colitis. 3. Distended but otherwise unremarkable gallbladder. 4. Distended stomach with gastroesophageal reflux, esophagitis. 5. Liver hemangioma. Labs Labs: Laboratory Results - last 24 hr 12/19/20 12/19/20 12/20/20 10:27 12:40 05:49 WBC 5.5 RBC 3.65 L Hgb 10.7 L Hct 32.9 L MCV 90.1 MCH 29.3 MCHC 32.5 RDW 14.6 H Plt Count 214 MPV 10.2 Sodium Potassium Chloride Carbon Dioxide Anion Gap BUN Creatinine Estim Creat Clear Calc Estimated GFR Glucose POC Capillary Glucose 60 L 175 H Calcium Total Bilirubin AST ALT Alkaline Phosphatase Total Protein Albumin Lipase 12/20/20 05:49 WBC RBC Hgb Hct MCV MCH MCHC RDW Plt Count MPV Sodium 138 Potassium 3.6 Chloride 105
--- NOTE | 2020-12-20 12:52 | P.PNIM_ITS ---
Progress Note: A&P Assessment and Plan (1) Acute pancreatitis: Qualifiers: Acute pancreatitis complication: unspecified Pancreatitis type: other Qualified Code(s): K85.80 - Other acute pancreatitis without necrosis or infection Code(s): K85.90 - Acute pancreatitis without necrosis or infection, unspecified Status: Acute Assessment and Plan: CT shows progression of retroperitoneal, mesenteric, and periportal inflammation with small perihepatic and pericholecystic ascites, likely sequela from acute pancreatitis. LFTs reviewed and are unremarkable with the exception of mildly elevated AST at 25. MRCP and RUQ US at last hospitalization [place] [address] at presentation. * Will place consult to gastroenterology given recurrence of acute pancreatitis * EGD showed gastic ulcer and gastritis * Lipase has decreased to 204 * Will place patient back to clear liquids and advance to full liquids for lunch * Fluids on hold for now * Analgesics and antiemetics available as needed. (2) Acute UTI: Code(s): N39.0 - Urinary tract infection, site not specified Status: Acute Assessment and Plan: Urinalysis abnormal at presentation and she is symptomatic. No fever or leukocytosis. * Continue IV Rocephin day 5, Will DC today * Patient has no complaints of burning or pain when urinating * Urine cultures showed growth of normal lyly indicating contamination * No complaints of urinary dysfunction (3) Hematemesis: Code(s): K92.0 - Hematemesis Status: Acute Assessment and Plan: New onset hematemesis as of 12/14. No episodes today. Concern for duodenal ulcer vs carlos-anton tear given recent N/V. * Appreciate gastroenterology consultation. * EGD Today * Switch to protonix BID (4) GERD (gastroesophageal reflux disease): Qualifiers: Esophagitis presence: without esophagitis Qualified Code(s): K21.9 - Gastro-esophageal reflux disease without esophagitis Code(s): K21.9 - Gastro-esophageal reflux disease without esophagitis Status: Acute Assessment and Plan: Currently asymptomatic but with new onset hematemesis * Protonix bid as above (5) Normocytic anemia: Code(s): D64.9 - Anemia, unspecified Status: Acute Assessment and Plan: Hgb was 13.6 at presentation with decline down to 10.6. Suspect acute blood loss given recent hematemesis as noted above. Also suspect dilutional component given IV fluid hydration. Vital signs are stable and no evidence of ongoing blood loss * Will repeat H&H this afternoon to ensure remaining stable. * Transfuse as needed to stable Hgb >7.0 (6) Liver mass: Code(s): R16.0 - Hepatomegaly, not elsewhere classified Status: Acute Assessment and Plan: Hemangioma noted on CT a/p. This has been imaged previously with MRI in May 2020. (7) Stomach cancer: Code(s): C16.9 - Malignant neoplasm of stomach, unspecified Status: Acute Assessment and Plan: * Biopsy and pathology found possible cancer cells * Dr. rGeen consulted thank you * Pathology still pending (8) Coping style affecting medical condition: Code(s): F54 - Psychological and behavioral factors associated with disorders or diseases classified elsewhere Status: Acute Assessment and Plan: * Wants to be transferred to [place] for a second opinion. Due to the cancer cells that were found * Pt not getting any sleep
--- NOTE | 2020-12-20 12:52 | PM.IMPN ---
Progress Note: A&P Assessment and Plan (1) Acute pancreatitis: Qualifiers: Acute pancreatitis complication: unspecified Pancreatitis type: other Qualified Code(s): K85.80 - Other acute pancreatitis without necrosis or infection Code(s): K85.90 - Acute pancreatitis without necrosis or infection, unspecified Status: Acute Assessment and Plan: CT shows progression of retroperitoneal, mesenteric, and periportal inflammation with small perihepatic and pericholecystic ascites, likely sequela from acute pancreatitis. LFTs reviewed and are unremarkable with the exception of mildly elevated AST at 25. MRCP and RUQ US at last hospitalization [place]. [place] [address] consult to gastroenterology given recurrence of acute pancreatitis EGD showed gastic ulcer and gastritis Lipase has decreased to [address] patient back to clear liquids and advance to full liquids for lunch Fluids on hold for now Analgesics and antiemetics available as needed. (2) Acute UTI: Code(s): N39.0 - Urinary tract infection, site not specified Status: Acute Assessment and Plan: Urinalysis abnormal at presentation and she is symptomatic. No fever or leukocytosis. Continue IV Rocephin day 5, Will DC today Patient has no complaints of burning or pain when urinating Urine cultures showed growth of normal lyly indicating contamination No complaints of urinary dysfunction (3) Hematemesis: Code(s): K92.0 - Hematemesis Status: Acute Assessment and Plan: New onset hematemesis as of 12/14. No episodes today. Concern for duodenal ulcer vs carlos-anton tear given recent N/V. Appreciate gastroenterology consultation. EGD Today Switch to protonix BID (4) GERD (gastroesophageal reflux disease): Qualifiers: Esophagitis presence: without esophagitis Qualified Code(s): K21.9 - Gastro-esophageal reflux disease without esophagitis Code(s): K21.9 - Gastro-esophageal reflux disease without esophagitis Status: Acute Assessment and Plan: Currently asymptomatic but with new onset hematemesis Protonix bid as above (5) Normocytic anemia: Code(s): D64.9 - Anemia, unspecified Status: Acute Assessment and Plan: Hgb was 13.6 at presentation with decline down to 10.6. Suspect acute blood loss given recent hematemesis as noted above. Also suspect dilutional component given IV fluid hydration. Vital signs are stable and no evidence of ongoing blood loss Will repeat H&H this afternoon to ensure remaining stable. Transfuse as needed to stable Hgb >7.0 (6) Liver mass: Code(s): R16.0 - Hepatomegaly, not elsewhere classified Status: Acute Assessment and Plan: Hemangioma noted on CT a/p. This has been imaged previously with MRI in May 2020. (7) Stomach cancer: Code(s): C16.9 - Malignant neoplasm of stomach, unspecified Status: Acute Assessment and Plan: Biopsy and pathology found possible cancer cells Dr. Green consulted thank you Pathology still pending (8) Coping style affecting medical condition: Code(s): F54 - Psychological and behavioral factors associated with disorders or diseases classified elsewhere Status: Acute Assessment and Plan: Wants to be transferred to [place] for a second opinion. Due to the cancer cells that were found Pt not getting any sleep Subjective Date/time seen: 12/20/20 08:42 Interval history: Blanka Osborn is a 70 year old female with a history of GERD, anxiety, and recent hospitalization from 12/08-12/11 for pancreatitis who is seen in follow up for recurrent episode of pancreatitis. She stated that she was ok through the night until about 1999 when the pain came back at a 3/4. She stated that she did not get nauseated, but she did lose her appetite. I did talk to her about
[2020-12-20 14:00] VITALS: BP 131/84; PULSE 88; RESP 18; TEMP 36.8; O2SAT 97
[2020-12-20] MEDS: LACTATED RINGERS 1,000 ML 75 ML IV CONT (17:10)
[2020-12-20 18:49] LABS: Glucose Point of Care 186 mg/dl (65-105)
[2020-12-20 21:42] VITALS: O2SAT 95
[2020-12-20 22:00] VITALS: BP 132/81; PULSE 65; RESP 18; TEMP 36.3; O2SAT 95
[2020-12-21 06:00] VITALS: BP 110/43; PULSE 61; RESP 20; TEMP 36.7; O2SAT 98
[2020-12-21 08:55] LABS: CA 19-9 11 U/mL (<34)
[2020-12-21 09:24] LABS: Hematocrit 37.9 % (37.0-47.0); Hemoglobin 12.2 g/dL (12.0-15.0); Mean Corpuscular HGB Conc 32.2 g/dl (32-36); Mean Corpuscular Hemoglobin 29.5 pg (26-34); Mean Corpuscular Volume 91.5 fl (80-100); Mean Platelet Volume 10.6 fl (7.4-10.4); Platelet Count Result 255 k/mm3 (150-375); Red Blood Count 4.14 M/mm3 (4.2-5.4); Red Cell Distribution Width 14.6 % (11.5-14.5); White Blood Count 5.2 K/mm3 (4.5-10.0)
[2020-12-21] MEDS: PANTOPRAZOLE SODIUM IV 40 MG VIAL IV PUSH ×2 (09:34→20:38)
[2020-12-21] MEDS: LACTATED RINGERS 1,000 ML 75 ML IV CONT (09:41)
[2020-12-21 09:49] LABS: Alanine Aminotransferase 16 U/L (4-35); Albumin Level 3.7 g/dL (3.5-5.1); Alkaline Phosphatase 44 U/L (38-126); Aspartate Amino Transferase 29 U/L (14-36); Bilirubin,Total 0.4 mg/dL (0.2-1.3); Blood Urea Nitrogen 5 mg/dL (7-17); Calcium 8.8 mg/dL (8.4-10.2); Carbon Dioxide 27 mmol/L (22-30); Chloride 104 mmol/L (98-107); Estimated Glomerular Filt Rate > 60; Glucose 90 mg/dL (65-105); Potassium 3.4 mmol/L (3.4-5.0)
[2020-12-21 09:50] LABS: Anion Gap 9 mmol/L (8-16); Sodium 140 mmol/L (137-145)
--- NOTE | 2020-12-21 13:38 | P.PNIM_ITS ---
Progress Note: A&P Assessment and Plan (1) Acute pancreatitis: Qualifiers: Acute pancreatitis complication: unspecified Pancreatitis type: other Qualified Code(s): K85.80 - Other acute pancreatitis without necrosis or infection Code(s): K85.90 - Acute pancreatitis without necrosis or infection, unspecified Status: Acute Assessment and Plan: CT shows progression of retroperitoneal, mesenteric, and periportal inflammation with small perihepatic and pericholecystic ascites, likely sequela from acute pancreatitis. LFTs reviewed and are unremarkable with the exception of mildly elevated AST at 25. MRCP and RUQ US at last hospitalization [place] [address] at presentation. * Will place consult to gastroenterology given recurrence of acute pancreatitis * EGD showed gastic ulcer and gastritis * Lipase has decreased to 204 * Diet has been advanced to bland low fat diet * Fluids on hold for now * Analgesics and antiemetics available as needed. (2) Acute UTI: Code(s): N39.0 - Urinary tract infection, site not specified Status: Acute Assessment and Plan: Urinalysis abnormal at presentation and she is symptomatic. No fever or leukocytosis. * Continue IV Rocephin day 5, Will DC today * Patient has no complaints of burning or pain when urinating * Urine cultures showed growth of normal lyly indicating contamination * No complaints of urinary dysfunction (3) Hematemesis: Code(s): K92.0 - Hematemesis Status: Acute Assessment and Plan: New onset hematemesis as of 12/14. No episodes today. Concern for duodenal ulcer vs carlos-anton tear given recent N/V. * Appreciate gastroenterology consultation. * EGD Today * Switch to protonix BID (4) GERD (gastroesophageal reflux disease): Qualifiers: Esophagitis presence: without esophagitis Qualified Code(s): K21.9 - Gastro-esophageal reflux disease without esophagitis Code(s): K21.9 - Gastro-esophageal reflux disease without esophagitis Status: Acute Assessment and Plan: Currently asymptomatic but with new onset hematemesis * Protonix bid as above (5) Normocytic anemia: Code(s): D64.9 - Anemia, unspecified Status: Acute Assessment and Plan: Hgb was 13.6 at presentation with decline down to 10.6. Suspect acute blood loss given recent hematemesis as noted above. Also suspect dilutional component given IV fluid hydration. Vital signs are stable and no evidence of ongoing blood loss * Will repeat H&H this afternoon to ensure remaining stable. * Transfuse as needed to stable Hgb >7.0 (6) Liver mass: Code(s): R16.0 - Hepatomegaly, not elsewhere classified Status: Acute Assessment and Plan: Hemangioma noted on CT a/p. This has been imaged previously with MRI in May 2020. (7) Stomach cancer: Code(s): C16.9 - Malignant neoplasm of stomach, unspecified Status: Acute Assessment and Plan: * Biopsy and pathology found possible cancer cells * Dr. Green consulted thank you * Pathology still pending (8) Coping style affecting medical condition: Code(s): F54 - Psychological and behavioral factors associated with disorders or diseases classified elsewhere Status: Acute Assessment and Plan: * Wants to be transferred to [place] for a second opinion. Due to the cancer cells that were found * Pt not getting any sleep Time Spent Wit
--- NOTE | 2020-12-21 13:38 | PM.IMPN ---
Progress Note: A&P Assessment and Plan (1) Acute pancreatitis: Qualifiers: Acute pancreatitis complication: unspecified Pancreatitis type: other Qualified Code(s): K85.80 - Other acute pancreatitis without necrosis or infection Code(s): K85.90 - Acute pancreatitis without necrosis or infection, unspecified Status: Acute Assessment and Plan: CT shows progression of retroperitoneal, mesenteric, and periportal inflammation with small perihepatic and pericholecystic ascites, likely sequela from acute pancreatitis. LFTs reviewed and are unremarkable with the exception of mildly elevated AST at 25. MRCP and RUQ US at last hospitalization [place]. [place] [address] consult to gastroenterology given recurrence of acute pancreatitis EGD showed gastic ulcer and gastritis Lipase has decreased to 204 Diet has been advanced to bland low fat diet Fluids on hold for now Analgesics and antiemetics available as needed. (2) Acute UTI: Code(s): N39.0 - Urinary tract infection, site not specified Status: Acute Assessment and Plan: Urinalysis abnormal at presentation and she is symptomatic. No fever or leukocytosis. Continue IV Rocephin day 5, Will DC today Patient has no complaints of burning or pain when urinating Urine cultures showed growth of normal lyly indicating contamination No complaints of urinary dysfunction (3) Hematemesis: Code(s): K92.0 - Hematemesis Status: Acute Assessment and Plan: New onset hematemesis as of 12/14. No episodes today. Concern for duodenal ulcer vs carlos-anton tear given recent N/V. Appreciate gastroenterology consultation. EGD Today Switch to protonix BID (4) GERD (gastroesophageal reflux disease): Qualifiers: Esophagitis presence: without esophagitis Qualified Code(s): K21.9 - Gastro-esophageal reflux disease without esophagitis Code(s): K21.9 - Gastro-esophageal reflux disease without esophagitis Status: Acute Assessment and Plan: Currently asymptomatic but with new onset hematemesis Protonix bid as above (5) Normocytic anemia: Code(s): D64.9 - Anemia, unspecified Status: Acute Assessment and Plan: Hgb was 13.6 at presentation with decline down to 10.6. Suspect acute blood loss given recent hematemesis as noted above. Also suspect dilutional component given IV fluid hydration. Vital signs are stable and no evidence of ongoing blood loss Will repeat H&H this afternoon to ensure remaining stable. Transfuse as needed to stable Hgb >7.0 (6) Liver mass: Code(s): R16.0 - Hepatomegaly, not elsewhere classified Status: Acute Assessment and Plan: Hemangioma noted on CT a/p. This has been imaged previously with MRI in May 2020. (7) Stomach cancer: Code(s): C16.9 - Malignant neoplasm of stomach, unspecified Status: Acute Assessment and Plan: Biopsy and pathology found possible cancer cells Dr. Green consulted thank you Pathology still pending (8) Coping style affecting medical condition: Code(s): F54 - Psychological and behavioral factors associated with disorders or diseases classified elsewhere Status: Acute Assessment and Plan: Wants to be transferred to [place] for a second opinion. Due to the cancer cells that were found Pt not getting any sleep Time Spent With Patient Time with patient: 25 - 35 minutes Subjective Date/time seen: 12/21/20 13:38 Interval history: Blanka Osborn is a 70 year old female with a history of GERD, anxiety, and recent hospitalization from 12/08-12/11 for pancreatitis who is seen in follow up for recurrent episode of pancreatitis. She stated that she was ok through the night last night and did not have any nausea or vomiting. She did say that she was having some abdominal pain, but it was better
[2020-12-21 17:00] VITALS: BP 116/79; PULSE 57; RESP 16; TEMP 36.9; O2SAT 96
[2020-12-21 21:44] VITALS: BP 127/73; PULSE 71; RESP 18; TEMP 36.7; O2SAT 97
[2020-12-22] MEDS: ONDANSETRON INJ 4 MG/2 ML VIAL IV PUSH
[2020-12-22 05:46] VITALS: BP 116/77; PULSE 61; RESP 20; TEMP 36.6; O2SAT 98
[2020-12-22 06:32] LABS: Hematocrit 33.2 % (37.0-47.0); Hemoglobin 10.8 g/dL (12.0-15.0); Mean Corpuscular HGB Conc 32.5 g/dl (32-36); Mean Corpuscular Hemoglobin 29.3 pg (26-34); Mean Platelet Volume 10.8 fl (7.4-10.4); Platelet Count Result 239 k/mm3 (150-375); Red Blood Count 3.69 M/mm3 (4.2-5.4); Red Cell Distribution Width 14.6 % (11.5-14.5); White Blood Count 6.2 K/mm3 (4.5-10.0)
[2020-12-22 06:38] LABS: Anion Gap 4 mmol/L (8-16); Blood Urea Nitrogen 6 mg/dL (7-17); Calcium 8.4 mg/dL (8.4-10.2); Carbon Dioxide 31 mmol/L (22-30); Chloride 104 mmol/L (98-107); Estimated Glomerular Filt Rate > 60; Glucose 96 mg/dL (65-105); Potassium 3.5 mmol/L (3.4-5.0); Sodium 139 mmol/L (137-145)
--- NOTE | 2020-12-22 07:29 | WPDGIPROGNO ---
Progress Note: A&P Assessment and Plan (1) Stomach cancer: Code(s): C16.9 - Malignant neoplasm of stomach, unspecified Status: Acute Assessment and Plan: Gastric cancer identified in the body of the wall of the stomach. Oncology has seen the patient would anticipate follow-up with their service. Advance to bland diet as tolerated. Hopefully discharge in outpatient management at this point. (2) Acute pancreatitis: Qualifiers: Acute pancreatitis complication: unspecified Pancreatitis type: other Qualified Code(s): K85.80 - Other acute pancreatitis without necrosis or infection Code(s): K85.90 - Acute pancreatitis without necrosis or infection, unspecified Status: Acute Assessment and Plan: Status post acute pancreatitis. Lipase has now normalized. Would recommend advancing diet as tolerated slowly to a low-fat diet. CT scan suggest extension with increasing inflammation on most recent CT scan. This appears separate and not related to the tumor. CA 19-9 level is normal. (3) Liver mass: Code(s): R16.0 - Hepatomegaly, not elsewhere classified Status: Acute Assessment and Plan: One liver mass noted on CT scan. Most consistent with benign hemangioma. There is low bit more concern with the finding of a gastric cancer however. Oncology follow-up anticipated. Subjective Date/time seen: 12/22/20 07:29 Patient still not eating very well. No real appetite. Has some nausea sensation. No more bleeding. Denies abdominal pain. Review of Systems Review of Systems: All systems reviewed & are unremarkable except as noted in HPI and below Exam Narrative: Exam Narrative: Physical exam reveals patient be alert comfortable at rest. She is anicteric. Lungs are clear. Heart without murmur. Abdomen is scaphoid soft currently no tender no obvious masses. Objective Data Vital Signs Vital Signs: Vital Signs - 24 hr 12/21/20 17:00 12/21/20 21:44 12/22/20 05:46 Temperature 98.5 F 98.1 F 97.9 F Pulse Rate 57 L 71 61 Respiratory Rate 16 18 20 Blood Pressure 116/79 127/73 116/77 Pulse Oximetry 96 97 98 Intake/Output Intake/Output: Intake & Output 12/19/20 12/20/20 12/21/20 12/22/20 23:59 23:59 23:59 23:59 Intake Total 1720 2160 2580 200 Balance 1720 2160 2580 200 Meds/Results Medications: Active Medications Generic Name Dose Route Start Last Admin Trade Name Freq PRN Reason Stop Dose Admin Ondansetron HCl 4 mg 12/15/20 01:23 12/22/20 00:00 Ondansetron Inj 4 Mg/2 Ml Vial IV PUSH 4 mg Q4H PRN Administration Nausea Pantoprazole Sodium 40 mg 12/18/20 21:00 12/21/20 20:38 Pantoprazole Sodium Iv 40 Mg Vial IV PUSH 40 mg Q12HR SAMUEL Administration Simethicone 0.6 ml 12/16/20 13:12 12/16/20 13:12 Simethicone Oral Suspension 20 Mg/0.3 Ml 30 Ml Bottle PO 0.6 ml ONCE PRN Administration Gas Discomfort Radiology Results: ITS Impressions Abdomen/Pelvis CT 12/15/20 08:48 IMPRESSION: 1. Progression of retroperitoneal, mesenteric, periportal inflammation. Small perihepatic, pericholecystic ascites. Probably sequela from acute pancreatitis. 2. Persistent transverse colonic wall edema, could be reactive from pancreatic inflammation or colitis. 3. Distended but otherwise unremarkable gallbladder. 4. Distended stomach with gastroesophageal reflux, esophagitis. 5. Liver hemangioma. Labs Labs: Laboratory Results - last 24 hr 12/18/20 12/21/20 12/21/20 11:40 08:41 08:41 WBC 5.2 RBC 4.14 L Hgb 12.2 Hct 37.9 MCV 91.5 MCH 29.5 MCHC 32.2 RDW 14.6 H Plt Count 255 MPV 10.6 H Sodium 140 Potassium 3.4 Chloride 104 Carbon Dioxide 27 Anion Gap 9 BUN 5 L Creatinine 0.60 L Estim Creat Clear Calc Not Reportable Estimated GFR > 60 Glucose 90 Calcium 8.8 Total Bilirubin 0.4 AST 29 ALT 16 Alkaline Phosphatase 44 To
[2020-12-22] MEDS: PANTOPRAZOLE SODIUM IV 40 MG VIAL IV PUSH (08:25)
--- NOTE | 2020-12-22 13:00 | P.DS_ITS ---
DS: Admitting Diagnosis Admitting Diagnosis Admitting Diagnosis: Acute pancreatitis DS: Discharge Diagnosis Discharge Diagnosis (1) Acute pancreatitis: Qualifiers: Acute pancreatitis complication: unspecified Pancreatitis type: other Qualified Code(s): K85.80 - Other acute pancreatitis without necrosis or infe ction Code(s): K85.90 - Acute pancreatitis without necrosis or infection, unspecified Status: Acute Assessment and Plan: CT shows progression of retroperitoneal, mesenteric, and periportal inflammation with small perihepatic and pericholecystic ascites, likely sequela from acute pancreatitis. LFTs reviewed and are unremarkable with the exception of mildly elevated AST at 25. MRCP and RUQ US at last hospitalization [place] [address] at presentation. * Will place consult to gastroenterology given recurrence of acute pancreatitis * EGD showed gastic ulcer and gastritis * Lipase has decreased to 204 * Diet has been advanced to bland low fat diet * Fluids on hold for now * Analgesics and antiemetics available as needed. (2) Acute UTI: Code(s): N39.0 - Urinary tract infection, site not specified Status: Acute Assessment and Plan: Urinalysis abnormal at presentation and she is symptomatic. No fever or leukocytosis. * Continue IV Rocephin day 5, Will DC today * Patient has no complaints of burning or pain when urinating * Urine cultures showed growth of normal lyly indicating contamination * No complaints of urinary dysfunction (3) Hematemesis: Qualifiers: Nausea presence: with nausea Qualified Code(s): K92.0 - Hematemesis Code(s): K92.0 - Hematemesis Status: Acute Assessment and Plan: New onset hematemesis as of 12/14. No episodes today. Concern for duodenal ulcer vs carlos-anton tear given recent N/V. * Appreciate gastroenterology consultation. * EGD Today * Switch to protonix BID (4) GERD (gastroesophageal reflux disease): Qualifiers: Esophagitis presence: without esophagitis Qualified Code(s): K21.9 - Gastro-esophageal reflux disease without esophagitis Code(s): K21.9 - Gastro-esophageal reflux disease without esophagitis Status: Acute Assessment and Plan: Currently asymptomatic but with new onset hematemesis * Protonix bid as above (5) Normocytic anemia: Code(s): D64.9 - Anemia, unspecified Status: Acute Assessment and Plan: Hgb was 13.6 at presentation with decline down to 10.6. Suspect acute blood loss given recent hematemesis as noted above. Also suspect dilutional component given IV fluid hydration. Vital signs are stable and no evidence of ongoing blood loss * Will repeat H&H this afternoon to ensure remaining stable. * Transfuse as needed to stable Hgb >7.0 (6) Liver mass: Code(s): R16.0 - Hepatomegaly, not elsewhere classified Status: Acute Assessment and Plan: Hemangioma noted on CT a/p. This has been imaged previously with MRI in May 2020. (7) Stomach cancer: Qualifiers: Malignant neoplasm of stomach location: unspecified location Qualified Code(s): C16.9 - Malignant neoplasm of stomach, unspecified Code(s): C16.9 - Malignant neoplasm of stomach, unspecified Status: Acute Assessment and Plan: * Biopsy and pathology found possible cancer cells * Dr. Green consulted thank you * Pathology still pending (8) Coping style affecting medical
--- NOTE | 2020-12-22 13:00 | PM.DS ---
DS: Admitting Diagnosis Admitting Diagnosis Admitting Diagnosis: Acute pancreatitis DS: Discharge Diagnosis Discharge Diagnosis (1) Acute pancreatitis: Qualifiers: Acute pancreatitis complication: unspecified Pancreatitis type: other Qualified Code(s): K85.80 - Other acute pancreatitis without necrosis or infection Code(s): K85.90 - Acute pancreatitis without necrosis or infection, unspecified Status: Acute Assessment and Plan: CT shows progression of retroperitoneal, mesenteric, and periportal inflammation with small perihepatic and pericholecystic ascites, likely sequela from acute pancreatitis. LFTs reviewed and are unremarkable with the exception of mildly elevated AST at 25. MRCP and RUQ US at last hospitalization [place]. [place] [address] consult to gastroenterology given recurrence of acute pancreatitis EGD showed gastic ulcer and gastritis Lipase has decreased to 204 Diet has been advanced to bland low fat diet Fluids on hold for now Analgesics and antiemetics available as needed. (2) Acute UTI: Code(s): N39.0 - Urinary tract infection, site not specified Status: Acute Assessment and Plan: Urinalysis abnormal at presentation and she is symptomatic. No fever or leukocytosis. Continue IV Rocephin day 5, Will DC today Patient has no complaints of burning or pain when urinating Urine cultures showed growth of normal lyly indicating contamination No complaints of urinary dysfunction (3) Hematemesis: Qualifiers: Nausea presence: with nausea Qualified Code(s): K92.0 - Hematemesis Code(s): K92.0 - Hematemesis Status: Acute Assessment and Plan: New onset hematemesis as of 12/14. No episodes today. Concern for duodenal ulcer vs carlos-anton tear given recent N/V. Appreciate gastroenterology consultation. EGD Today Switch to protonix BID (4) GERD (gastroesophageal reflux disease): Qualifiers: Esophagitis presence: without esophagitis Qualified Code(s): K21.9 - Gastro-esophageal reflux disease without esophagitis Code(s): K21.9 - Gastro-esophageal reflux disease without esophagitis Status: Acute Assessment and Plan: Currently asymptomatic but with new onset hematemesis Protonix bid as above (5) Normocytic anemia: Code(s): D64.9 - Anemia, unspecified Status: Acute Assessment and Plan: Hgb was 13.6 at presentation with decline down to 10.6. Suspect acute blood loss given recent hematemesis as noted above. Also suspect dilutional component given IV fluid hydration. Vital signs are stable and no evidence of ongoing blood loss Will repeat H&H this afternoon to ensure remaining stable. Transfuse as needed to stable Hgb >7.0 (6) Liver mass: Code(s): R16.0 - Hepatomegaly, not elsewhere classified Status: Acute Assessment and Plan: Hemangioma noted on CT a/p. This has been imaged previously with MRI in May 2020. (7) Stomach cancer: Qualifiers: Malignant neoplasm of stomach location: unspecified location Qualified Code(s): C16.9 - Malignant neoplasm of stomach, unspecified Code(s): C16.9 - Malignant neoplasm of stomach, unspecified Status: Acute Assessment and Plan: Biopsy and pathology found possible cancer cells Dr. Green consulted thank you Pathology still pending (8) Coping style affecting medical condition: Code(s): F54 - Psychological and behavioral factors associated with disorders or diseases classified elsewhere Status: Acute Assessment and Plan: Wants to be transferred to [place] for a second opinion. Due to the cancer cells that were found Pt not getting any sleep DS: Summary Hospital Course Hospital Course: Blanka Osborn is a 70 year old female with a history of GERD, anxiety, and recent hospitaliz
[2020-12-22 19:28] LABS: IFOB Positive Control Positive; Immunochemical Fecal Occult Bl Negative (N)
== END 2020-12-22 15:00 | disposition home or self-care (01) | DRG 374 ==
LOC: ANHED 12-15 01:26 → ANH3MEDSUR 12-15 07:37
PROVIDERS: Internal Medicine Gastroenterology; Physician Assistant; Admitting Provider Internal Medicine; Emergency Provider Emergency Medicine; PCP Emergency Medicine; Visit Provider Nurse Practitioner
PROC: 0DJ08ZZ Inspection of Upper Intestinal Tract, Via Natural or Artificial Opening Endoscopic (ICD-10-PCS; CPT 43235; principal; 2020-12-16 13:30)
DX: C16.9 Malignant neoplasm of stomach, unspecified (principal); K85.80 Other acute pancreatitis without necrosis or infection; N39.0 Urinary tract infection, site not specified; K25.3 Acute gastric ulcer without hemorrhage or perforation; K29.70 Gastritis, unspecified, without bleeding; F54 Psychological and behavioral factors associated with disorders or diseases classified elsewhere; K21.9 Gastro-esophageal reflux disease without esophagitis; K59.00 Constipation, unspecified; R16.0 Hepatomegaly, not elsewhere classified; D64.9 Anemia, unspecified; F41.9 Anxiety disorder, unspecified; E55.9 Vitamin D deficiency, unspecified; Z79.899 Other long term (current) drug therapy; Z86.010 Personal history of colon polyps; Z87.891 Personal history of nicotine dependence; Z98.42 Cataract extraction status, left eye; Z96.1 Presence of intraocular lens
CPT/HCPCS: 36415; 74177; 80048; 80053; 81001; 82274; 82948; 83605; 83690; 83735; 84478; 85014; 85018; 85025; 85027; 86301; 87086; 87088; 88305; 88313; 88342; 96361; 96374; 96375; 99285; A9270; C9113; J0696; J1650; J2270; J2405; J2704; J7030; J7120; Q9967

== ENCOUNTER 2020-12-28 08:34 | Emergency (ER) | payer MEDICARE, OTHER, SELFPAY ==
--- NOTE | ~2020-12-28 | CT_ITS ---
EXAMINATION: CT abdomen pelvis wo con DATE: 12/28/2020 11:05 INDICATION: Right flank pain TECHNIQUE: Computed tomography (CT) of the abdomen and pelvis was performed without intravenous contr ast. The dose-length product was 153.48 mGy-cm. Automated exposure control and iterative reconstructi on technique were employed. COMPARISON: 12/15/2020. FINDINGS: Lung bases are unremarkable. Heart size normal. There are multiple low-density lesions in t he spleen, compatible with cysts. Gallbladder is mildly prominent with ill-defined margins and sugges tion of pericholecystic fluid. Consider cholecystitis in the appropriate clinical setting. There are small amount or free fluid in the abdomen and pelvis. There is diffuse mesenteric edema. There is mes enteric and peritoneal nodularity. Consider peritoneal carcinomatosis. Nonobstructive bowel gas patte rn. There is right hydronephrosis. There is abrupt termination of the right ureter. The left kidney i s unremarkable. There is a small nonobstructing right renal stone. There is gastric wall thickening. IMPRESSION: 1. There is diffuse infiltration of the mesentery and peritoneum with nodularity. Consider peritoneal carcinomatosis. 2: Multiple low density lesions of the liver are most likely cysts with probable mild intrahepatic bi liary dilatation. 3: Diffuse gastric wall thickening which may be due to gastritis or malignancy. No definite obstructi on. 4: Right hydronephrosis. No obstructing stone or mass identified with abrupt termination of the right mid ureter. 5: Ascites. 6: Nonobstructing right nephrolithiasis. Reviewed, dictated and finalized at location A. IMPRESSION: 1. There is diffuse infiltration of the mesentery and peritoneum with nodularit y. Consider peritoneal carcinomatosis. 2: Multiple low density lesions of the liver are most likely cysts with probabl e mild intrahepatic biliary dilatation. 3: Diffuse gastric wall thickening which may be due to gastritis or malignancy. No definite obstruction. 4: Right hydronephrosis. No obstructing stone or mass identified with abrupt te rmination of the right mid ureter. 5: Ascites. 6: Nonobstructing right nephrolithiasis.
[2020-12-28 09:05] VITALS: BP 132/88; PULSE 93; RESP 18; TEMP 36.8; O2SAT 98
[2020-12-28 09:27] LABS: Basophils Percent Auto 0.4 % (0.2-1.2); Eosinophils Absolute Auto 0.2 K/mm3 (0-0.3); Eosinophils Percent Auto 2.4 % (0-4.4); Hemoglobin 12.3 g/dL (12.0-15.0); Immature Granulocyte Absolute 0.03 K/mm3 (0.00-0.031); Immature Granulocyte Percent A 0.4 % (0-0.5); Lymphocytes Absolute Auto 1.44 K/mm3 (0.9-3.2); Lymphocytes Percent Auto 17.4 % (18.3-44.2); Mean Corpuscular HGB Conc 32.4 g/dl (32-36); Mean Corpuscular Hemoglobin 29.2 pg (26-34); Mean Corpuscular Volume 90.3 fl (80-100); Mean Platelet Volume 10.7 fl (7.4-10.4); Monocytes Absolute Auto 0.6 K/mm3 (0.1-0.6); Monocytes Percent Auto 6.9 % (2.6-8.5); Neutrophils Percent Auto 72.5 % (45.5-73.1); Platelet Count Result 312 k/mm3 (150-375); Red Blood Count 4.21 M/mm3 (4.2-5.4); Red Cell Distribution Width 14.4 % (11.5-14.5); White Blood Count 8.3 K/mm3 (4.5-10.0)
[2020-12-28 09:34] LABS: Add Urine Microscopic? YES; Appearance Urine Clear (Clear); Bilirubin Urine Negative (Negative); Blood Urine Negative (Negative); Color Urine Yellow (Yellow); Glucose Urine UA Negative (Negative); Ketones Urine 2+ mg/dL (Negative); Leukocyte Esterase Ur 1+ LEU/UL (Negative); Mucus Urine Few /lpf; Nitrate Urine Negative (Negative); Protein Urine Negative (Negative); RBC Urine 0-2 /hpf (0-2); Specific Grav Ur 1.015 (1.001-1.035); Squamous Epithelial Cell Urine Occasional /hpf (Few); Urobilinogen Urine Negative mg/dL (<2.0)
[2020-12-28 09:37] LABS: Alanine Aminotransferase 10 U/L (4-35); Albumin Level 3.8 g/dL (3.5-5.1); Alkaline Phosphatase 53 U/L (38-126); Anion Gap 14 mmol/L (8-16); Aspartate Amino Transferase 25 U/L (14-36); Bilirubin,Total 0.5 mg/dL (0.2-1.3); Blood Urea Nitrogen 11 mg/dL (7-17); Calcium 8.8 mg/dL (8.4-10.2); Carbon Dioxide 27 mmol/L (22-30); Chloride 96 mmol/L (98-107); Estimated Glomerular Filt Rate > 60; Glucose 97 mg/dL (65-105); Lipase 201 U/L (23-300); Potassium 3.3 mmol/L (3.4-5.0); Sodium 137 mmol/L (137-145)
[2020-12-28] MEDS: FAMOTIDINE 20 MG/2 ML VIAL IV PUSH (11:18)
[2020-12-28] MEDS: SODIUM CHLORIDE 0.9% IV 1,000 ML 999 ML IV CONT (11:18)
[2020-12-28] MEDS: HYOSCYAMINE SULFATE 0.125 MG TABLET PO (11:19)
--- NOTE | 2020-12-28 11:48 | ED.GENADULT ---
HPI - General Adult General Chief complaint: Abdominal Pain <Marcos Bowie PA-C - Last Filed: 12/28/20 12:27> Stated complaint: flank pain/abdominal pain <RACHEL Smalls Last Filed: 12/28/20 12:27> Time Seen by Provider: 12/28/20 10:14 <RACHEL Smalls Last Filed: 12/28/20 12:27> Source: patient, family, RN notes reviewed and old records reviewed <RACHEL Smalls Last Filed: 12/28/20 12:27> Mode of arrival: ambulatory <RACHEL Smalls Last Filed: 12/28/20 12:27> Limitations: no limitations <RACHEL Smalls Last Filed: 12/28/20 12:27> History of Present Illness HPI narrative: Patient is a 70-year-old female who presents with abdominal discomfort patient in the recent past has had diagnosis of pancreatitis also was found to have abnormal biopsy on her upper endoscopy and is to follow with cancer specialist at [facility] tomorrow patient was discharged from [facility] after her pancreatitis bout on Tuesday had a recurrence of abdominal pain on went to [facility] was found to have narrowing in her right ureter with plan follow-up with urology on Tuesday to discuss possible stenting. Patient notes today she is having right flank discomfort and suprapubic discomfort with fullness of the abdomen patient notes nausea but denies any emesis. Patient on arrival appears uncomfortable but not in distress. Patient denies any rectal bleeding or melena <RACHEL Smalls Last Filed: 12/28/20 12:27> Related Data Home medications: Home Medications Medication Instructions Recorded Confirmed cholecalciferol (vitamin D3) 25 1,000 unit PO DAILY tablet 06/11/20 12/26/20 mcg (1,000 unit) tablet polyethylene glycol 3350 [Miralax] 17 g PO QAM PRN 12/15/20 12/26/20 <RACHEL Smalls Last Filed: 12/28/20 12:27> Allergies/adverse reactions: Allergies Allergy/AdvReac Type Severity Reaction Status Date / Time caffeine AdvReac Severe VERY Verified 12/28/20 09:10 SENSITIVE, HAS RAPID HEART BEAT food Allergy Other Uncoded 12/28/20 09:10 <Marcos Bowie PA-C - Last Filed: 12/28/20 12:27> Review of Systems Review of Systems: All systems reviewed & are unremarkable except as noted in HPI and below <Marcos Bowie PA-C - Last Filed: 12/28/20 12:27> [facility] Past Medical History Medical History: Medical History Anxiety Coping style affecting medical condition Fever Food additives allergy status GERD (gastroesophageal reflux disease) Headache Macular edema left eye Multiple food allergies Other screening mammogram Palpitations Stomach cancer Throat pain Trigger finger of left thumb Vitamin D deficiency disease <Marcos Bowie PA-C - Last Filed: 12/28/20 12:27> Surgical History Surgical History: Surgical History H/O cataract removal with insertion of prosthetic lens left eye H/O colonoscopy with polypectomy H/O: hysterectomy <Marcos Bowie PA-C - Last Filed: 12/28/20 12:27> Family History Family History: Family History (Reviewed 12/26/20 @ 11:48 by Brigida Virgen, [facility]) Mother Family history of lung cancer, Onset Age: 76 Sibling Diabetes mellitus Family history of cardiovascular disease Family history of malignant neoplasm of breast in first degree relative, Onset Age: 64 Father Hypertension <Marcos Bowie PA-C - Last Filed: 12/28/20 12:27> Social History Social History: Social History Social History: the patient lives with her . She has 2 children. 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 She is to smoke many years ago. No alcohol or illicit drugs. No marijuana patient's is a durable power personal injury attorney for healthcare. The
[2020-12-28 12:48] VITALS: BP 134/89; PULSE 89; RESP 18; O2SAT 99
== END 2020-12-28 12:49 | disposition home or self-care (01) ==
PROVIDERS: Emergency Provider General Practice; PCP Emergency Medicine
DX: R10.9 Unspecified abdominal pain (principal); K21.9 Gastro-esophageal reflux disease without esophagitis; H35.81 Retinal edema; E55.9 Vitamin D deficiency, unspecified; Z87.891 Personal history of nicotine dependence; N20.0 Calculus of kidney; N13.30 Unspecified hydronephrosis; R18.8 Other ascites; R93.5 Abnormal findings on diagnostic imaging of other abdominal regions, including retroperitoneum; Z98.42 Cataract extraction status, left eye; Z96.1 Presence of intraocular lens
CPT/HCPCS: 36415; 74176; 80053; 81001; 83690; 85025; 87086; 96361; 96365; 96375; 99284; A9270; J0131; J7030